=== PATIENT | male | born 1960 | race Caucasian/White ===

== ENCOUNTER 2016-10-01 00:57 | Emergency (ER) | payer OTHER ==
[~2016-10-01] VITALS: Ht 182.9 cm; Wt 106.0 kg
[2016-10-01 01:00] VITALS: BP 227/100; PULSE 93; RESP 18; TEMP 98.1; O2SAT 93
[2016-10-01] MEDS ORDERED: GLIP5TAB8 PO (01:35)
[2016-10-01] MEDS ORDERED: PRAV40TA2 PO (01:35)
[2016-10-01] MEDS ORDERED: AMLO2.5T PO (01:35)
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
[2016-10-01] MEDS ORDERED: amLODIPine BESYLATE 5 MG TAB PO ONE (01:45)
[2016-10-01] MEDS ORDERED: NAPROXEN 500 MG TAB PO ONE (01:45)
[2016-10-01] MEDS ORDERED: HYDROCHLOROTHIAZIDE 12.5 MG CAP PO ONE (01:45)
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
[2016-10-01] MEDS ORDERED: DICL75TA PO (01:57)
== END 2016-10-01 02:16 | disposition home or self-care (01) ==
LOC: NEPB 00:57
DX: M25.512 Pain in left shoulder (principal); I10 Essential (primary) hypertension; E11.9 Type 2 diabetes mellitus without complications; Z87.828 Personal history of other (healed) physical injury and trauma
CPT/HCPCS: 73030; 99283

== ENCOUNTER 2017-05-25 03:21 | Inpatient (IN) | payer OTHER ==
[~2017-05-25] VITALS: Ht 182.9 cm; Wt 92.0 kg
[2017-05-25] VITALS (14 sets, daily range): BP systolic 152–169; BP diastolic 58–85; PULSE 78–100; RESP 16–20; TEMP 96.7–98.7; O2SAT 92–96
[~2017-05-25 03:21] MED LIST: AMLO2.5T PO; DICL75TA PO; GLIP5TAB8 PO; PRAV40TA2 PO
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
[2017-05-25] MEDS ORDERED: SODIUM CHLORIDE 0.9% FLUSH 10 ML FLUSH IVF PRN ×2 (04:00→07:30)
[2017-05-25] MEDS ORDERED: MORPHINE SULFATE 4 MG/ML INJ IV ONE (04:00)
[2017-05-25] MEDS ORDERED: ONDANSETRON HCL 4 MG/2 ML VIAL IVP ONE (04:00)
[2017-05-25 04:38] LABS: AUTOMATED NEUTROPHIL # 4.6 TH/MM3 (1.8-7.7); BASOPHIL % 0.6 % (0.0-2.0); EOSINOPHIL # 0.3 TH/MM3 (0-0.4); EOSINOPHIL % 4.3 % (0.0-4.0); HEMATOCRIT 22.3 % (39.0-51.0); LYMPHOCYTE # 0.7 TH/MM3 (1.0-4.8); MEAN CELL VOLUME 77.3 FL (80.0-100.0); MEAN CORPUSCULAR HEMOGLOBIN 24.7 PG (27.0-34.0); MONO % 7.2 % (0.0-8.0); NEUT % 75.9 % (16.0-70.0); PLATELET COUNT 420 TH/MM3 (150-450); RED BLOOD COUNT 2.88 MIL/MM3 (4.50-5.90); RED CELL DISTRIBUTION WIDTH 15.7 % (11.6-17.2)
--- NOTE | 2017-05-25 04:44 | RADRPT ---
EXAM DATE/TIME: 05/25/2017 04:11 [facility] COMPARISON: No previous studies available for comparison. INDICATIONS : Trauma. Fall. Neck pain. RADIATION DOSE: 26.56 CTDIvol (mGy) ; Patient motion MEDICAL HISTORY : Chronic obstructive pulmonary disease. Diabetes mellitus type 2. Hypertension. SURGICAL HISTORY : None. ENCOUNTER: Initial ACUITY: 1 day PAIN SCALE: 10/10 LOCATION: neck TECHNIQUE: Volumetric scanning of the cervical spine was performed. Multiplanar reconstructions in the sagittal, coronal and oblique axial planes were performed. Using automated exposure control and adjustment o f the mA and/or kV according to patient size, radiation dose was kept as low as reasonably achievable to obtain optimal diagnostic quality images. DICOM format image data is available electronically f or review and comparison. FINDINGS: Mild compression fracture with a nondisplaced oblique transverse mid vertebral body cleft seen at T1, probably acute. No retropulsed fracture fragments or fracture-associated foraminal or spinal stenosi s demonstrated. There is loss of height of C7 with considerable irregularity of the superior endplate, all appears to be chronic. Severe narrowing seen at the C6/C7 disc. There is right greater than left facet osteoarthritis at C7/T1 and a couple millimeters of degenerati ve appearing anterolisthesis. Moderate to severe disc space narrowing and uncovertebral/facet osteoarthritis seen at C5/C6. CONCLUSION: 1. Nondisplaced fracture with mild compression deformity of T1 vertebral body, probably acute. No epi dural hematoma or retropulsed fracture fragments. 2. Other findings appear chronic and please see above. Mario Moreno MD on May 25, 2017 at 4:38 Board Certified Radiologist. This report was verified electronically.
--- NOTE | 2017-05-25 04:50 | RADRPT ---
EXAM DATE/TIME: 05/25/2017 04:22 [facility] COMPARISON: No previous studies available for comparison. INDICATIONS : Left hip pain post fall. MEDICAL HISTORY : None. SURGICAL HISTORY : None. ENCOUNTER: Initial ACUITY: 1 day PAIN SCORE: 7/10 LOCATION: Left pelvis FINDINGS: Examination of the left hip was performed with AP Pelvis. The primary and secondary trabecular patte rn of the femoral neck is intact. The hip joint is of normal width without significant sclerosis or bony hypertrophy. The acetabulum is grossly intact. CONCLUSION: Pelvis and left hip are intact. Mario Moreno MD on May 25, 2017 at 4:49 Board Certified Radiologist. This report was verified electronically.
[2017-05-25 04:52] LABS: CHLORIDE 98 MEQ/L (98-107); POTASSIUM 4.1 MEQ/L (3.5-5.1); SODIUM (NA) 135 MEQ/L (136-145)
--- NOTE | 2017-05-25 04:53 | RADRPT ---
EXAM DATE/TIME: 05/25/2017 04:33 [facility] COMPARISON: No previous studies available for comparison. INDICATIONS : Right wrist pain post fall. MEDICAL HISTORY : None. SURGICAL HISTORY : None. ENCOUNTER: Initial ACUITY: 1 day PAIN SCORE: 7/10 LOCATION: Right upper extremity FINDINGS: No acute fracture or subluxation seen of the right wrist. Chronic appearing destruction of the proximal carpal row noted, especially the lunate and scaphoid. T here is scapholunate interval widening. There is diffuse soft tissue swelling at the level of the carpus. CONCLUSION: 1. There is soft tissue swelling but I don't see an acute fracture or subluxation of the right wrist. 2. Chronic appearing destruction of the lunate and scaphoid, nonspecific but possibly related to old trauma or chronic arthropathy. Mario Moreno MD on May 25, 2017 at 4:49 Board Certified Radiologist. This report was verified electronically.
[2017-05-25 04:54] LABS: HEMO FLAGS AUTO DIFF
[2017-05-25 04:55] LABS: ANION GAP 7 MEQ/L (5-15); BICARBONATE 29.9 MEQ/L (21.0-32.0); BLOOD UREA NITROGEN 45 MG/DL (7-18); PROTHROMBIN TIME - PATIENT 11.2 SEC (9.8-11.6)
--- NOTE | 2017-05-25 04:56 | RADRPT ---
EXAM DATE/TIME: 05/25/2017 04:30 [facility] COMPARISON: No previous studies available for comparison. INDICATIONS : Lumbar spine pain post fall. MEDICAL HISTORY : None. SURGICAL HISTORY : None. ENCOUNTER: Initial ACUITY: 1 day PAIN SCORE: 7/10 LOCATION: Bilateral lumbar spine FINDINGS: No acute fracture or subluxation seen of the lumbar spine. Moderate disc space narrowing with chronic appearing endplate irregularity seen at L4/L5. Similar but milder findings are seen at L3/L4 and L5/S1. Each of these 3 levels have moderate to severe bilatera l facet osteoarthritis. There are a couple millimeters of degenerative appearing anterolisthesis of L 3/L4. Mild dextroconvex curvature noted. CONCLUSION: Chronic appearing findings as above. No fracture or acute-appearing malalignment demonstrated of the lumbar spine. Mario Moreno MD on May 25, 2017 at 4:54 Board Certified Radiologist. This report was verified electronically.
[2017-05-25 04:58] LABS: GLOMERULAR FILTRATION RATE 26 ML/MIN (>89)
--- NOTE | 2017-05-25 04:58 | RADRPT ---
EXAM DATE/TIME: 05/25/2017 04:31 [facility] COMPARISON: No previous studies available for comparison. INDICATIONS : Chest pain post fall. MEDICAL HISTORY : None. SURGICAL HISTORY : None. ENCOUNTER: Initial ACUITY: 1 day PAIN SCORE: 7/10 LOCATION: Bilateral chest FINDINGS: No infiltrate, effusion or pneumothorax. Heart size normal. No acute bony abnormality demonstrated. There are old fractures posteriorly of the left sixth and sev enth ribs, healed. CONCLUSION: No evidence of acute cardiopulmonary disease. Mario Moreno MD on May 25, 2017 at 4:55 Board Certified Radiologist. This report was verified electronically.
[2017-05-25] MEDS: SODIUM CHLOR 0.9% 1000 ML INJ 1,000 ML IV SCH ×6 (05:04→21:46)
[2017-05-25 05:32] LABS: ALCOHOL LESS THAN 3 MG/DL (0-5)
[2017-05-25 05:43] LABS: BLOOD, URINE LARGE (NEG); GLUCOSE,URINE NEG (NEG); KETONE, URINE NEG (NEG); NITRITE,URINE NEG (NEG)
[2017-05-25] MEDS ORDERED: SODIUM CHLOR 0.9% 1000 ML INJ 1,000 ML IV ONE (05:45)
[2017-05-25] MEDS ORDERED: MORPHINE SULFATE 4 MG/ML INJ IV PUSH ONE (05:45)
[2017-05-25] MEDS ORDERED: ONDANSETRON HCL 4 MG/2 ML VIAL IV PUSH ONE ×2 (05:45→08:00)
[2017-05-25 05:51] LABS: INDIRECT BILIRUBIN 0.1 MG/DL (0.0-0.8); TOTAL BILIRUBIN ADULT 0.2 MG/DL (0.2-1.0)
[2017-05-25 05:56] LABS: OVALOCYTES 1+ (NORMAL); SCAN/DIFF AUTO DIFF CONFIRMED
[2017-05-25 06:21] LABS: URINE COLOR YELLOW (YELLW/STRAW)
--- NOTE | 2017-05-25 06:21 | RADRPT ---
EXAM DATE/TIME: 05/25/2017 05:55 [facility] COMPARISON: No previous studies available for comparison. INDICATIONS : Trauma. Fall. Left pelvic pain. ORAL CONTRAST: No oral contrast ingested. RADIATION DOSE: 17.81 CTDIvol (mGy) MEDICAL HISTORY : Chronic obstructive pulmonary disease. Diabetes mellitus type 2. Hypertension. SURGICAL HISTORY : None. ENCOUNTER: Initial ACUITY: 1 day PAIN SCALE: 10/10 LOCATION: Left pelvis TECHNIQUE: Volumetric scanning of the abdomen and pelvis was performed. Using automated exposure control and ad justment of the mA and/or kV according to patient size, radiation dose was kept as low as reasonably achievable to obtain optimal diagnostic quality images. DICOM format image data is available electro nically for review and comparison. FINDINGS: No fracture seen of the visualized osseous structures. Mild bilateral hip osteoarthritis noted. There is disc space narrowing with chronic endplate irregularity at L4/L5. Also moderate osteoarthritis of the pubic symphysis. Innumerable cysts of the liver and both kidneys noted measuring up to 4 cm in size compatible with au tosomal dominant polycystic kidney disease. A few scattered nonobstructing stones of both kidneys are also noted, measuring up to 5 mm in size. No ureteral calculus or hydronephrosis/hydroureter seen. L iver is enlarged, 26 cm cranial caudal. There is also splenomegaly measuring 18.2 cm craniocaudal. No free fluid or blood seen in the abdominal or pelvic cavity. No obstruction or inflammatory changes are seen in the gastrointestinal tract. A fat containing umbilical hernia is noted. No infiltrate or effusion seen the visualized lung bases. CONCLUSION: 1. No visceral organ injury, fracture or other acute abnormality. 2. Degenerative changes of the lumbar spine, both hips and the pubic symphysis. There is considerable end plate irregularity at L4/L5, presumably reactive/degenerative but chronic discitis or the sequel a of previous discitis could have a similar appearance. 3. Findings related to polycystic kidney disease with innumerable variable sized cysts throughout the liver and both kidneys noted. 4. Scattered sub-5 mm nonobstructing stones in both kidneys. 5. Nonspecific hepatosplenomegaly. Mario Moreno MD on May 25, 2017 at 6:14 Board Certified Radiologist. This report was verified electronically.
[2017-05-25 06:24] LABS: SQUAMOUS EPITHELIAL CELL URINE 0-5 /hpf (0-5)
[2017-05-25 06:26] LABS: COMMENT (UR) CULTURE INDICATED; CULTURE IF INDICATED CULTURE INDICATED
[2017-05-25] MEDS ORDERED: HYDROmorphone HCL PF 1 MG/ML VIAL IV PUSH ONE ×2 (06:45→08:00)
[2017-05-25] MEDS ORDERED: cefTRIAXone INJ 1,000 MG in SODIUM CHLORIDE 0.9% INJ 100 ML IV ONE (07:45)
[2017-05-25] MEDS ORDERED: LACTULOSE SYRUP 20 GM/30 ML CUP PO PRN (08:45)
[2017-05-25] MEDS ORDERED: BISACODYL 10 MG SUPP RECTAL PRN (08:45)
[2017-05-25] MEDS ORDERED: DEXTROSE 50% IN WATER 50 ML VIAL(D50) IV PRN (08:45)
[2017-05-25] MEDS ORDERED: ONDANSETRON HCL 4 MG/2 ML VIAL IVP PRN (08:45)
[2017-05-25] MEDS ORDERED: NALOXONE HCL 0.4 MG/ML AMP IV PRN (08:45)
[2017-05-25] MEDS ORDERED: SENNOSIDES 8.6 MG TAB PO PRN (08:45)
[2017-05-25] MEDS ORDERED: SODIUM CHLOR 0.9% 250 ML INJ 250 ML IV ONE (08:45)
[2017-05-25] MEDS ORDERED: ACETAMINOPHEN/HYDROcodone 325 MG/5 MG TAB PO PRN (08:45)
[2017-05-25] MEDS ORDERED: RESP: ALBUTEROL 2.5 MG/IPRATROPIUM 0.5 MG NEB (PRN) NEB (08:45)
[2017-05-25] MEDS ORDERED: GLUCAGON 1 MG/ML VIAL OTHER PRN (08:45)
[2017-05-25] MEDS ORDERED: SODIUM CHLORIDE 0.9% FLUSH 10 ML FLUSH IV FLUSH PRN (08:45)
[2017-05-25] MEDS ORDERED: ACETAMINOPHEN/HYDROcodone 325 MG/10 MG TAB PO PRN (08:45)
[2017-05-25] MEDS ORDERED: ACETAMINOPHEN 325 MG TAB PO PRN (08:45)
[2017-05-25] MEDS: SODIUM CHLORIDE 0.9% FLUSH 10 ML FLUSH IV FLUSH SCH ×2 (09:00→21:44)
[2017-05-25] MEDS ORDERED: SODIUM CHLORIDE 0.9% FLUSH 10 ML FLUSH IV FLUSH SCH (09:00)
[2017-05-25] MEDS: DOCUSATE SODIUM 50 MG/SENNA 8.6 MG TAB PO SCH ×2 (09:41→21:40)
[2017-05-25] MEDS ORDERED: FURO20TA PO (09:48)
[2017-05-25] MEDS ORDERED: IPRAAER INH (09:48)
[2017-05-25] MEDS ORDERED: BUSP10TA PO (09:48)
[2017-05-25] MEDS ORDERED: GABA300C5 PO (09:48)
[2017-05-25] MEDS ORDERED: DOXA1TAB34 PO (09:48)
[2017-05-25] MEDS: INSULIN ASPART SUPPLEMENTAL SCALE SQ SCH ×3 (11:27→21:44)
[2017-05-25] MEDS: GABAPENTIN 300 MG CAP PO SCH ×2 (13:30→21:40)
--- NOTE | 2017-05-25 13:35 | HHI.HP ---
[facility] Service [facility] Primary Care Physician [facility] Admission Diagnosis intractable pain; T1 fracture; anemia; MARICARMEN Diagnoses: Chief Complaint: fall and left upper leg pain Travel History International Travel<30 Days: No Contact w/Intl Traveler <30 Da: No Traveled to Known Affected Are: No History of Present Illness This is a 57-year-old male past medical history of chronic kidney disease, polycystic kidney disease, polycystic liver disease, hypertension, COPD, and anxiety who presented with a fall. Patient stated that he try to prevent his mom from falling down the stairs and fell down with her. He stated that he was able to get up it was very painful and went to his bed. He stated that after he laid down he was not able to get up at all. Because of this he went to the emergency department. Patient was initially seen and [place] in which extensive workup was done. He was found to have nondisplaced fracture of T1 vertebrae with mild compression. Neurosurgeon Dr. Hill consulted and recommended transfer to the [facility]. Patient was seen by me he was complaining of severe left upper leg pain. He said that he feels like his hip might of fracture. Denied any changes in sensation. He denies any back pain. Patient was also found to be anemic. He stated that he has a history anemia and he was told to take ferrous sulfate but he did not take the medication. He stated that he was told that he had an anemia due to his polycystic kidney disease. Patient denies any GI bleed. He does admit feeling fatigue. Denies any chest pain, shortness of breathing, palpitation, lightheadedness or dizziness. All other review symptoms reviewed and negative. Past Family Social History Past Medical History Umbilical hernia Hypertension Chronic pain from L4/L5 COPD/asthma Anxiety disorder Iron deficiency anemia Polycystic kidney disease Polyp cystic liver disease Hyperlipidemia Type 2 diabetes Past Surgical History Right wrist surgery Bilateral knee arthroscopy Reported Medications Reported Meds & Active Scripts Active Diclofenac Sodium DR (Diclofenac Sodium) 75 Mg Tabdr 75 Mg PO BID Reported Gabapentin 300 Mg Cap 300 Mg PO BID Furosemide 20 Mg Tab 20 Mg PO DAILY Doxazosin (Doxazosin Mesylate) 4 Mg Tab 4 Mg PO HS Buspirone (Buspirone HCl) 10 Mg Tab 10 Mg PO TID Combivent Respimat Inh (Ipratropium-Albuterol Inh) 20-100 Usp/Act Aero 1 Puff INH QID Amlodipine (Amlodipine Besylate) 2.5 Mg Tab 2.5 Mg PO DAILY Pravastatin 40 Mg Tab 40 Mg PO DAILY Glipizide 5 Mg Tab 5 Mg PO BIDAC Take 30 minutes before a meal Allergies: Coded Allergies: No Known Allergies (Unverified , 10/01/16) Active Ordered Medications Current Medications Morphine Sulfate (Morphine Inj) 2 mg ONCE ONCE IV Last administered on 05:04; Start 05/25/17 at 04:00; Stop 05/25/17 at 04:01; Status DC Ondansetron HCl (Zofran Inj) 4 mg ONCE ONCE IVP Last administered on 05:04; Start 05/25/17 at 04:00; Stop 05/25/17 at 04:01; Status DC Sodium Chloride (NS Flush) 2 ml UNSCH PRN IVF FLUSH AFTER USING IV ACCESS; Start 05/25/17 at 04:00; Stop 05/25/17 at 09:34; Status DC Sodium Chloride 1,000 ml @ 100 mls/hr Q10H IV Last administered on 05/25/17 05:04; Start 05/25/17 at 04:00 Sodium Chloride 1,000 ml @ 999 mls/hr BOLUS ONCE IV Last administered on 05/25 05:52; Start 05/25/17 at 05:45; Stop 05/25/17 at 06:45; Status DC Ondansetron HCl (Zofran Inj) 4 mg ONCE ONCE IV PUSH Last administered on 05:52; Start 05/25/17 at 05:45; Stop 05/25/17 at 05:46; Status DC Morphine Sulfate (Morphine Inj) 4 mg ONCE ONCE IV PUSH Last administered on 05:52; Start 05/25/17 at 05:45; Stop 05/25/17 at 05:46; Status DC Hydromorphone HCl (Dilaudid Pf Inj) 0.5 mg ONCE ONCE IV PUSH Last administered on 05/25/17 06:42; Start 05/25/17 at 06:45; Stop 05/25/17 at 06:46 ; Status DC Sodium Chloride (NS Flush) 2 ml BID IV FLUSH ; Start 05/25/17 at 09:00 Sodium Chloride (NS Flush) 2 ml UNSCH PRN IVF FLUSH AFTER USING IV ACCESS; Start 05/25/17 at 07:30 Ceftriaxone Sodium 1000 mg/ Sodium Chloride 100 ml @ 200 mls/hr ONCE ONCE IV Last administered on 05/25/17 07:48; Start 05/25/17 at 07:45; Stop 05/25/17 at 08:14; Status DC Ondansetron HCl (Zofran Inj) 4 mg ONCE ONCE IV PUSH Last administered on 08:07; Start 05/25/17 at 08:00; Stop 05/25/17 at 08:01; Status DC Hydromorphone HCl (Dilaudid Pf Inj) 1 mg ONCE ONCE IV PUSH Last administered on 05/25/17 08:07; Start 05/25/17 at 08:00; Stop 05/25/17 at 08:01; Status DC Sodium Chloride 250 ml @ 15 mls/hr ONCE ONCE IV Last administered on 08:45; Start 05/25/17 at 08:45; Stop 05/26/17 at 01:24 Ceftriaxone Sodium 1000 mg/ Sodium Chloride 100 ml @ 200 mls/hr Q24H IV ; Start 05/26/17 at 08:00 Sodium Chloride 1,000 ml @ 100 mls/hr Q10H IV ; Start 05/25/17 at 08:38 Sodium Chloride (NS Flush) 2 ml UNSCH PRN IV FLUSH FLUSH AFTER USING IV ACCESS ; Start 05/25/17 at 08:45; Stop 05/25/17 at 09:33; Status DC Sodium Chloride (NS Flush) 2 ml BID IV FLUSH ; Start 05/25/17 at 09:00; Stop 07/01 at 09:33; Status DC Acetaminophen (Tylenol) 650 mg Q4H PRN PO TEMP > 100.4; Start 05/25/17 at 08:45 Ondansetron HCl (Zofran Inj) 4 mg Q6H PRN IVP NAUSEA OR VOMITING; Start at 08:45 Acetaminophen/ Hydrocodone Bitart ([place] 5-325 Mg) 1 tab Q4H PRN PO PAIN SCALE 3 TO 5; Start 05/25/17 at 08:45; Stop 05/25/17 at 13:15; Status DC Acetaminophen/ Hydrocodone Bitart ([place] 10-325 Mg) 1 tab Q4H PRN PO PAIN SCALE 6 TO 10 Last administered on 05/25/17 09:40; Start 05/25/17 at 08:45; Stop 05/25/17 at 13:15; Status DC Naloxone HCl (Narcan Inj) 0.4 mg UNSCH PRN IV SEE LABEL COMMENTS; Start at 08:45 Senna/Docusate Sodium ([place]-Colace) 1 tab BID PO ; Start 05/25/17 at 10:00 Magnesium Hydroxide (Milk Of Magnesia Liq) 30 ml Q12H PRN PO MILD - MODERATE CONSTIPATION; Start 05/25/17 at 08:45 Sennosides (Senokot) 17.2 mg Q12H PRN PO MODERATE - SEVERE CONSTIPATION; Start 05/25/17 at 08:45 Bisacodyl (Dulcolax Supp) 10 mg DAILY PRN RECTAL SEVERE CONSITIPATION; Start at 08:45 Lactulose (Lactulose Liq) 30 ml DAILY PRN PO SEVERE CONSITIPATION; Start at 08:45 Albuterol/ Ipratropium (Duoneb Neb) 1 ampule Q2HR NEB PRN NEB dyspnea; Start at 08:45 Dextrose (D50w (Vial) Inj) 50 ml UNSCH PRN IV HYPOGLYCEMIA-SEE COMMENTS; Start 05/25/17 at 08:45 Glucagon (Glucagon Inj) 1 mg UNSCH PRN OTHER HYPOGLYCEMIA-SEE COMMENTS; Start 05/25/17 at 08:45 Insulin Aspart (NovoLOG SUPPLEMENTAL SCALE) 1 ACHS SLIDING SCALE SQ Last administered on 05/25/17 11:27; Start 05/25/17 at 11:00 Hydromorphone HCl (Dilaudid Pf Inj) 1 mg Q4H PRN IV PUSH pain 4-10; Start 05/25 at 13:15; Status UNV Oxycodone/ Acetaminophen (Percocet 10-325 Mg) 1 tab Q4H PRN PO pain 1-3; Start 05/25/17 at 13:15; Status UNV Family History Family history is reviewed per patient negative. Social History Patient stated that he is trying to quit tobacco use and he smokes about half a pack per day. Denies any alcohol illicit drug use. 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 Physical Exam Vital Signs Vital Signs Date Time Temp Pulse Resp B/P (MAP) Pulse Ox O2 Delivery O2 Flow Rate FiO2 05/25/17 09:45 97.8 89 20 152/85 (107) 92 05/25/17 07:49 90 16 169/85 (113) 94 Room Air 05/25/17 06:29 88 18 167/84 (111) 95 Room Air 05/25/17 06:16 98 18 162/71 (101) 96 Room Air 05/25/17 06:16 18 05/25/17 05:53 Room Air 05/25/17 05:29 20 05/25/17 04:08 20 96 Room Air 05/25/17 04:08 96 Room Air 05/25/17 03:47 98.7 100 20 154/58 (90) 96 Physical Exam GENERAL: This is a well-nourished, well-developed patient, in a c-collar in pain. SKIN: No rashes, ecchymoses or lesions. Cool and dry. HEAD: Atraumatic. Normocephalic. No temporal or scalp tenderness. EYES: Pupils equal round and reactive. Extraocular motions intact. No scleral icterus. No injection or drainage. ENT: Nose without bleeding, purulent drainage or septal hematoma. Throat without erythema, tonsillar hypertrophy or exudate. Uvula midline. Airway patent. NECK: Trachea midline. No JVD or lymphadenopathy. Supple, nontender, no meningeal signs. CARDIOVASCULAR: Regular rate and rhythm without murmurs, gallops, or rubs. RESPIRATORY: Bilateral wheezing GASTROINTESTINAL: Abdomen soft, non-tender, nondistended. No hepato-splenomegaly , or palpable masses. No guarding. Reducible umbilical hernia noted. MUSCULOSKELETAL: Extremities without clubbing, cyanosis, or edema. Left leg decreased range of motion at the hip due to pain. Tenderness to palpation of the left femur. No calf tenderness. Negative Homans sign bilaterally. NEUROLOGICAL: Awake and alert. Cranial nerves II through XII intact. Motor and sensory grossly within normal limits. Five out of 5 muscle strength in all muscle groups. Normal speech. Laboratory Laboratory Tests Test 05/25/17 04:29 05/25/17 05:16 05/25/17 05:36 White Blood Count 6.0 Red Blood Count 2.88 Hemoglobin 7.1 Hematocrit 22.3 Mean Corpuscular Volume 77.3 Mean Corpuscular Hemoglobin 24.7 Mean Corpuscular Hemoglobin Concent 32.0 Red Cell Distribution Width 15.7 Platelet Count 420 Mean Platelet Volume 6.3 Neutrophils (%) (Auto) 75.9 Lymphocytes (%) (Auto) 12.0 Monocytes (%) (Auto) 7.2 Eosinophils (%) (Auto) 4.3 Basophils (%) (Auto) 0.6 Neutrophils # (Auto) 4.6 Lymphocytes # (Auto) 0.7 Monocytes # (Auto) 0.4 Eosinophils # (Auto) 0.3 Basophils # (Auto) 0.0 CBC Comment AUTO DIFF Differential Comment AUTO DIFF CONFIRMED Ovalocytes 1+ Prothrombin Time 11.2 Prothromb Time International Ratio 1.0 Activated Partial Thromboplast Time 29.0 Blood Urea Nitrogen 45 Creatinine 2.60 Random Glucose 147 Calcium Level 7.8 Sodium Level 135 Potassium Level 4.1 Chloride Level 98 Carbon Dioxide Level 29.9 Anion Gap 7 Estimat Glomerular Filtration Rate 26 Magnesium Level 1.8 Ethyl Alcohol Level LESS THAN 3 Urine Color YELLOW Urine Turbidity HAZY Urine pH 7.0 Urine Specific Edwards 1.011 Urine Protein 30 Urine Glucose (UA) NEG Urine Ketones NEG Urine Occult Blood LARGE Urine Nitrite NEG Urine Bilirubin NEG Urine Leukocyte Esterase SMALL Urine RBC 4-9 Urine WBC 50-99 Urine WBC Clumps FEW Urine Squamous Epithelial Cells 0-5 Microscopic Urinalysis Comment CULTURE INDICATED Total Bilirubin 0.2 Direct Bilirubin 0.1 Indirect Bilirubin 0.1 Aspartate Amino Transf (AST/SGOT) 32 Alanine Aminotransferase (ALT/SGPT) 19 Alkaline Phosphatase 117 Total Protein 7.4 Albumin 2.2 Date/Time Source Procedure Growth Status 05/25/17 08:00 Blood Peripheral Aerobic Blood Culture Pending Received 05/25/17 08:00 Blood Peripheral Anaerobic Blood Culture Pending Received 05/25/17 05:16 Urine Clean Catch Urine Culture Pending Received Result Diagram: 05/25/17 0429 05/25/17 0429 Imaging Last Impressions Lumbar Spine X-Ray 05/25/17 035 Signed Impressions: Service Date/Time: Thursday, May 25, 2017 04:30 - CONCLUSION: Chronic appearing findings as above. No fracture or acute-appearing malalignment demonstrated of the lumbar spine. Mario Moreno MD Chest X-Ray 05/25/17350 Signed Impressions: Service Date/Time: Thursday, May 25, 2017 04:31 - CONCLUSION: No evidence of acute cardiopulmonary disease. Mario Moreno MD Cervical Spine CT 05/25/17350 Signed Impressions: Service Date/Time: Thursday, May 25, 2017 04:11 - CONCLUSION: 1. Nondisplaced fracture with mild compression deformity of T1 vertebral body, probably acute. No epidural hematoma or retropulsed fracture fragments. 2. Other findings appear chronic and please see above. Mario Moreno MD Wrist X-Ray 05/25/17 0000 Signed Impressions: Service Date/Time: Thursday, May 25, 2017 04:33 - CONCLUSION: 1. There is soft tissue swelling but I don't see an acute fracture or subluxation of the right wrist. 2. Chronic appearing destruction of the lunate and scaphoid, nonspecific but possibly related to old trauma or chronic arthropathy. Mario Moreno MD Hip and Pelvis X-Ray 05/25/17 0000 Signed Impressions: Service Date/Time: Thursday, May 25, 2017 04:22 - CONCLUSION: Pelvis and left hip are intact. Mario Moreno MD Abdomen/Pelvis CT 05/25/17 0000 Signed Impressions: Service Date/Time: Thursday, May 25, 2017 05:55 - CONCLUSION: 1. No visceral organ injury, fracture or other acute abnormality. 2. Degenerative changes of the lumbar spine, both hips and the pubic symphysis. There is considerable end plate irregularity at L4/L5, presumably reactive/degenerative but chronic discitis or the sequela of previous discitis could have a similar appearance. 3. Findings related to polycystic kidney disease with innumerable variable sized cysts throughout the liver and both kidneys noted. 4. Scattered sub-5 mm nonobstructing stones in both kidneys. 5. Nonspecific hepatosplenomegaly. MD Arben Bonilla VTE Risk Assessment Caprini VTE Risk Assessment: Mod/High Risk (score >= 2) Caprini Risk Assessment Model Point Value = 1 Point Value = 2 Point Value = 3 Point Value = 5 Age 41-60 Minor surgery BMI > 25 kg/m2 Swollen legs Varicose veins or History of unexplained or recurrent spontaneous Oral contraceptives or hormone replacement Sepsis (< 1 month) Serious lung disease, including pneumonia (< 1 month) Abnormal pulmonary function Acute myocardial infarction Congestive heart failure (< 1 month) History of inflammatory bowel disease Medical patient at bed rest Age 61-74 Arthroscopic surgery Major open surgery (> 45 min) Laparoscopic surgery (> 45 min) Malignancy Confined to bed (> 72 hours) Immobilizing plaster cast Central venous access Age >= 75 History of VTE Family history of VTE Factor V Leiden Prothrombin [id number] Lupus anticoagulant Anticardiolipin antibodies Elevated serum homocysteine Heparin-induced thrombocytopenia Other congenital or acquired thrombophilia Stroke (< 1 month) Elective arthroplasty Hip, pelvis, or leg fracture Acute spinal cord injury (< 1 month) Prophylaxis Regimen Total Risk Factor Score Risk Level Prophylaxis Regimen 0-1 Low Early ambulation 2 Moderate Order ONE of the following: *Sequential Compression Device (SCD) *Heparin 5000 units SQ BID 3-4 Higher Order ONE of the following medications: *Heparin 5000 units SQ TID *Enoxaparin/Lovenox 40 mg SQ daily (WT < 150 kg, CrCl > 30 mL/min) *Enoxaparin/Lovenox 30 mg SQ daily (WT < 150 kg, CrCl > 10-29 mL/min) *Enoxaparin/Lovenox 30 mg SQ BID (WT < 150 kg, CrCl > 30 mL/min) AND/OR *Sequential Compression Device (SCD) 5 or more Highest Order ONE of the following medications: *Heparin 5000 units SQ TID (Preferred with Epidurals) *Enoxaparin/Lovenox 40 mg SQ daily (WT < 150 kg, CrCl > 30 mL/min) *Enoxaparin/Lovenox 30 mg SQ daily (WT < 150 kg, CrCl > 10-29 mL/min) *Enoxaparin/Lovenox 30 mg SQ BID (WT < 150 kg, CrCl > 30 mL/min) AND *Sequential Compression Device (SCD) Assessment and Plan Assessment and Plan 57-year-old male presented with mechanical fall with presented with Nondisplaced with mild compression of T1 vertebrae -Patient in c-collar. To be managed by neurosurgery. Neurosurgery consulted. Left upper leg pain -Hip x-ray was negative. Will get a femur x-ray. -Uncontrolled. Patient received morphine, Dilaudid, Narco which has not improved pain. Patient stated that a lot of works the best. -We will give oxycodone versus Dilaudid when necessary for pain. We'll also start him on Flexeril. COPD/asthma -Patient is asymptomatic but does have wheezing on exam. We'll schedule DuoNeb' s. -He is only on albuterol for this. -Smoking cessation. Chronic kidney disease -We do not have a baseline. Most likely due to polycystic kidney disease this is his baseline. -We'll continue to monitor. Avoid nephrotoxins. Strict ins and outs. Anemia, symptomatic -Patient has a history of iron deficiency anemia secondary to polycystic kidney disease. No signs of active bleeding. -He noted he has been structurally fatigue. Hemoglobin here 7.1. He initially refused transfusion. Patient does agree if repeat hemoglobin is still low he will get transfusion with packed red blood cells. -We'll start patient on ferrous sulfate. -Education given on compliance. Tobacco dependence -Encourage smoking cessation. Patient is already trying to quit. He declined any nicotine patch. Type 2 diabetes -Will hold glipizide. Start him on a insulin sliding scale. Hypoglycemic. Education given. Polycystic kidney disease/polycystic liver disease/hyperlipidemia/hypertension/ anxiety -Resume home medication. DVT prophylaxis -Will hold off on any chemoprophylaxis secondary to possible procedure. Code Status Full code Discussed Condition With Patient and his nurse Physician Certification 2 Midnight Certification Type: Admission for Inpatient Services Order for Inpatient Services The services are ordered in accordance with Medicare regulations or non- Medicare payer requirements, as applicable. In the case of services not specified as inpatient-only, they are appropriately provided as inpatient services in accordance with the 2-midnight benchmark. Estimated LOS (days): 3 3 days is the estimated time the patient will need to remain in the hospital, assuming treatment plan goals are met and no additional complications. Post-Hospital Plan: Mary Ellen Dean MD May 25, 2017 13:35
[2017-05-25] MEDS ORDERED: PILL SPLITTER OTHER PRN (13:45)
[2017-05-25] MEDS: HYDROmorphone HCL PF 1 MG/ML VIAL IV PUSH PRN ×3 (13:47→21:41)
[2017-05-25] MEDS: oxyCODONE/ACETAMINOPHEN 10 MG/325 MG TAB PO PRN ×3 (13:48→23:45)
[2017-05-25] MEDS: amLODIPine BESYLATE 5 MG TAB PO SCH (13:49)
[2017-05-25] MEDS: CYCLOBENZAPRINE HCL 10 MG TAB PO SCH ×2 (13:49→21:41)
--- NOTE | 2017-05-25 15:08 | RADRPT ---
EXAM DATE/TIME: 05/25/2017 14:32 [facility] COMPARISON: No previous studies available for comparison. INDICATIONS : Fall, left hip pain. MEDICAL HISTORY : None. SURGICAL HISTORY : None. ENCOUNTER: Subsequent ACUITY: 2 days PAIN SCORE: 8/10 LOCATION: Left hip FINDINGS: Two view examination of the left femur demonstrates no evidence of fracture or dislocation. Bony min eralization is normal. The soft tissue structures are intact. CONCLUSION: No acute disease. Charanjit Orr MD on May 25, 2017 at 15:06 Board Certified Radiologist. This report was verified electronically.
[2017-05-25] MEDS: RESP: ALBUTEROL 2.5 MG/IPRATROPIUM 0.5 MG NEB (SCH) NEB ×2 (15:46→20:53)
[2017-05-25 16:35] LABS: RETIC % 1.6 % (0.4-3.0)
[2017-05-25 16:36] LABS: REVIEW FLAG FINAL
--- NOTE | 2017-05-25 17:14 | PD.CONS ---
History of Present Illness Service Neurosurgery Consult Requested By Emergency room-Dr. Singh Reason for Consult T1 fracture Primary Care Physician [facility] Diagnoses: History of Present Illness 57-year-old male was helping his mother down some stairs on Friday morning when they both fell. He had immediate onset of back and left hip and groin pain. He went to bed last evening and the pain continued to increase. He was brought to the emergency room per EMS today. His initial x-rays revealed a T1 nondisplaced fracture. He complains of neck pain as well as rather severe left lateral hip pain with radiation to the left lateral hip and thigh. He complains of mild numbness in the left anterior thigh. No bowel or bladder dysfunction. He does have a history of chronic back pain. States he has had abnormalities at the L4-5 level. Has had previous episodes of sciatica. Review of Systems Constitutional: DENIES: Fever Eyes: DENIES: Blurred vision, Diplopia Ears, nose, mouth, throat: DENIES: Vertigo Respiratory: DENIES: Shortness of breath Cardiovascular: DENIES: Chest pain, Palpitations Gastrointestinal: DENIES: Abdominal pain, Nausea Genitourinary: COMPLAINS OF: Urgency, Dysuria Musculoskeletal: COMPLAINS OF: Joint pain, Muscle aches Hematologic/lymphatic: DENIES: Bruising Neurologic: COMPLAINS OF: Abnormal gait, DENIES: Headache Psychiatric: DENIES: Anxiety Past Family Social History Allergies: Coded Allergies: No Known Allergies (Unverified , 10/01/16) Past Medical History Polycystic kidney disease Asthma COPD Umbilical hernia Hypertension High cholesterol 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 Past Surgical History Distal right forearm/hand graft Bilateral arthroscopic knee surgery Reported Medications Reported Meds & Active Scripts Active Diclofenac Sodium DR (Diclofenac Sodium) 75 Mg Tabdr 75 Mg PO BID Reported Gabapentin 300 Mg Cap 300 Mg PO BID Furosemide 20 Mg Tab 20 Mg PO DAILY Doxazosin (Doxazosin Mesylate) 4 Mg Tab 4 Mg PO HS Buspirone (Buspirone HCl) 10 Mg Tab 10 Mg PO TID Combivent Respimat Inh (Ipratropium-Albuterol Inh) 20-100 Nursing Home/Act Aero 1 Puff INH QID Amlodipine (Amlodipine Besylate) 2.5 Mg Tab 2.5 Mg PO DAILY Pravastatin 40 Mg Tab 40 Mg PO DAILY Glipizide 5 Mg Tab 5 Mg PO BIDAC Take 30 minutes before a meal Family History Mother with cancer Follow with heart disease Social History Tobacco use Denies alcohol use Physical Exam Vital Signs Vital Signs Date Time Temp Pulse Resp B/P (MAP) Pulse Ox O2 Delivery O2 Flow Rate FiO2 05/25/17 16:07 97.1 86 18 160/71 92 05/25/17 15:47 97.2 82 20 161/77 93 05/25/17 15:47 97.2 82 20 161/72 93 05/25/17 12:00 96.8 85 19 159/76 (103) 93 05/25/17 09:45 97.8 89 20 152/85 (107) 92 05/25/17 07:49 90 16 169/85 (113) 94 Room Air 05/25/17 06:29 88 18 167/84 (111) 95 Room Air 05/25/17 06:16 98 18 162/71 (101) 96 Room Air 05/25/17 06:16 18 05/25/17 05:53 Room Air 05/25/17 05:29 20 05/25/17 04:08 20 96 Room Air 05/25/17 04:08 96 Room Air 05/25/17 03:47 98.7 100 20 154/58 (90) 96 Physical Exam GENERAL: This is a well-nourished, well-developed patient, in no apparent distress. SKIN: No rashes, ecchymoses or lesions. Cool and dry. HEAD: Atraumatic. Normocephalic. No temporal or scalp tenderness. EYES: Pupils equal round and reactive. Extraocular motions intact. No scleral icterus. No injection or drainage. ENT: Nose without bleeding, purulent drainage or septal hematoma. Throat without erythema, tonsillar hypertrophy or exudate. Uvula midline. Airway patent. NECK: Trachea midline. No JVD or lymphadenopathy. Supple, nontender, no meningeal signs. CARDIOVASCULAR: Regular rate and rhythm without murmurs, gallops, or rubs. RESPIRATORY: Clear to auscultation. Breath sounds equal bilaterally. No wheezes , rales, or rhonchi. GASTROINTESTINAL: Abdomen soft, non-tender, nondistended. No hepato-splenomegaly , or palpable masses. No guarding. MUSCULOSKELETAL: Significant tenderness over the left sciatic notch greater than left mid gluteal musculature. Mild to moderate left lateral hip- trochanteric bursa tenderness. Moderate discomfort in the left hip with right lower extremity motor testing. Positive edema and tenderness with some chronic deformity in the right wrist and thumb. NEUROLOGICAL: Awake and alert Oriented X3 Speech is clear Conversant and appropriate Follow simple commands well Answers questions appropriately Reasonable judgment and insight Recent and remote memory are intact No evidence of anxiety or depression Pupils are 3 mm mildly reactive to light Extraocular movements, visual lr to confrontation, facial sensory and motor , tongue, palate, and sternocleidomastoid testing are intact. Normal bilateral shoulder shrug. Sensation intact to light touch upper extremities with mild diffuse decrease light touch distal lower extremities Right hand intrinsics 3/5 Tibialis anterior 3+/5 right and 4/5 left Cinthya's response absent bilateral No ankle clonus Plantar response is neutral Otherwise normal strength in major flexion and extension groups throughout the upper and lower extremities Left mild gluteal tenderness and severe sciatic notch tenderness Laboratory Laboratory Tests Test 05/25/17 04:29 05/25/17 05:16 05/25/17 05:36 05/25/17 14:24 White Blood Count 6.0 Red Blood Count 2.88 Hemoglobin 7.1 Hematocrit 22.3 Mean Corpuscular Volume 77.3 Mean Corpuscular Hemoglobin 24.7 Mean Corpuscular Hemoglobin Concent 32.0 Red Cell Distribution Width 15.7 Platelet Count 420 Mean Platelet Volume 6.3 Neutrophils (%) (Auto) 75.9 Lymphocytes (%) (Auto) 12.0 Monocytes (%) (Auto) 7.2 Eosinophils (%) (Auto) 4.3 Basophils (%) (Auto) 0.6 Neutrophils # (Auto) 4.6 Lymphocytes # (Auto) 0.7 Monocytes # (Auto) 0.4 Eosinophils # (Auto) 0.3 Basophils # (Auto) 0.0 CBC Comment AUTO DIFF Differential Comment AUTO DIFF CONFIRMED Ovalocytes 1+ Prothrombin Time 11.2 Prothromb Time International Ratio 1.0 Activated Partial Thromboplast Time 29.0 Blood Urea Nitrogen 45 Creatinine 2.60 Random Glucose 147 Calcium Level 7.8 Sodium Level 135 Potassium Level 4.1 Chloride Level 98 Carbon Dioxide Level 29.9 Anion Gap 7 Estimat Glomerular Filtration Rate 26 Magnesium Level 1.8 Ethyl Alcohol Level LESS THAN 3 Urine Color YELLOW Urine Turbidity HAZY Urine pH 7.0 Urine Specific [place] 1.011 Urine Protein 30 Urine Glucose (UA) NEG Urine Ketones NEG Urine Occult Blood LARGE Urine Nitrite NEG Urine Bilirubin NEG Urine Leukocyte Esterase SMALL Urine RBC 4-9 Urine WBC 50-99 Urine WBC Clumps FEW Urine Squamous Epithelial Cells 0-5 Microscopic Urinalysis Comment CULTURE INDICATED Total Bilirubin 0.2 Direct Bilirubin 0.1 Indirect Bilirubin 0.1 Aspartate Amino Transf (AST/SGOT) 32 Alanine Aminotransferase (ALT/SGPT) 19 Alkaline Phosphatase 117 Total Protein 7.4 Albumin 2.2 Reticulocyte Count 1.6 Absolute Reticulocyte Count 38.3 Test 05/25/17 14:35 Hemoglobin 6.2 Date/Time Source Procedure Growth Status 05/25/17 08:00 Blood Peripheral Aerobic Blood Culture Pending Received 05/25/17 08:00 Blood Peripheral Anaerobic Blood Culture Pending Received 05/25/17 05:16 Urine Clean Catch Urine Culture Pending Received Result Diagram: 05/25/17 1435 05/25/17 0429 Imaging Last Impressions Femur X-Ray 05/25/17 1359 Signed Impressions: Service Date/Time: Thursday, May 25, 2017 14:32 - CONCLUSION: No acute disease. Charanjit Orr MD Lumbar Spine X-Ray 05/25/17 0351 Signed Impressions: Service Date/Time: Thursday, May 25, 2017 04:30 - CONCLUSION: Chronic appearing findings as above. No fracture or acute-appearing malalignment demonstrated of the lumbar spine. Mario Moreno MD Chest X-Ray 05/25/17 0351 Signed Impressions: Service Date/Time: Thursday, May 25, 2017 04:31 - CONCLUSION: No evidence of acute cardiopulmonary disease. Mario Moreno MD Cervical Spine CT 05/25/17 0351 Signed Impressions: Service Date/Time: Thursday, May 25, 2017 04:11 - CONCLUSION: 1. Nondisplaced fracture with mild compression deformity of T1 vertebral body, probably acute. No epidural hematoma or retropulsed fracture fragments. 2. Other findings appear chronic and please see above. Mario Moreno MD Wrist X-Ray 05/25/17 0000 Signed Impressions: Service Date/Time: Thursday, May 25, 2017 04:33 - CONCLUSION: 1. There is soft tissue swelling but I don't see an acute fracture or subluxation of the right wrist. 2. Chronic appearing destruction of the lunate and scaphoid, nonspecific but possibly related to old trauma or chronic arthropathy. Mario Moreno MD Hip and Pelvis X-Ray 05/25/17 0000 Signed Impressions: Service Date/Time: Thursday, May 25, 2017 04:22 - CONCLUSION: Pelvis and left hip are intact. Mario Moreno MD Abdomen/Pelvis CT 05/25/17 0000 Signed Impressions: Service Date/Time: Thursday, May 25, 2017 05:55 - CONCLUSION: 1. No visceral organ injury, fracture or other acute abnormality. 2. Degenerative changes of the lumbar spine, both hips and the pubic symphysis. There is considerable end plate irregularity at L4/L5, presumably reactive/degenerative but chronic discitis or the sequela of previous discitis could have a similar appearance. 3. Findings related to polycystic kidney disease with innumerable variable sized cysts throughout the liver and both kidneys noted. 4. Scattered sub-5 mm nonobstructing stones in both kidneys. 5. Nonspecific hepatosplenomegaly. Mario Moreno MD Assessment and Plan Assessment and Plan Impression: 1. Mild T1 compression fracture without significant retropulsion. 2. Significant cervical spondylosis and degenerative disc disease with question of previous discitis 3. L4 5 severe degenerative changes with question of previous discitis. 4. Probable chronic left L5 radiculopathy with motor deficit 5. Left gluteal myofascial injury. Probable mild left sciatic nerve contusion. Plan: Short course of Toradol [place] J cervical collar Out of bed with assistance PT eval and treat Marko Hill MD May 25, 2017 17:14
[2017-05-25] MEDS: busPIRone HCL 10 MG TAB PO SCH (17:46)
[2017-05-25] MEDS: DOXAZOSIN MESYLATE 4 MG TAB PO SCH (21:39)
[2017-05-25] MEDS: FERROUS SULFATE 325 MG (65 MG ELEMENTAL IRON) TAB PO SCH (21:40)
[2017-05-25] MEDS: KETOROLAC TROMETHAMINE 30 MG/ML (IVP) VIAL IV PUSH SCH (23:45)
[2017-05-26] VITALS (7 sets, daily range): BP systolic 128–165; BP diastolic 73–100; PULSE 73–88; RESP 17–21; TEMP 96.7–96.9; O2SAT 92–94
[2017-05-26] MEDS: HYDROmorphone HCL PF 1 MG/ML VIAL IV PUSH PRN ×2 (01:58→06:15)
[2017-05-26] MEDS: oxyCODONE/ACETAMINOPHEN 10 MG/325 MG TAB PO PRN ×5 (04:59→21:51)
[2017-05-26] MEDS: KETOROLAC TROMETHAMINE 30 MG/ML (IVP) VIAL IV PUSH SCH ×3 (05:00→17:39)
[2017-05-26] MEDS: CYCLOBENZAPRINE HCL 10 MG TAB PO SCH ×3 (05:00→20:52)
[2017-05-26 05:37] LABS: AUTOMATED NEUTROPHIL # 3.9 TH/MM3 (1.8-7.7); BASOPHIL % 0.6 % (0.0-2.0); EOSINOPHIL # 0.4 TH/MM3 (0-0.4); EOSINOPHIL % 6.8 % (0.0-4.0); HEMATOCRIT 26.4 % (39.0-51.0); HEMO FLAGS DIFF FINAL; LYMPH % 21.1 % (9.0-44.0); LYMPHOCYTE # 1.3 TH/MM3 (1.0-4.8); MEAN CELL VOLUME 80.6 FL (80.0-100.0); MEAN CORPUSCULAR HEMOGLOBIN 26.1 PG (27.0-34.0); MEAN CORPUSCULAR HGB CONC 32.4 % (32.0-36.0); MONO % 8.8 % (0.0-8.0); NEUT % 62.7 % (16.0-70.0); PLATELET COUNT 308 TH/MM3 (150-450); RED BLOOD COUNT 3.27 MIL/MM3 (4.50-5.90); RED CELL DISTRIBUTION WIDTH 16.5 % (11.6-17.2); WHITE BLOOD COUNT 6.2 TH/MM3 (4.0-11.0)
[2017-05-26 05:57] LABS: BICARBONATE 27.3 MEQ/L (21.0-32.0)
[2017-05-26 06:04] LABS: FERRITIN 154 NG/ML (26-388); LDH SERUM 196 U/L (87-241); TRANSFERRIN IRON PROFILE 191 MG/DL (200-360)
[2017-05-26] MEDS: INSULIN ASPART SUPPLEMENTAL SCALE SQ SCH ×4 (06:15→20:52)
[2017-05-26] MEDS: RESP: ALBUTEROL 2.5 MG/IPRATROPIUM 0.5 MG NEB (SCH) NEB ×4 (07:58→19:00)
[2017-05-26] MEDS: cefTRIAXone INJ 1,000 MG in SODIUM CHLORIDE 0.9% INJ 100 ML IV SCH (08:36)
[2017-05-26] MEDS: GABAPENTIN 300 MG CAP PO SCH ×2 (08:37→20:52)
[2017-05-26] MEDS: PRAVASTATIN SOD 40 MG TAB PO SCH (08:37)
[2017-05-26] MEDS: SODIUM CHLORIDE 0.9% FLUSH 10 ML FLUSH IV FLUSH SCH ×2 (08:37→20:51)
[2017-05-26] MEDS: FERROUS SULFATE 325 MG (65 MG ELEMENTAL IRON) TAB PO SCH ×2 (08:37→20:52)
[2017-05-26] MEDS: busPIRone HCL 10 MG TAB PO SCH ×3 (08:38→17:39)
[2017-05-26] MEDS: DOCUSATE SODIUM 50 MG/SENNA 8.6 MG TAB PO SCH ×2 (08:38→20:51)
[2017-05-26] MEDS: MAGNESIUM HYDROXIDE SUSP 30 ML CUP PO PRN ×2 (08:40→20:51)
[2017-05-26] MEDS: amLODIPine BESYLATE 5 MG TAB PO SCH (08:53)
--- NOTE | 2017-05-26 10:31 | HHI.NSPN ---
(Vamsi Pino) History Chief Complaint: Left hip & thigh pain. (Vamsi Pino) Interval History 05/25: 57-year-old male was helping his mother down some stairs on Friday morning 06/03/17 when they both fell. He had immediate onset of back and left hip and groin pain. He went to bed last evening and the pain continued to increase. He was brought to the emergency room per EMS today. His initial x- rays revealed a T1 nondisplaced fracture. He complains of neck pain as well as rather severe left lateral hip pain with radiation to the left lateral hip and thigh. He complains of mild numbness in the left anterior thigh. No bowel or bladder dysfunction. He does have a history of chronic back pain. States he has had abnormalities at the L4-5 level. Has had previous episodes of sciatica. 05/26: Patient is asleep but awakens to verbal stimulation. He is alert and interactive after that. His major complaint is pain to the left hip and thigh which causes him not to be able to get up. He does state he has some pain to the upper back/lower neck. He has the [place] cervical collar in place but the front half is off. (Vamsi Pino) System Review Comments Constitutional: Patient denies any fever or chills. HEENT: Patient denies any visual or hearing difficulty. Respiratory: Patient denies any shortness of breath or productive cough. Cardiovascular: Patient denies any chest pain, palpitations or irregular heartbeat. Gastrointestinal: Patient denies any abdominal pain, nausea, vomiting or incontinence of stool. Genitourinary: Patient denies any incontinence of urine. Musculoskeletal: Patient complains of left hip and thigh pain and upper back/ lower neck pain. Neurologic: Patient denies any headache, dizziness, numbness or tingling. (Vamsi Pino) Exam Results 05/24/17 05/24/17 05/25/17 05/25/17 05/26/17 05/26/17 06:00 18:00 06:00 18:00 06:00 18:00 Intake Total 1000 ml 980 ml Output Total 600 ml 700 ml Balance 400 ml 280 ml Intake Oral 480 ml IV Total 1000 ml Packed Cells 500 ml Output Urine Total 600 ml 700 ml # Voids 2 1 # Bowel Movements 0 Vital Signs Date Time Temp Pulse Resp B/P (MAP) Pulse Ox O2 Delivery O2 Flow Rate FiO2 05/26/17 07:59 Nasal Cannula 2.00 05/26/17 06:02 92 Nasal Cannula 2.00 05/26/17 04:15 96.9 73 21 128/73 (91) 92 05/26/17 00:30 96.7 76 19 138/75 (96) 94 05/25/17 21:14 96.7 78 19 161/77 92 05/25/17 20:57 93 Nasal Cannula 2.00 05/25/17 18:46 97.5 80 19 161/80 93 05/25/17 18:29 97.7 82 20 161/77 93 05/25/17 16:07 97.1 86 18 160/71 92 05/25/17 16:00 97.2 82 20 161/77 (105) 93 05/25/17 15:47 97.2 82 20 161/77 93 05/25/17 15:47 97.2 82 20 161/72 93 05/25/17 12:00 96.8 85 19 159/76 (103) 93 05/25/17 09:45 97.8 89 20 152/85 (107) 92 05/25/17 07:49 90 16 169/85 (113) 94 Room Air 05/25/17 06:29 88 18 167/84 (111) 95 Room Air 05/25/17 06:16 98 18 162/71 (101) 96 Room Air 05/25/17 06:16 18 05/25/17 05:53 Room Air 05/25/17 05:29 20 05/25/17 04:08 20 96 Room Air 05/25/17 04:08 96 Room Air 05/25/17 03:47 98.7 100 20 154/58 (90) 96 (Vamsi iPno) Physical Examination GENERAL: Patient asleep but awakens to verbal stimulation. After that awake & alert and readily interacts. Affect essentially normal. No distress but moderate to severe discomfort with movement of LLE. SKIN: No rashes, ecchymoses or lesions. Cool and dry. HEENT: Normocephalic, atraumatic. NECK: [place] cervical collar on posteriorly but front is off, TTP at the cervicothoracic junction, no JVD, trachea midline. MUSCULOSKELETAL: Significant tenderness over the left sciatic notch greater than left mid gluteal musculature. Mild to moderate left lateral hip- trochanteric bursa tenderness. Moderate discomfort in the left hip with right lower extremity motor testing. Positive edema and tenderness with some chronic deformity in the right wrist and thumb. NEUROLOGICAL: AAOx3. Speech clear & appropriate. Follow simple commands well. Sensation intact to light touch upper extremities with mild diffuse decrease light touch distal lower extremities Tibialis anterior 3+/5 right and 4/5 left otherwise normal to bilateral lower extremities & upper extremities. (Vamsi Pino) Lab, Micro, Other Results Recent Impressions Femur X-Ray 05/25/17 1359 Signed Impressions: Service Date/Time: Thursday, May 25, 2017 14:32 - CONCLUSION: No acute disease. Charanjit Orr MD Lumbar Spine X-Ray 05/25/17 035 Signed Impressions: Service Date/Time: Thursday, May 25, 2017 04:30 - CONCLUSION: Chronic appearing findings as above. No fracture or acute-appearing malalignment demonstrated of the lumbar spine. Mario Moreno MD Chest X-Ray 05/25/17 035 Signed Impressions: Service Date/Time: Thursday, May 25, 2017 04:31 - CONCLUSION: No evidence of acute cardiopulmonary disease. Mario Moreno MD Cervical Spine CT 05/25/17 035 Signed Impressions: Service Date/Time: Thursday, May 25, 2017 04:11 - CONCLUSION: 1. Nondisplaced fracture with mild compression deformity of T1 vertebral body, probably acute. No epidural hematoma or retropulsed fracture fragments. 2. Other findings appear chronic and please see above. Mario Moreno MD Wrist X-Ray 05/25/17 0000 Signed Impressions: Service Date/Time: Thursday, May 25, 2017 04:33 - CONCLUSION: 1. There is soft tissue swelling but I don't see an acute fracture or subluxation of the right wrist. 2. Chronic appearing destruction of the lunate and scaphoid, nonspecific but possibly related to old trauma or chronic arthropathy. Mario Moreno MD Hip and Pelvis X-Ray 05/25/17 0000 Signed Impressions: Service Date/Time: Thursday, May 25, 2017 04:22 - CONCLUSION: Pelvis and left hip are intact. Mario Moreno MD Abdomen/Pelvis CT 05/25/17 0000 Signed Impressions: Service Date/Time: Thursday, May 25, 2017 05:55 - CONCLUSION: 1. No visceral organ injury, fracture or other acute abnormality. 2. Degenerative changes of the lumbar spine, both hips and the pubic symphysis. There is considerable end plate irregularity at L4/L5, presumably reactive/degenerative but chronic discitis or the sequela of previous discitis could have a similar appearance. 3. Findings related to polycystic kidney disease with innumerable variable sized cysts throughout the liver and both kidneys noted. 4. Scattered sub-5 mm nonobstructing stones in both kidneys. 5. Nonspecific hepatosplenomegaly. Mario Moreno MD Laboratory Tests Test 05/25/17 04:29 05/25/17 05:16 05/25/17 05:36 05/25/17 14:24 White Blood Count 6.0 TH/MM3 Red Blood Count 2.88 MIL/MM3 Hemoglobin 7.1 GM/DL Hematocrit 22.3 % Mean Corpuscular Volume 77.3 FL Mean Corpuscular Hemoglobin 24.7 PG Mean Corpuscular Hemoglobin Concent 32.0 % Red Cell Distribution Width 15.7 % Platelet Count 420 TH/MM3 Mean Platelet Volume 6.3 FL Neutrophils (%) (Auto) 75.9 % Lymphocytes (%) (Auto) 12.0 % Monocytes (%) (Auto) 7.2 % Eosinophils (%) (Auto) 4.3 % Basophils (%) (Auto) 0.6 % Neutrophils # (Auto) 4.6 TH/MM3 Lymphocytes # (Auto) 0.7 TH/MM3 Monocytes # (Auto) 0.4 TH/MM3 Eosinophils # (Auto) 0.3 TH/MM3 Basophils # (Auto) 0.0 TH/MM3 CBC Comment AUTO DIFF Differential Comment AUTO DIFF CONFIRMED Ovalocytes 1+ Prothrombin Time 11.2 SEC Prothromb Time International Ratio 1.0 RATIO Activated Partial Thromboplast Time 29.0 SEC Blood Urea Nitrogen 45 MG/DL Creatinine 2.60 MG/DL Random Glucose 147 MG/DL Calcium Level 7.8 MG/DL Sodium Level 135 MEQ/L Potassium Level 4.1 MEQ/L Chloride Level 98 MEQ/L Carbon Dioxide Level 29.9 MEQ/L Anion Gap 7 MEQ/L Estimat Glomerular Filtration Rate 26 ML/MIN Magnesium Level 1.8 MG/DL Ethyl Alcohol Level LESS THAN 3 MG/DL Urine Color YELLOW Urine Turbidity HAZY Urine pH 7.0 Urine Specific [place] 1.011 Urine Protein 30 mg/dL Urine Glucose (UA) NEG mg/dL Urine Ketones NEG mg/dL Urine Occult Blood LARGE Urine Nitrite NEG Urine Bilirubin NEG Urine Leukocyte Esterase SMALL Urine RBC 4-9 /hpf Urine WBC 50-99 /hpf Urine WBC Clumps FEW Urine Squamous Epithelial Cells 0-5 /hpf Microscopic Urinalysis Comment CULTURE INDICATED Total Bilirubin 0.2 MG/DL Direct Bilirubin 0.1 MG/DL Indirect Bilirubin 0.1 MG/DL Aspartate Amino Transf (AST/SGOT) 32 U/L Alanine Aminotransferase (ALT/SGPT) 19 U/L Alkaline Phosphatase 117 U/L Total Protein 7.4 GM/DL Albumin 2.2 GM/DL Reticulocyte Count 1.6 % Absolute Reticulocyte Count 38.3 MIL/L Test 05/25/17 14:35 05/26/17 04:57 Hemoglobin 6.2 GM/DL 8.6 GM/DL White Blood Count 6.2 TH/MM3 Red Blood Count 3.27 MIL/MM3 Hematocrit 26.4 % Mean Corpuscular Volume 80.6 FL Mean Corpuscular Hemoglobin 26.1 PG Mean Corpuscular Hemoglobin Concent 32.4 % Red Cell Distribution Width 16.5 % Platelet Count 308 TH/MM3 Mean Platelet Volume 6.1 FL Neutrophils (%) (Auto) 62.7 % Lymphocytes (%) (Auto) 21.1 % Monocytes (%) (Auto) 8.8 % Eosinophils (%) (Auto) 6.8 % Basophils (%) (Auto) 0.6 % Neutrophils # (Auto) 3.9 TH/MM3 Lymphocytes # (Auto) 1.3 TH/MM3 Monocytes # (Auto) 0.5 TH/MM3 Eosinophils # (Auto) 0.4 TH/MM3 Basophils # (Auto) 0.0 TH/MM3 CBC Comment DIFF FINAL Differential Comment Haptoglobin 341 MG/DL Blood Urea Nitrogen 50 MG/DL Creatinine 2.73 MG/DL Random Glucose 76 MG/DL Calcium Level 8.2 MG/DL Sodium Level 137 MEQ/L Potassium Level 5.0 MEQ/L Chloride Level 104 MEQ/L Carbon Dioxide Level 27.3 MEQ/L Anion Gap 6 MEQ/L Estimat Glomerular Filtration Rate 24 ML/MIN Iron Level 27 MCG/DL Total Iron Binding Capacity 267 MCG/DL Percent Iron Saturation 10.1 % Ferritin 154 NG/ML Lactate Dehydrogenase 196 U/L Vitamin B12 Level 511 PG/ML Folate 11.1 NG/ML (Vamsi Pino) Medical Decision Making Impression and Plan Impression: 1. Mild T1 compression fracture without significant retropulsion. 2. Significant cervical spondylosis and degenerative disc disease with question of previous discitis 3. L4 5 severe degenerative changes with question of previous discitis. 4. Probable chronic left L5 radiculopathy with motor deficit 5. Left gluteal myofascial injury. Probable mild left sciatic nerve contusion. Patient still with significant left hip/thigh pain that isn't controlled. The pain to his T1 fracture seems to be controlled. Neurological exam stable. Plan: Short course of Toradol [place] cervical collar Out of bed with assistance PT eval and treat (Vamsi Pino) Attending Statement The exam, history, and the medical decision-making described in the above note were completed with the assistance of the mid-level provider. I reviewed and agree with the findings presented. I attest that I had a [id number] encounter with the patient on the same day, and personally performed and documented my assessment and findings in the medical record. On my examination today, the patient remains with significant left hip and gluteal myofascial pain and tenderness, increased with range of motion. Possible mild sciatic nerve contusion. Continue conservative treatment with medications, therapy. Continue cervical brace for T1 fracture Mobilized out of bed with brace Plans discussed with patient. (Marko Hill MD) Vamsi Pino May 26, 2017 10:31 Marko Hill MD May 26, 2017 10:41
--- NOTE | 2017-05-26 10:44 | HHI.PR ---
Subjective Remarks Follow-up for left upper leg pain T1 nondisplaced fracture Patient now complaining of left gluteal pain. Otherwise he has no other complaints. She stated that IV Dilaudid is on medication that works for him. Dealt with patient's nurse. Objective Vitals Vital Signs Date Time Temp Pulse Resp B/P (MAP) Pulse Ox O2 Delivery O2 Flow Rate FiO2 05/26/17 08:00 96.8 85 18 156/100 (118) 92 05/26/17 07:59 Nasal Cannula 2.00 05/26/17 06:02 92 Nasal Cannula 2.00 05/26/17 04:15 96.9 73 21 128/73 (91) 92 05/26/17 00:30 96.7 76 19 138/75 (96) 94 05/25/17 21:14 96.7 78 19 161/77 92 05/25/17 20:57 93 Nasal Cannula 2.00 05/25/17 18:46 97.5 80 19 161/80 93 05/25/17 18:29 97.7 82 20 161/77 93 05/25/17 16:07 97.1 86 18 160/71 92 05/25/17 16:00 97.2 82 20 161/77 (105) 93 05/25/17 15:47 97.2 82 20 161/77 93 05/25/17 15:47 97.2 82 20 161/72 93 05/25/17 12:00 96.8 85 19 159/76 (103) 93 I/O 05/25/17 05/25/17 05/25/17 05/26/17 05/26/17 05/26/17 07:00 15:00 23:00 07:00 15:00 23:00 Intake Total 1000 ml 740 ml 240 ml Output Total 600 ml 700 ml Balance 1000 ml -600 ml 740 ml -460 ml Intake Oral 240 ml 240 ml IV Total 1000 ml Packed Cells 500 ml Output Urine Total 600 ml 700 ml # Voids 2 1 # Bowel Movements 0 0 Result Diagram: 05/26/1745605/26/17456 Objective Remarks GENERAL: This is a well-nourished, well-developed patient, in a c-collar in place NECK: Trachea midline. No JVD or lymphadenopathy. Supple, nontender, no meningeal signs. CARDIOVASCULAR: Regular rate and rhythm without murmurs, gallops, or rubs. RESPIRATORY: CTA B/L GASTROINTESTINAL: Abdomen soft, non-tender, nondistended. No hepato-splenomegaly , or palpable masses. No guarding. Reducible umbilical hernia noted. MUSCULOSKELETAL:B/L lower extremity full range of motion. Tenderness palpation in the left gluteal area. NEUROLOGICAL: Awake and alert. Cranial nerves II through XII intact. Motor and sensory grossly within normal limits. Five out of 5 muscle strength in all muscle groups. Normal speech. Medications and IVs Current Medications Morphine Sulfate (Morphine Inj) 2 mg ONCE ONCE IV Last administered on 05:04; Start 05/25/17 at 04:00; Stop 05/25/17 at 04:01; Status DC Ondansetron HCl (Zofran Inj) 4 mg ONCE ONCE IVP Last administered on 05:04; Start 05/25/17 at 04:00; Stop 05/25/17 at 04:01; Status DC Sodium Chloride (NS Flush) 2 ml UNSCH PRN IVF FLUSH AFTER USING IV ACCESS; Start 05/25/17 at 04:00; Stop 05/25/17 at 09:34; Status DC Sodium Chloride 1,000 ml @ 100 mls/hr Q10H IV Last administered on 05/25/17 21:45; Start 05/25/17 at 04:00 Sodium Chloride 1,000 ml @ 999 mls/hr BOLUS ONCE IV Last administered on 05/25 05:52; Start 05/25/17 at 05:45; Stop 05/25/17 at 06:45; Status DC Ondansetron HCl (Zofran Inj) 4 mg ONCE ONCE IV PUSH Last administered on 05:52; Start 05/25/17 at 05:45; Stop 05/25/17 at 05:46; Status DC Morphine Sulfate (Morphine Inj) 4 mg ONCE ONCE IV PUSH Last administered on 05:52; Start 05/25/17 at 05:45; Stop 05/25/17 at 05:46; Status DC Hydromorphone HCl (Dilaudid Pf Inj) 0.5 mg ONCE ONCE IV PUSH Last administered on 05/25/17 06:42; Start 05/25/17 at 06:45; Stop 05/25/17 at 06:46 ; Status DC Sodium Chloride (NS Flush) 2 ml BID IV FLUSH ; Start 05/25/17 at 09:00 Sodium Chloride (NS Flush) 2 ml UNSCH PRN IVF FLUSH AFTER USING IV ACCESS; Start 05/25/17 at 07:30 Ceftriaxone Sodium 1000 mg/ Sodium Chloride 100 ml @ 200 mls/hr ONCE ONCE IV Last administered on 05/25/17 07:48; Start 05/25/17 at 07:45; Stop 05/25/17 at 08:14; Status DC Ondansetron HCl (Zofran Inj) 4 mg ONCE ONCE IV PUSH Last administered on 08:07; Start 05/25/17 at 08:00; Stop 05/25/17 at 08:01; Status DC Hydromorphone HCl (Dilaudid Pf Inj) 1 mg ONCE ONCE IV PUSH Last administered on 05/25/17 08:07; Start 05/25/17 at 08:00; Stop 05/25/17 at 08:01; Status DC Sodium Chloride 250 ml @ 15 mls/hr ONCE ONCE IV Last administered on 08:45; Start 05/25/17 at 08:45; Stop 05/26/17 at 01:24; Status DC Ceftriaxone Sodium 1000 mg/ Sodium Chloride 100 ml @ 200 mls/hr Q24H IV Last administered on 05/26/17 08:36; Start 05/26/17 at 08:00 Sodium Chloride 1,000 ml @ 100 mls/hr Q10H IV ; Start 05/25/17 at 08:38 Sodium Chloride (NS Flush) 2 ml UNSCH PRN IV FLUSH FLUSH AFTER USING IV ACCESS ; Start 05/25/17 at 08:45; Stop 05/25/17 at 09:33; Status DC Sodium Chloride (NS Flush) 2 ml BID IV FLUSH ; Start 05/25/17 at 09:00; Stop 07/01 at 09:33; Status DC Acetaminophen (Tylenol) 650 mg Q4H PRN PO TEMP > 100.4; Start 05/25/17 at 08:45 Ondansetron HCl (Zofran Inj) 4 mg Q6H PRN IVP NAUSEA OR VOMITING; Start at 08:45 Acetaminophen/ Hydrocodone Bitart ([place] 5-325 Mg) 1 tab Q4H PRN PO PAIN SCALE 3 TO 5; Start 05/25/17 at 08:45; Stop 05/25/17 at 13:15; Status DC Acetaminophen/ Hydrocodone Bitart ([place] 10-325 Mg) 1 tab Q4H PRN PO PAIN SCALE 6 TO 10 Last administered on 05/25/17 09:40; Start 05/25/17 at 08:45; Stop 05/25/17 at 13:15; Status DC Naloxone HCl (Narcan Inj) 0.4 mg UNSCH PRN IV SEE LABEL COMMENTS; Start at 08:45 Senna/Docusate Sodium ([place]-Colace) 1 tab BID PO Last administered on 08:38; Start 05/25/17 at 10:00 Magnesium Hydroxide (Milk Of Magnesia Liq) 30 ml Q12H PRN PO MILD - MODERATE CONSTIPATION Last administered on 05/26/17 08:40; Start 05/25/17 at 08:45 Sennosides (Senokot) 17.2 mg Q12H PRN PO MODERATE - SEVERE CONSTIPATION; Start 05/25/17 at 08:45 Bisacodyl (Dulcolax Supp) 10 mg DAILY PRN RECTAL SEVERE CONSITIPATION; Start at 08:45 Lactulose (Lactulose Liq) 30 ml DAILY PRN PO SEVERE CONSITIPATION; Start at 08:45 Albuterol/ Ipratropium (Duoneb Neb) 1 ampule Q2HR NEB PRN NEB dyspnea; Start at 08:45 Dextrose (D50w (Vial) Inj) 50 ml UNSCH PRN IV HYPOGLYCEMIA-SEE COMMENTS; Start 05/25/17 at 08:45 Glucagon (Glucagon Inj) 1 mg UNSCH PRN OTHER HYPOGLYCEMIA-SEE COMMENTS; Start 05/25/17 at 08:45 Insulin Aspart (NovoLOG SUPPLEMENTAL SCALE) 1 ACHS SLIDING SCALE SQ Last administered on 05/25/17 11:27; Start 05/25/17 at 11:00 Hydromorphone HCl (Dilaudid Pf Inj) 1 mg Q4H PRN IV PUSH pain 4-10 Last administered on 05/26/17 06:15; Start 05/25/17 at 13:15 Oxycodone/ Acetaminophen (Percocet 10-325 Mg) 1 tab Q4H PRN PO pain 1-3 Last administered on 05/26/17 08:39; Start 05/25/17 at 13:15 Cyclobenzaprine HCl (Flexeril) 5 mg Q8HR PO Last administered on 05/26/17 05: 00; Start 05/25/17 at 14:00 Albuterol/ Ipratropium (Duoneb Neb) 1 ampule Q4HR WHILE AWAKE NEB NEB Last administered on 05/25/17 20:53; Start 05/25/17 at 16:00 Amlodipine Besylate (Norvasc) 2.5 mg DAILY PO Last administered on 05/26/17 08 :53; Start 05/25/17 at 13:30 Buspirone HCl (Buspar) 10 mg TID PO Last administered on 05/26/17 08:38; Start 05/25/17 at 18:00 Doxazosin Mesylate (Cardura) 4 mg HS PO Last administered on 05/25/17 21:39; Start 05/25/17 at 21:00 Gabapentin (Neurontin) 300 mg BID PO Last administered on 05/26/17 08:37; Start 05/25/17 at 13:30 Pravastatin Sodium (Pravachol) 40 mg DAILY PO Last administered on 05/26/17 08 :37; Start 05/26/17 at 09:00 Ferrous Sulfate (Ferrous Sulfate) 325 mg BID PO Last administered on 05/26/17 08:37; Start 05/25/17 at 21:00 Miscellaneous (Pill Splitter) 1 ea UNSCH PRN OTHER SEE LABEL COMMENTS; Start at 13:45 Ketorolac Tromethamine (Toradol Inj) 15 mg Q6HR IV PUSH Last administered on 05:00; Start 05/26/17 at 00:00; Stop 05/27/17 at 18:01 A/P Assessment and Plan 57-year-old male presented with mechanical fall with presented with Nondisplaced with mild compression of T1 vertebrae -Neurosurgeon following. -Per neurosurgeon continue conservative treatment with medications, therapy. -Continue cervical brace for T1 fracture -Mobilized out of bed with brace Gluteal myofascia pain secondary to trauma -Hip and femur x-ray was negative -Improved. At the moment no indication for IV pain medication. DC IV Dilaudid. Start Oramorph 15 mg by mouth twice a day will need to taper this off quickly. Continue Percocet when necessary for breakthrough pain. Continue with short course of Toradol. Continue Flexeril. -Patient really needs physical therapy but refused it today. Dealt with patient 's nurse and patient himself and stated that he cannot refuse physical therapy since this is part of his management. COPD/asthma -Patient is asymptomatic but does have wheezing on exam that improved with DuoNeb's. Continue with DuoNeb's. -At home he is on albuterol for this. -Smoking cessation. Chronic kidney disease -We do not have a baseline. Most likely due to polycystic kidney disease this is his baseline. -Cr mildly elevated today. Continue to monitor creatinine. Avoid nephrotoxins. Strict ins and outs. Anemia, symptomatic -Patient has a history of iron deficiency anemia secondary to polycystic kidney disease. No signs of active bleeding. -Initial Hemoglobin here 7.1 and repeat was 6.2 status post transfusion of 2 units of packed red blood cells with posttransfusion hemoglobin 8.6. Responded appropriately. Continue to trend hemoglobin. -Continue with ferrous sulfate. -Education given on compliance. Tobacco dependence -Encourage smoking cessation. Patient is already trying to quit. He declined any nicotine patch. Type 2 diabetes - glipizide held. -Continue with insulin sliding scale. Will adjust insulin based on Accu-Cheks. Polycystic kidney disease/polycystic liver disease/hyperlipidemia/hypertension/ anxiety -Continue home medication. DVT prophylaxis -Due to anemia will hold off on chemoprophylaxis. If hemoglobin is stable can start chemoprophylaxis. Encourage ambulation. SCDs/ALIRIO. Mary Ellen Benites MD May 26, 2017 10:44
[2017-05-26] MEDS ORDERED: oxyCODONE/ACETAMINOPHEN 5 MG/325 MG TAB PO PRN (10:45)
[2017-05-26] MEDS: DOXAZOSIN MESYLATE 4 MG TAB PO SCH (20:51)
[2017-05-26] MEDS: MORPHINE SULFATE 15 MG CONTROLLED RELEASE TAB PO SCH (20:52)
[2017-05-27] VITALS (12 sets, daily range): BP systolic 144–175; BP diastolic 72–89; PULSE 77–91; RESP 16–20; TEMP 96.4–97.8; O2SAT 92–96
[2017-05-27] MEDS: KETOROLAC TROMETHAMINE 30 MG/ML (IVP) VIAL IV PUSH SCH ×4 (01:02→18:19)
[2017-05-27] MEDS: oxyCODONE/ACETAMINOPHEN 10 MG/325 MG TAB PO PRN ×5 (05:21→22:57)
[2017-05-27] MEDS: CYCLOBENZAPRINE HCL 10 MG TAB PO SCH ×3 (05:22→22:53)
[2017-05-27] MEDS: INSULIN ASPART SUPPLEMENTAL SCALE SQ SCH ×4 (06:21→22:54)
[2017-05-27] MEDS: RESP: ALBUTEROL 2.5 MG/IPRATROPIUM 0.5 MG NEB (SCH) NEB ×4 (08:11→19:14)
[2017-05-27 08:57] LABS: MEAN CELL VOLUME 80.7 FL (80.0-100.0); MEAN CORPUSCULAR HEMOGLOBIN 26.2 PG (27.0-34.0); MEAN CORPUSCULAR HGB CONC 32.4 % (32.0-36.0); PLATELET COUNT 300 TH/MM3 (150-450); RED BLOOD COUNT 3.34 MIL/MM3 (4.50-5.90); RED CELL DISTRIBUTION WIDTH 16.8 % (11.6-17.2); REVIEW FLAG FINAL; WHITE BLOOD COUNT 5.6 TH/MM3 (4.0-11.0)
[2017-05-27] MEDS: DOCUSATE SODIUM 50 MG/SENNA 8.6 MG TAB PO SCH ×2 (09:11→22:54)
[2017-05-27] MEDS: SODIUM CHLORIDE 0.9% FLUSH 10 ML FLUSH IV FLUSH SCH ×2 (09:11→22:54)
[2017-05-27] MEDS: GABAPENTIN 300 MG CAP PO SCH ×2 (09:11→22:53)
[2017-05-27] MEDS: cefTRIAXone INJ 1,000 MG in SODIUM CHLORIDE 0.9% INJ 100 ML IV SCH (09:11)
[2017-05-27] MEDS: amLODIPine BESYLATE 5 MG TAB PO SCH (09:12)
[2017-05-27] MEDS: FERROUS SULFATE 325 MG (65 MG ELEMENTAL IRON) TAB PO SCH ×2 (09:12→22:54)
[2017-05-27] MEDS: busPIRone HCL 10 MG TAB PO SCH ×3 (09:12→18:19)
[2017-05-27] MEDS: PRAVASTATIN SOD 40 MG TAB PO SCH (09:12)
[2017-05-27] MEDS: MORPHINE SULFATE 15 MG CONTROLLED RELEASE TAB PO SCH ×2 (09:13→22:54)
[2017-05-27 09:20] LABS: BICARBONATE 28.6 MEQ/L (21.0-32.0)
--- NOTE | 2017-05-27 14:49 | HHI.PR ---
Subjective Remarks f/u for T1 nondisplaced fracture and gluteal pain patient seen sitting in chair talking to someone on his cell phone. He was very comfortable and showed no signs of pain. When he hung up he started to moan and stated he was in pain on his left side of his leg. Denied any LE weakness. Denied any fecal or urinary incontinence. I told patient that based on what I saw from PT he will need to go to rehab. Patient stated he will not go and that he can walk with a walker. He stated last night he was walking back and front to the bathroom by himself. he felt like he might of over did it. Patient stated that he will no go home and that his mom can take care of him. Patient then jump out of his chair in front of his walker very stable. When I told patient that he cannot walk/stand alone without any assistance and that he needs to sit down. Patient refused tried to move forward but I stopped him again because he had IV and oxygen on. Then he looked to his left and slowly fell on his left side on his hand. I witnessed this and he did not hit his head. The motions were very slow and looked intentional. I told nurse and multiple personal were present including PT. patient then stated that his leg no longer hurt and that he felt better after that fall. Patient denied any weakness. Denied any VALENCIA, visual changes, N/V, or any changes or worsening of symptoms. Objective Vitals Vital Signs Date Time Temp Pulse Resp B/P (MAP) Pulse Ox O2 Delivery O2 Flow Rate FiO2 05/27/17 10:50 97.3 81 16 158/72 (100) 94 05/27/17 08:13 93 Nasal Cannula 2.00 05/27/17 08:00 96.4 80 20 175/89 (117) 94 05/27/17 00:40 96.9 77 18 144/72 (96) 94 05/26/17 20:00 96.8 88 21 165/90 (115) 94 05/26/17 16:00 96.8 85 17 158/76 (103) 94 05/26/17 15:17 92 Nasal Cannula 2.00 I/O 05/26/17 05/26/17 05/26/17 05/27/17 05/27/17 05/27/17 07:00 15:00 23:00 07:00 15:00 23:00 Intake Total 240 ml 1931 ml 360 ml 240 ml Output Total 700 ml 1200 ml 450 ml Balance -460 ml 731 ml -90 ml 240 ml Intake Oral 240 ml 700 ml 360 ml 240 ml IV Total 1231 ml Output Urine Total 700 ml 1200 ml 450 ml # Voids 2 # Bowel Movements 0 0 0 0 Result Diagram: 05/27/1771905/27/17719 Objective Remarks GENERAL: This is a well-nourished, well-developed patient, in a c-collar in place NECK: Trachea midline. No JVD or lymphadenopathy. Supple, nontender, no meningeal signs. CARDIOVASCULAR: Regular rate and rhythm without murmurs, gallops, or rubs. RESPIRATORY: CTA B/L GASTROINTESTINAL: Abdomen soft, non-tender, nondistended. No hepato-splenomegaly , or palpable masses. No guarding. Reducible umbilical hernia noted. MUSCULOSKELETAL:B/L lower extremity full range of motion. Tenderness palpation in the left gluteal area. NEUROLOGICAL: Awake and alert. Cranial nerves II through XII intact. Motor and sensory grossly within normal limits. Five out of 5 muscle strength in all muscle groups. Normal speech. Medications and IVs Current Medications Morphine Sulfate (Morphine Inj) 2 mg ONCE ONCE IV Last administered on 05:04; Start 05/25/17 at 04:00; Stop 05/25/17 at 04:01; Status DC Ondansetron HCl (Zofran Inj) 4 mg ONCE ONCE IVP Last administered on 05:04; Start 05/25/17 at 04:00; Stop 05/25/17 at 04:01; Status DC Sodium Chloride (NS Flush) 2 ml UNSCH PRN IVF FLUSH AFTER USING IV ACCESS; Start 05/25/17 at 04:00; Stop 05/25/17 at 09:34; Status DC Sodium Chloride 1,000 ml @ 100 mls/hr Q10H IV Last administered on 05/25/17 21:45; Start 05/25/17 at 04:00; Stop 05/26/17 at 10:43; Status DC Sodium Chloride 1,000 ml @ 999 mls/hr BOLUS ONCE IV Last administered on 05/25 05:52; Start 05/25/17 at 05:45; Stop 05/25/17 at 06:45; Status DC Ondansetron HCl (Zofran Inj) 4 mg ONCE ONCE IV PUSH Last administered on 05:52; Start 05/25/17 at 05:45; Stop 05/25/17 at 05:46; Status DC Morphine Sulfate (Morphine Inj) 4 mg ONCE ONCE IV PUSH Last administered on 05:52; Start 05/25/17 at 05:45; Stop 05/25/17 at 05:46; Status DC Hydromorphone HCl (Dilaudid Pf Inj) 0.5 mg ONCE ONCE IV PUSH Last administered on 05/25/17 06:42; Start 05/25/17 at 06:45; Stop 05/25/17 at 06:46 ; Status DC Sodium Chloride (NS Flush) 2 ml BID IV FLUSH Last administered on 05/27/17 09: 11; Start 05/25/17 at 09:00 Sodium Chloride (NS Flush) 2 ml UNSCH PRN IVF FLUSH AFTER USING IV ACCESS; Start 05/25/17 at 07:30 Ceftriaxone Sodium 1000 mg/ Sodium Chloride 100 ml @ 200 mls/hr ONCE ONCE IV Last administered on 05/25/17 07:48; Start 05/25/17 at 07:45; Stop 05/25/17 at 08:14; Status DC Ondansetron HCl (Zofran Inj) 4 mg ONCE ONCE IV PUSH Last administered on 08:07; Start 05/25/17 at 08:00; Stop 05/25/17 at 08:01; Status DC Hydromorphone HCl (Dilaudid Pf Inj) 1 mg ONCE ONCE IV PUSH Last administered on 05/25/17 08:07; Start 05/25/17 at 08:00; Stop 05/25/17 at 08:01; Status DC Sodium Chloride 250 ml @ 15 mls/hr ONCE ONCE IV Last administered on 08:45; Start 05/25/17 at 08:45; Stop 05/26/17 at 01:24; Status DC Ceftriaxone Sodium 1000 mg/ Sodium Chloride 100 ml @ 200 mls/hr Q24H IV Last administered on 05/27/17 09:11; Start 05/26/17 at 08:00 Sodium Chloride 1,000 ml @ 100 mls/hr Q10H IV ; Start 05/25/17 at 08:38; Stop 05/26/17 at 10:43; Status DC Sodium Chloride (NS Flush) 2 ml UNSCH PRN IV FLUSH FLUSH AFTER USING IV ACCESS ; Start 05/25/17 at 08:45; Stop 05/25/17 at 09:33; Status DC Sodium Chloride (NS Flush) 2 ml BID IV FLUSH ; Start 05/25/17 at 09:00; Stop 07/01 at 09:33; Status DC Acetaminophen (Tylenol) 650 mg Q4H PRN PO TEMP > 100.4; Start 05/25/17 at 08:45 Ondansetron HCl (Zofran Inj) 4 mg Q6H PRN IVP NAUSEA OR VOMITING; Start at 08:45 Acetaminophen/ Hydrocodone Bitart ([place] 5-325 Mg) 1 tab Q4H PRN PO PAIN SCALE 3 TO 5; Start 05/25/17 at 08:45; Stop 05/25/17 at 13:15; Status DC Acetaminophen/ Hydrocodone Bitart ([place] 10-325 Mg) 1 tab Q4H PRN PO PAIN SCALE 6 TO 10 Last administered on 05/25/17 09:40; Start 05/25/17 at 08:45; Stop 05/25/17 at 13:15; Status DC Naloxone HCl (Narcan Inj) 0.4 mg UNSCH PRN IV SEE LABEL COMMENTS; Start at 08:45 Senna/Docusate Sodium ([place]-Colace) 1 tab BID PO Last administered on 09:11; Start 05/25/17 at 10:00 Magnesium Hydroxide (Milk Of Magnesia Liq) 30 ml Q12H PRN PO MILD - MODERATE CONSTIPATION Last administered on 05/26/17 20:51; Start 05/25/17 at 08:45 Sennosides (Senokot) 17.2 mg Q12H PRN PO MODERATE - SEVERE CONSTIPATION; Start 05/25/17 at 08:45 Bisacodyl (Dulcolax Supp) 10 mg DAILY PRN RECTAL SEVERE CONSITIPATION; Start at 08:45 Lactulose (Lactulose Liq) 30 ml DAILY PRN PO SEVERE CONSITIPATION; Start at 08:45 Albuterol/ Ipratropium (Duoneb Neb) 1 ampule Q2HR NEB PRN NEB dyspnea; Start at 08:45 Dextrose (D50w (Vial) Inj) 50 ml UNSCH PRN IV HYPOGLYCEMIA-SEE COMMENTS; Start 05/25/17 at 08:45 Glucagon (Glucagon Inj) 1 mg UNSCH PRN OTHER HYPOGLYCEMIA-SEE COMMENTS; Start 05/25/17 at 08:45 Insulin Aspart (NovoLOG SUPPLEMENTAL SCALE) 1 ACHS SLIDING SCALE SQ Last administered on 05/27/17 11:36; Start 05/25/17 at 11:00 Hydromorphone HCl (Dilaudid Pf Inj) 1 mg Q4H PRN IV PUSH pain 4-10 Last administered on 05/26/17 06:15; Start 05/25/17 at 13:15; Stop 05/26/17 at 10:43 ; Status DC Oxycodone/ Acetaminophen (Percocet 10-325 Mg) 1 tab Q4H PRN PO pain 8-10 Last administered on 05/27/17 14:03; Start 05/25/17 at 13:15 Cyclobenzaprine HCl (Flexeril) 5 mg Q8HR PO Last administered on 05/27/17 14: 03; Start 05/25/17 at 14:00 Albuterol/ Ipratropium (Duoneb Neb) 1 ampule Q4HR WHILE AWAKE NEB NEB Last administered on 05/27/17 11:53; Start 05/25/17 at 16:00 Amlodipine Besylate (Norvasc) 2.5 mg DAILY PO Last administered on 05/27/17 09 :12; Start 05/25/17 at 13:30 Buspirone HCl (Buspar) 10 mg TID PO Last administered on 05/27/17 11:38; Start 05/25/17 at 18:00 Doxazosin Mesylate (Cardura) 4 mg HS PO Last administered on 05/26/17 20:51; Start 05/25/17 at 21:00 Gabapentin (Neurontin) 300 mg BID PO Last administered on 05/27/17 09:11; Start 05/25/17 at 13:30 Pravastatin Sodium (Pravachol) 40 mg DAILY PO Last administered on 05/27/17 09 :12; Start 05/26/17 at 09:00 Ferrous Sulfate (Ferrous Sulfate) 325 mg BID PO Last administered on 05/27/17 09:12; Start 05/25/17 at 21:00 Miscellaneous (Pill Splitter) 1 ea UNSCH PRN OTHER SEE LABEL COMMENTS; Start at 13:45 Ketorolac Tromethamine (Toradol Inj) 15 mg Q6HR IV PUSH Last administered on 11:37; Start 05/26/17 at 00:00; Stop 05/27/17 at 18:01 Oxycodone/ Acetaminophen (Percocet 5-325 Mg) 1 tab Q4H PRN PO pain 1-7; Start 05/26/17 at 10:45 Morphine Sulfate (Oramorph Sr) 15 mg Q12HR PO Last administered on 05/27/17 09 :13; Start 05/26/17 at 21:00 A/P Assessment and Plan 57-year-old male presented with mechanical fall with presented with Nondisplaced with mild compression of T1 vertebrae -Neurosurgeon following. -Per neurosurgeon continue conservative treatment with medications, therapy. -Continue cervical brace for T1 fracture -Mobilized out of bed with brace Gluteal myofascia pain secondary to trauma -Hip and femur x-ray was negative -Improved. DC IV Dilaudid no indication. on Oramorph 15 mg by mouth twice a day will need to taper this off quickly. Continue Percocet when necessary for breakthrough pain. Continue with short course of Toradol. Continue Flexeril. This regimen is working so I would not escalate pain medication. Pain will improve with therapy. -per PT patient needs to be placed in SNF. Fall on 05/27 while hospitalized -patient was told not to get up without any assistance, but refused to listen and got up on his own which resulted in a fall. Due to noncompliance Fall witness by me and looked intentional. nurse aware and protocol is being followed. COPD/asthma -on duonebs. -At home he is on albuterol for this. -Smoking cessation. Chronic kidney disease -We do not have a baseline, but this is most likely his baseline. Most likely due to polycystic kidney disease. -Continue to monitor creatinine. Avoid nephrotoxins. Strict ins and outs. Anemia, symptomatic -Patient has a history of iron deficiency anemia secondary to polycystic kidney disease and is noncompliant with treatment.. No signs of active bleeding. -Initial Hemoglobin here 7.1 and repeat was 6.2 status post transfusion of 2 units of packed red blood cells with posttransfusion hemoglobin 8.6. Responded appropriately. H/H remains stable. -Continue with ferrous sulfate. -Education given on compliance. Tobacco dependence -Encourage smoking cessation. Patient is already trying to quit. He declined any nicotine patch. Type 2 diabetes - glipizide held. -Continue with insulin sliding scale. Will adjust insulin based on Accu-Cheks. Polycystic kidney disease/polycystic liver disease/hyperlipidemia/hypertension/ anxiety -Continue home medication. DVT prophylaxis - SCDs/ALIRIO. Discharge Planning patient medically stable for discharge to SNF. d/w case management, his nurse and charge nurse. Mary Ellen Benites MD May 27, 2017 14:49
--- NOTE | 2017-05-27 15:32 | HHI.NSPN ---
(Vamsi Pino) History Chief Complaint: Numbness to the leftcalf. (Vamsi Pino) Interval History 05/25: 57-year-old male was helping his mother down some stairs on Friday morning 06/03/17 when they both fell. He had immediate onset of back and left hip and groin pain. He went to bed last evening and the pain continued to increase. He was brought to the emergency room per EMS today. His initial x- rays revealed a T1 nondisplaced fracture. He complains of neck pain as well as rather severe left lateral hip pain with radiation to the left lateral hip and thigh. He complains of mild numbness in the left anterior thigh. No bowel or bladder dysfunction. He does have a history of chronic back pain. States he has had abnormalities at the L4-5 level. Has had previous episodes of sciatica. 05/26: Patient is asleep but awakens to verbal stimulation. He is alert and interactive after that. His major complaint is pain to the left hip and thigh which causes him not to be able to get up. He does state he has some pain to the upper back/lower neck. He has the [place] cervical collar in place but the front half is off. 05/27: The patient is doing well this afternoon. He is sitting up in a chair with a lumbar support in place. He complains of numbness to the left calf and weakness to the left foot. (Vamsi Pino) System Review Comments Constitutional: Patient denies any fever or chills. HEENT: Patient denies any visual or hearing difficulty. Respiratory: Patient denies any shortness of breath or productive cough. Cardiovascular: Patient denies any chest pain, palpitations or irregular heartbeat. Gastrointestinal: Patient denies any abdominal pain, nausea, vomiting or incontinence of stool. Genitourinary: Patient denies any incontinence of urine. Musculoskeletal: Patient endorses some low back pain. He denies any pain to the neck or extremities. Neurologic: Patient complains of numbness to the left calf and weakness to the left foot. He denies any headache, dizziness or tingling. (Vamsi Pino) Exam Results 05/25/17 05/25/17 05/26/17 05/26/17 05/27/17 05/27/17 05:59 17:59 05:59 17:59 05:59 17:59 Intake Total 1000 ml 980 ml 1931 ml 360 ml 240 ml Output Total 600 ml 700 ml 1200 ml 450 ml Balance 400 ml 280 ml 731 ml -90 ml 240 ml Intake Oral 480 ml 700 ml 360 ml 240 ml IV Total 1000 ml 1231 ml Packed Cells 500 ml Output Urine Total 600 ml 700 ml 1200 ml 450 ml # Voids 2 1 2 # Bowel Movements 0 0 0 0 Vital Signs Date Time Temp Pulse Resp B/P (MAP) Pulse Ox O2 Delivery O2 Flow Rate FiO2 05/27/17 12:00 97.2 80 18 160/75 (103) 95 05/27/17 10:50 97.3 81 16 158/72 (100) 94 05/27/17 08:13 93 Nasal Cannula 2.00 05/27/17 08:00 96.4 80 20 175/89 (117) 94 05/27/17 00:40 96.9 77 18 144/72 (96) 94 05/26/17 20:00 96.8 88 21 165/90 (115) 94 05/26/17 16:00 96.8 85 17 158/76 (103) 94 05/26/17 15:17 92 Nasal Cannula 2.00 05/26/17 08:00 96.8 85 18 156/100 (118) 92 05/26/17 07:59 Nasal Cannula 2.00 05/26/17 06:02 92 Nasal Cannula 2.00 05/26/17 04:15 96.9 73 21 128/73 (91) 92 05/26/17 00:30 96.7 76 19 138/75 (96) 94 05/25/17 21:14 96.7 78 19 161/77 92 05/25/17 20:57 93 Nasal Cannula 2.00 05/25/17 18:46 97.5 80 19 161/80 93 05/25/17 18:29 97.7 82 20 161/77 93 05/25/17 16:07 97.1 86 18 160/71 92 05/25/17 16:00 97.2 82 20 161/77 (105) 93 05/25/17 15:47 97.2 82 20 161/77 93 05/25/17 15:47 97.2 82 20 161/72 93 05/25/17 12:00 96.8 85 19 159/76 (103) 93 05/25/17 09:45 97.8 89 20 152/85 (107) 92 05/25/17 07:49 90 16 169/85 (113) 94 Room Air 05/25/17 06:29 88 18 167/84 (111) 95 Room Air 05/25/17 06:16 98 18 162/71 (101) 96 Room Air 05/25/17 06:16 18 05/25/17 05:53 Room Air 05/25/17 05:29 20 05/25/17 04:08 20 96 Room Air 05/25/17 04:08 96 Room Air 05/25/17 03:47 98.7 100 20 154/58 (90) 96 (Vamsi Pino) Physical Examination GENERAL: Patient awake & alert and readily interacts. Affect essentially normal. No distress apparent. SKIN: Warm, dry & intact w/o any rashes, ulceration or other lesions noted. HEENT: Normocephalic, atraumatic. NECK: [place] J cervical collar in place, NTTP at the cervicothoracic junction and midline cervical spine, no JVD, trachea midline. MUSCULOSKELETAL: TTP over the left sciatic notch greater than left mid gluteal musculature. Mild to moderate left lateral hip-trochanteric bursa tenderness. Positive edema and tenderness with some chronic deformity in the right wrist and thumb. NEUROLOGICAL: AAOx3. Speech clear & appropriate. Follow simple commands well. Sensation intact to light touch BUE & RLE, decreased sensation to left calf otherwise LLE normal. Tibialis anterior 3+/5 right and 4/5 left otherwise normal to bilateral lower extremities & upper extremities. (Vamsi Pino) Lab, Micro, Other Results Recent Impressions Femur X-Ray 05/25/17 9215 Signed Impressions: Service Date/Time: Thursday, May 25, 2017 14:32 - CONCLUSION: No acute disease. Charanjit Orr MD Lumbar Spine X-Ray 05/25/17 8691 Signed Impressions: Service Date/Time: Thursday, May 25, 2017 04:30 - CONCLUSION: Chronic appearing findings as above. No fracture or acute-appearing malalignment demonstrated of the lumbar spine. Mario Moreno MD Chest X-Ray 05/25/17 0351 Signed Impressions: Service Date/Time: Thursday, May 25, 2017 04:31 - CONCLUSION: No evidence of acute cardiopulmonary disease. Mario Moreno MD Cervical Spine CT 05/25/17 0351 Signed Impressions: Service Date/Time: Thursday, May 25, 2017 04:11 - CONCLUSION: 1. Nondisplaced fracture with mild compression deformity of T1 vertebral body, probably acute. No epidural hematoma or retropulsed fracture fragments. 2. Other findings appear chronic and please see above. Mario Moreno MD Wrist X-Ray 05/25/17 0000 Signed Impressions: Service Date/Time: Thursday, May 25, 2017 04:33 - CONCLUSION: 1. There is soft tissue swelling but I don't see an acute fracture or subluxation of the right wrist. 2. Chronic appearing destruction of the lunate and scaphoid, nonspecific but possibly related to old trauma or chronic arthropathy. Mario Moreno MD Hip and Pelvis X-Ray 05/25/17 0000 Signed Impressions: Service Date/Time: Thursday, May 25, 2017 04:22 - CONCLUSION: Pelvis and left hip are intact. Mario Moreno MD Abdomen/Pelvis CT 05/25/17 0000 Signed Impressions: Service Date/Time: Thursday, May 25, 2017 05:55 - CONCLUSION: 1. No visceral organ injury, fracture or other acute abnormality. 2. Degenerative changes of the lumbar spine, both hips and the pubic symphysis. There is considerable end plate irregularity at L4/L5, presumably reactive/degenerative but chronic discitis or the sequela of previous discitis could have a similar appearance. 3. Findings related to polycystic kidney disease with innumerable variable sized cysts throughout the liver and both kidneys noted. 4. Scattered sub-5 mm nonobstructing stones in both kidneys. 5. Nonspecific hepatosplenomegaly. Mario Moreno MD Laboratory Tests Test 05/25/17 04:29 05/25/17 05:16 05/25/17 05:36 05/25/17 14:24 White Blood Count 6.0 TH/MM3 Red Blood Count 2.88 MIL/MM3 Hemoglobin 7.1 GM/DL Hematocrit 22.3 % Mean Corpuscular Volume 77.3 FL Mean Corpuscular Hemoglobin 24.7 PG Mean Corpuscular Hemoglobin Concent 32.0 % Red Cell Distribution Width 15.7 % Platelet Count 420 TH/MM3 Mean Platelet Volume 6.3 FL Neutrophils (%) (Auto) 75.9 % Lymphocytes (%) (Auto) 12.0 % Monocytes (%) (Auto) 7.2 % Eosinophils (%) (Auto) 4.3 % Basophils (%) (Auto) 0.6 % Neutrophils # (Auto) 4.6 TH/MM3 Lymphocytes # (Auto) 0.7 TH/MM3 Monocytes # (Auto) 0.4 TH/MM3 Eosinophils # (Auto) 0.3 TH/MM3 Basophils # (Auto) 0.0 TH/MM3 CBC Comment AUTO DIFF Differential Comment AUTO DIFF CONFIRMED Ovalocytes 1+ Prothrombin Time 11.2 SEC Prothromb Time International Ratio 1.0 RATIO Activated Partial Thromboplast Time 29.0 SEC Blood Urea Nitrogen 45 MG/DL Creatinine 2.60 MG/DL Random Glucose 147 MG/DL Calcium Level 7.8 MG/DL Sodium Level 135 MEQ/L Potassium Level 4.1 MEQ/L Chloride Level 98 MEQ/L Carbon Dioxide Level 29.9 MEQ/L Anion Gap 7 MEQ/L Estimat Glomerular Filtration Rate 26 ML/MIN Magnesium Level 1.8 MG/DL Ethyl Alcohol Level LESS THAN 3 MG/DL Urine Color YELLOW Urine Turbidity HAZY Urine pH 7.0 Urine Specific [place] 1.011 Urine Protein 30 mg/dL Urine Glucose (UA) NEG mg/dL Urine Ketones NEG mg/dL Urine Occult Blood LARGE Urine Nitrite NEG Urine Bilirubin NEG Urine Leukocyte Esterase SMALL Urine RBC 4-9 /hpf Urine WBC 50-99 /hpf Urine WBC Clumps FEW Urine Squamous Epithelial Cells 0-5 /hpf Microscopic Urinalysis Comment CULTURE INDICATED Total Bilirubin 0.2 MG/DL Direct Bilirubin 0.1 MG/DL Indirect Bilirubin 0.1 MG/DL Aspartate Amino Transf (AST/SGOT) 32 U/L Alanine Aminotransferase (ALT/SGPT) 19 U/L Alkaline Phosphatase 117 U/L Total Protein 7.4 GM/DL Albumin 2.2 GM/DL Reticulocyte Count 1.6 % Absolute Reticulocyte Count 38.3 MIL/L Test 05/25/17 14:35 05/26/17 04:57 05/27/17 07:20 Hemoglobin 6.2 GM/DL 8.6 GM/DL 8.7 GM/DL White Blood Count 6.2 TH/MM3 5.6 TH/MM3 Red Blood Count 3.27 MIL/MM3 3.34 MIL/MM3 Hematocrit 26.4 % 27.0 % Mean Corpuscular Volume 80.6 FL 80.7 FL Mean Corpuscular Hemoglobin 26.1 PG 26.2 PG Mean Corpuscular Hemoglobin Concent 32.4 % 32.4 % Red Cell Distribution Width 16.5 % 16.8 % Platelet Count 308 TH/MM3 300 TH/MM3 Mean Platelet Volume 6.1 FL 6.2 FL Neutrophils (%) (Auto) 62.7 % Lymphocytes (%) (Auto) 21.1 % Monocytes (%) (Auto) 8.8 % Eosinophils (%) (Auto) 6.8 % Basophils (%) (Auto) 0.6 % Neutrophils # (Auto) 3.9 TH/MM3 Lymphocytes # (Auto) 1.3 TH/MM3 Monocytes # (Auto) 0.5 TH/MM3 Eosinophils # (Auto) 0.4 TH/MM3 Basophils # (Auto) 0.0 TH/MM3 CBC Comment DIFF FINAL Differential Comment Haptoglobin 341 MG/DL Blood Urea Nitrogen 50 MG/DL 58 MG/DL Creatinine 2.73 MG/DL 2.96 MG/DL Random Glucose 76 MG/DL 79 MG/DL Calcium Level 8.2 MG/DL 7.5 MG/DL Sodium Level 137 MEQ/L 138 MEQ/L Potassium Level 5.0 MEQ/L 5.0 MEQ/L Chloride Level 104 MEQ/L 103 MEQ/L Carbon Dioxide Level 27.3 MEQ/L 28.6 MEQ/L Anion Gap 6 MEQ/L 6 MEQ/L Estimat Glomerular Filtration Rate 24 ML/MIN 22 ML/MIN Iron Level 27 MCG/DL Total Iron Binding Capacity 267 MCG/DL Percent Iron Saturation 10.1 % Ferritin 154 NG/ML Lactate Dehydrogenase 196 U/L Vitamin B12 Level 511 PG/ML Folate 11.1 NG/ML (Vamsi Pino) Medical Decision Making Impression and Plan Impression: 1. Mild T1 compression fracture without significant retropulsion. 2. Significant cervical spondylosis and degenerative disc disease with question of previous discitis 3. L4 5 severe degenerative changes with question of previous discitis. 4. Probable chronic left L5 radiculopathy with motor deficit 5. Left gluteal myofascial injury. Probable mild left sciatic nerve contusion. Patient with improved LLE pain, increased numbness left calf, otherwise neurological exam stable. Plan: Short course of Toradol [place] cervical collar Out of bed with assistance PT eval and treat (Vamsi Pino) Attending Statement I have personally seen and examined the patient on 05/27/17. Pertinent documentation and study results have been reviewed by the undersigned. I have personally developed the treatment plan and performed medical decision making. Agree with findings, exam, and treatment plan as noted above. Patient remains with significant left gluteal pain. Probable chronic left L5 motor deficit with tibialis anterior weakness. No significant cervical thoracic pain. Continue cervical collar Continue physical therapy for gluteal pain. (Marko Hill MD) Vamsi Pino May 27, 2017 15:32 Marko Hill MD May 28, 2017 20:47
[2017-05-27] MEDS: DOXAZOSIN MESYLATE 4 MG TAB PO SCH (22:54)
[2017-05-28] VITALS (7 sets, daily range): BP systolic 131–173; BP diastolic 64–96; PULSE 79–110; RESP 19–21; TEMP 97.1–98.5; O2SAT 90–95
[2017-05-28] MEDS: oxyCODONE/ACETAMINOPHEN 10 MG/325 MG TAB PO PRN ×4 (03:40→22:57)
[2017-05-28] MEDS: CYCLOBENZAPRINE HCL 10 MG TAB PO SCH ×3 (05:45→22:56)
[2017-05-28] MEDS: INSULIN ASPART SUPPLEMENTAL SCALE SQ SCH ×4 (08:00→22:57)
[2017-05-28] MEDS: RESP: ALBUTEROL 2.5 MG/IPRATROPIUM 0.5 MG NEB (SCH) NEB ×4 (08:02→20:17)
[2017-05-28] MEDS: PRAVASTATIN SOD 40 MG TAB PO SCH (09:33)
[2017-05-28] MEDS: cefTRIAXone INJ 1,000 MG in SODIUM CHLORIDE 0.9% INJ 100 ML IV SCH (09:33)
[2017-05-28] MEDS: SODIUM CHLORIDE 0.9% FLUSH 10 ML FLUSH IV FLUSH SCH ×2 (09:33→22:56)
[2017-05-28] MEDS: MORPHINE SULFATE 15 MG CONTROLLED RELEASE TAB PO SCH ×2 (09:33→22:56)
[2017-05-28] MEDS: GABAPENTIN 300 MG CAP PO SCH ×2 (09:34→22:56)
[2017-05-28] MEDS: DOCUSATE SODIUM 50 MG/SENNA 8.6 MG TAB PO SCH ×2 (09:34→22:55)
[2017-05-28] MEDS: amLODIPine BESYLATE 5 MG TAB PO SCH (09:34)
[2017-05-28] MEDS: busPIRone HCL 10 MG TAB PO SCH ×3 (09:34→18:53)
[2017-05-28] MEDS: FERROUS SULFATE 325 MG (65 MG ELEMENTAL IRON) TAB PO SCH ×2 (09:34→22:56)
[2017-05-28 09:51] LABS: HEMATOCRIT 23.6 % (39.0-51.0); MEAN CELL VOLUME 81.3 FL (80.0-100.0); MEAN CORPUSCULAR HEMOGLOBIN 26.6 PG (27.0-34.0); MEAN CORPUSCULAR HGB CONC 32.8 % (32.0-36.0); PLATELET COUNT 272 TH/MM3 (150-450); RED CELL DISTRIBUTION WIDTH 17.5 % (11.6-17.2); REVIEW FLAG FINAL; WHITE BLOOD COUNT 8.8 TH/MM3 (4.0-11.0)
[2017-05-28 10:14] LABS: BICARBONATE 28.2 MEQ/L (21.0-32.0); POTASSIUM 5.2 MEQ/L (3.5-5.1)
--- NOTE | 2017-05-28 15:29 | HHI.PR ---
Subjective Remarks Better pain control. Patient reports today that he is preferring to discharge to home rather than a group home facility. He is still not stable on his feet. Objective Vital Signs Date Time Temp Pulse Resp B/P (MAP) Pulse Ox O2 Delivery O2 Flow Rate FiO2 05/28/17 11:24 90 Nasal Cannula 2.00 05/28/17 10:50 97.4 79 19 131/67 (88) 92 05/28/17 06:50 97.8 110 21 154/95 (114) 93 05/28/17 02:50 98.5 92 20 173/96 (121) 93 05/27/17 22:50 97.6 88 19 163/78 (106) 95 05/27/17 18:50 97.4 84 18 158/80 (106) 95 05/27/17 16:00 97.0 91 18 159/84 (109) 96 05/27/17 15:45 95 Nasal Cannula 2.00 I/O 05/27/17 05/27/17 05/27/17 05/28/17 05/28/17 05/28/17 07:00 15:00 23:00 07:00 15:00 23:00 Intake Total 240 ml 240 ml 240 ml Output Total 300 ml 650 ml 350 ml Balance 240 ml -60 ml -410 ml -350 ml Intake Oral 240 ml 240 ml 240 ml Output Urine Total 300 ml 650 ml 350 ml # Voids 2 # Bowel Movements 0 0 0 Result Diagram: 05/28/1790805/28/17 0909 Objective Remarks GENERAL: NAD, A&Ox3 HEAD: Normocephalic. NECK: Supple, trachea midline. No lymphadenopathy. EYES: No scleral icterus. No injection or drainage. CARDIOVASCULAR: Regular rate and rhythm without murmurs, gallops, or rubs. RESPIRATORY: Breath sounds equal bilaterally. No accessory muscle use. GASTROINTESTINAL: Abdomen soft, non-tender, nondistended. MUSCULOSKELETAL: No cyanosis, or edema. Patient is wearing an orthopedic collar SKIN: Warm and dry. NEURO: No focal neurological deficitis. A/P Problem List: (1) T1 vertebral fracture ICD Code: S22.019A - Unspecified fracture of first thoracic vertebra, initial encounter for closed fracture Status: Acute (2) Intractable pain ICD Code: R52 - Pain, unspecified Status: Acute (3) Acute kidney injury ICD Code: N17.9 - Acute kidney failure, unspecified Status: Acute Assessment and Plan Assessment and Plan 57-year-old male admitted after having mechanical fall with a T1 fracture Nondisplaced with mild compression of T1 vertebrae Conservative therapy Neurosurgery following Continue cervical brace PT Gluteal myofascia pain secondary to trauma Improving Continue as needed pain treatments Continue muscle relaxers Physical therapy Patient's preferences discharge to home Will need improved ambulation prior to home discharge COPD Asthma Continue duo nebs Continue albuterol as needed Recommended smoking cessation Chronic kidney disease Polycystic kidney disease Avoid nephrotoxins Follow renal function Anemia History of iron deficiency anemia Follow H&H Continue ferrous sulfate Tobacco dependence Smoking cessation recommended Diabetes mellitus type 2 Follow blood sugars Insulin sliding scale Diabetic diet polycystic liver disease hyperlipidemia hypertension anxiety Continue baseline treatments Follows in outpatient DVT prophylaxis SCDs Discharge Planning Plan for discharge to home once patient is stable William Walsh MD May 28, 2017 15:29
--- NOTE | 2017-05-28 16:49 | HHI.NSPN ---
(Vamsi Pino) History Chief Complaint: Weakness to the knees and right wrist, chronic since surgery. (Vamsi Pino) Interval History 05/25: 57-year-old male was helping his mother down some stairs on Friday morning 06/03/17 when they both fell. He had immediate onset of back and left hip and groin pain. He went to bed last evening and the pain continued to increase. He was brought to the emergency room per EMS today. His initial x- rays revealed a T1 nondisplaced fracture. He complains of neck pain as well as rather severe left lateral hip pain with radiation to the left lateral hip and thigh. He complains of mild numbness in the left anterior thigh. No bowel or bladder dysfunction. He does have a history of chronic back pain. States he has had abnormalities at the L4-5 level. Has had previous episodes of sciatica. 05/26: Patient is asleep but awakens to verbal stimulation. He is alert and interactive after that. His major complaint is pain to the left hip and thigh which causes him not to be able to get up. He does state he has some pain to the upper back/lower neck. He has the [place] J cervical collar in place but the front half is off. 05/27: The patient is doing well this afternoon. He is sitting up in a chair with a lumbar support in place. He complains of numbness to the left calf and weakness to the left foot. 05/28: This afternoon the patient is sitting in the chair doing a breathing treatment when seen. He does have the [employer] J cervical collar and a lumbar brace in place. He states that he has weakness to both knees and the right wrist after surgery which is chronic. (Vamsi Pino) System Review Comments Constitutional: Patient denies any fever or chills. HEENT: Patient denies any visual or hearing difficulty. Respiratory: Patient denies any shortness of breath or productive cough. Cardiovascular: Patient denies any chest pain, palpitations or irregular heartbeat. Gastrointestinal: Patient denies any abdominal pain, nausea, vomiting or incontinence of stool. Genitourinary: Patient denies any incontinence of urine. Musculoskeletal: Patient endorses some aching to the upper back/lower neck but states it is better. He denies any pain to the neck or extremities. Neurologic: Patient complains of chronic localised weakness to the right wrist and both knees after surgery. He denies any headache, dizziness, numbness or tingling. (Vamsi Pino) Exam Results 05/26/17 05/26/17 05/27/17 05/27/17 05/28/17 05/28/17 06:00 18:00 06:00 18:00 06:00 18:00 Intake Total 980 ml 1931 ml 360 ml 240 ml 240 ml 240 ml Output Total 700 ml 1200 ml 450 ml 300 ml 1000 ml Balance 280 ml 731 ml -90 ml 240 ml -60 ml -760 ml Intake Oral 480 ml 700 ml 360 ml 240 ml 240 ml 240 ml IV Total 1231 ml Packed Cells 500 ml Output Urine Total 700 ml 1200 ml 450 ml 300 ml 1000 ml # Voids 1 2 # Bowel Movements 0 0 0 0 0 0 Vital Signs Date Time Temp Pulse Resp B/P (MAP) Pulse Ox O2 Delivery O2 Flow Rate FiO2 05/28/17 15:33 97.8 90 19 154/64 (94) 95 05/28/17 11:24 90 Nasal Cannula 2.00 05/28/17 10:50 97.4 79 19 131/67 (88) 92 05/28/17 06:50 97.8 110 21 154/95 (114) 93 05/28/17 02:50 98.5 92 20 173/96 (121) 93 05/27/17 22:50 97.6 88 19 163/78 (106) 95 05/27/17 18:50 97.4 84 18 158/80 (106) 95 05/27/17 16:00 97.0 91 18 159/84 (109) 96 05/27/17 15:45 95 Nasal Cannula 2.00 05/27/17 14:50 97.6 82 18 156/80 (105) 95 05/27/17 12:50 97.8 81 18 160/76 (104) 92 05/27/17 12:00 97.2 80 18 160/75 (103) 95 05/27/17 11:50 97.7 80 18 159/74 (102) 96 05/27/17 10:50 97.3 81 16 158/72 (100) 94 05/27/17 08:13 93 Nasal Cannula 2.00 05/27/17 08:00 96.4 80 20 175/89 (117) 94 05/27/17 00:40 96.9 77 18 144/72 (96) 94 05/26/17 20:00 96.8 88 21 165/90 (115) 94 05/26/17 16:00 96.8 85 17 158/76 (103) 94 05/26/17 15:17 92 Nasal Cannula 2.00 05/26/17 08:00 96.8 85 18 156/100 (118) 92 05/26/17 07:59 Nasal Cannula 2.00 05/26/17 06:02 92 Nasal Cannula 2.00 05/26/17 04:15 96.9 73 21 128/73 (91) 92 05/26/17 00:30 96.7 76 19 138/75 (96) 94 05/25/17 21:14 96.7 78 19 161/77 92 05/25/17 20:57 93 Nasal Cannula 2.00 05/25/17 18:46 97.5 80 19 161/80 93 05/25/17 18:29 97.7 82 20 161/77 93 (Vamsi Pino) Physical Examination GENERAL: Patient awake & alert and readily interacts. Affect essentially normal. No distress apparent. SKIN: Warm, dry & intact w/o any rashes, ulceration or other lesions noted. HEENT: Normocephalic, atraumatic. NECK: [place] J cervical collar in place, NTTP at the cervicothoracic junction and midline cervical spine, no JVD, trachea midline. MUSCULOSKELETAL: Mildly TTP over the left sciatic notch & left lateral hip- trochanteric bursa tenderness. Chronic deformity in the right wrist and thumb. NEUROLOGICAL: AAOx3. Speech clear & appropriate. Follow simple commands well. Sensation intact to light touch BUE & RLE, decreased sensation to left calf otherwise LLE normal. 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 (Vamsi Pino) Lab, Micro, Other Results Laboratory Tests Test 05/26/17 04:57 05/27/17 07:20 05/28/17 09:09 White Blood Count 6.2 TH/MM3 5.6 TH/MM3 8.8 TH/MM3 Red Blood Count 3.27 MIL/MM3 3.34 MIL/MM3 2.90 MIL/MM3 Hemoglobin 8.6 GM/DL 8.7 GM/DL 7.7 GM/DL Hematocrit 26.4 % 27.0 % 23.6 % Mean Corpuscular Volume 80.6 FL 80.7 FL 81.3 FL Mean Corpuscular Hemoglobin 26.1 PG 26.2 PG 26.6 PG Mean Corpuscular Hemoglobin Concent 32.4 % 32.4 % 32.8 % Red Cell Distribution Width 16.5 % 16.8 % 17.5 % Platelet Count 308 TH/MM3 300 TH/MM3 272 TH/MM3 Mean Platelet Volume 6.1 FL 6.2 FL 6.0 FL Neutrophils (%) (Auto) 62.7 % Lymphocytes (%) (Auto) 21.1 % Monocytes (%) (Auto) 8.8 % Eosinophils (%) (Auto) 6.8 % Basophils (%) (Auto) 0.6 % Neutrophils # (Auto) 3.9 TH/MM3 Lymphocytes # (Auto) 1.3 TH/MM3 Monocytes # (Auto) 0.5 TH/MM3 Eosinophils # (Auto) 0.4 TH/MM3 Basophils # (Auto) 0.0 TH/MM3 CBC Comment DIFF FINAL Differential Comment Haptoglobin 341 MG/DL Blood Urea Nitrogen 50 MG/DL 58 MG/DL 58 MG/DL Creatinine 2.73 MG/DL 2.96 MG/DL 3.30 MG/DL Random Glucose 76 MG/DL 79 MG/DL 80 MG/DL Calcium Level 8.2 MG/DL 7.5 MG/DL 7.9 MG/DL Sodium Level 137 MEQ/L 138 MEQ/L 137 MEQ/L Potassium Level 5.0 MEQ/L 5.0 MEQ/L 5.2 MEQ/L Chloride Level 104 MEQ/L 103 MEQ/L 103 MEQ/L Carbon Dioxide Level 27.3 MEQ/L 28.6 MEQ/L 28.2 MEQ/L Anion Gap 6 MEQ/L 6 MEQ/L 6 MEQ/L Estimat Glomerular Filtration Rate 24 ML/MIN 22 ML/MIN 20 ML/MIN Iron Level 27 MCG/DL Total Iron Binding Capacity 267 MCG/DL Percent Iron Saturation 10.1 % Ferritin 154 NG/ML Lactate Dehydrogenase 196 U/L Vitamin B12 Level 511 PG/ML Folate 11.1 NG/ML (Vamsi Pino) Medical Decision Making Impression and Plan Impression: 1. Mild T1 compression fracture without significant retropulsion. 2. Significant cervical spondylosis and degenerative disc disease with question of previous discitis 3. L4 5 severe degenerative changes with question of previous discitis. 4. Probable chronic left L5 radiculopathy with motor deficit 5. Left gluteal myofascial injury. Probable mild left sciatic nerve contusion. Patient with with stable neurological exam except for slight decrease in motor strength to the right deltoid. Plan: Short course of Toradol [place] J cervical collar Out of bed with assistance PT eval and treat (Vamsi Pino) Attending Statement The exam, history, and the medical decision-making described in the above note were completed with the assistance of the mid-level provider. I reviewed and agree with the findings presented. I attest that I had a [id number] encounter with the patient on the same day, and personally performed and documented my assessment and findings in the medical record. On examination today patient with persistent significant left gluteal and hip pain with some radiation to the proximal left lower extremity. Probable chronic left tibialis anterior weakness. Continuing cervical collar for T1 fracture Consider MRI lumbar spine and left hip if left hip and lower extremity pain symptoms persist. (Marko Hill MD) Vamsi Pino May 28, 2017 16:49 Marko Hill MD May 28, 2017 20:49
[2017-05-28] MEDS: DOXAZOSIN MESYLATE 4 MG TAB PO SCH (22:56)
[2017-05-29] VITALS (10 sets, daily range): BP systolic 107–188; BP diastolic 56–82; PULSE 70–108; RESP 17–19; TEMP 96.4–100.5; O2SAT 92–99
[2017-05-29] MEDS: CYCLOBENZAPRINE HCL 10 MG TAB PO SCH ×2 (06:00→06:11)
[2017-05-29 07:12] LABS: AUTOMATED NEUTROPHIL # 8.6 TH/MM3 (1.8-7.7); BASOPHIL # 0.1 TH/MM3 (0-0.2); BASOPHIL % 0.6 % (0.0-2.0); EOSINOPHIL # 0.4 TH/MM3 (0-0.4); EOSINOPHIL % 3.8 % (0.0-4.0); HEMATOCRIT 25.9 % (39.0-51.0); HEMO FLAGS DIFF FINAL; LYMPH % 8.4 % (9.0-44.0); LYMPHOCYTE # 0.9 TH/MM3 (1.0-4.8); MEAN CELL VOLUME 81.8 FL (80.0-100.0); MEAN CORPUSCULAR HEMOGLOBIN 25.9 PG (27.0-34.0); MEAN CORPUSCULAR HGB CONC 31.6 % (32.0-36.0); NEUT % 81.2 % (16.0-70.0); PLATELET COUNT 336 TH/MM3 (150-450); RED BLOOD COUNT 3.17 MIL/MM3 (4.50-5.90); RED CELL DISTRIBUTION WIDTH 17.2 % (11.6-17.2); WHITE BLOOD COUNT 10.5 TH/MM3 (4.0-11.0)
[2017-05-29] MEDS: RESP: ALBUTEROL 2.5 MG/IPRATROPIUM 0.5 MG NEB (SCH) NEB ×3 (07:31→20:49)
[2017-05-29 07:40] LABS: ANION GAP 6 MEQ/L (5-15); AST (GOT) 33 U/L (15-37); BICARBONATE 26.7 MEQ/L (21.0-32.0); BLOOD UREA NITROGEN 57 MG/DL (7-18); CHLORIDE 103 MEQ/L (98-107); GLOMERULAR FILTRATION RATE 18 ML/MIN (>89); POTASSIUM 5.1 MEQ/L (3.5-5.1); SODIUM (NA) 136 MEQ/L (136-145)
[2017-05-29 07:49] LABS: ALKALINE PHOSPHATASE 163 U/L (45-117); ALT (GPT) 22 U/L (12-78); TOTAL BILIRUBIN ADULT 0.4 MG/DL (0.2-1.0)
[2017-05-29 07:50] LABS: CREATINE KINASE 72 U/L (39-308)
[2017-05-29] MEDS: DOCUSATE SODIUM 50 MG/SENNA 8.6 MG TAB PO SCH ×2 (09:00→21:00)
[2017-05-29] MEDS: busPIRone HCL 10 MG TAB PO SCH ×3 (09:00→17:25)
[2017-05-29] MEDS: SODIUM CHLORIDE 0.9% FLUSH 10 ML FLUSH IV FLUSH SCH ×2 (09:00→20:29)
[2017-05-29] MEDS: FERROUS SULFATE 325 MG (65 MG ELEMENTAL IRON) TAB PO SCH ×2 (09:00→20:28)
[2017-05-29] MEDS: amLODIPine BESYLATE 5 MG TAB PO SCH (09:00)
[2017-05-29] MEDS: PRAVASTATIN SOD 40 MG TAB PO SCH (09:00)
[2017-05-29] MEDS ORDERED: LORazepam 2 MG/ML VIAL ONE (09:07)
--- NOTE | 2017-05-29 09:14 | RADRPT ---
EXAM DATE/TIME: 05/29/2017 08:42 [facility] COMPARISON: No previous studies available for comparison. INDICATIONS : Stroke alert, left sided weakness, unable to talk RADIATION DOSE: 56.35 CTDIvol (mGy) This report was called by Dr. Strickland to Dr. Hill at 9: 09 AM on 05/29/17. MEDICAL HISTORY : Chronic obstructive pulmonary disease. Renal insufficiency. SURGICAL HISTORY : None. ENCOUNTER: Initial ACUITY: 1 day PAIN SCALE: Non-responsive LOCATION: cranial TECHNIQUE: Multiple contiguous axial images were obtained of the head. Using automated exposure control and adj ustment of the mA and/or kV according to patient size, radiation dose was kept as low as reasonably a chievable to obtain optimal diagnostic quality images. DICOM format image data is available electro nically for review and comparison. FINDINGS: CEREBRUM: The ventricles are normal for age. No evidence of midline shift, mass lesion, hemorrhage or acute in farction. No extra-axial fluid collections are seen. POSTERIOR FOSSA: The cerebellum and brainstem are intact. The 4th ventricle is midline. The cerebellopontine angle i s unremarkable. EXTRACRANIAL: The visualized portion of the orbits is intact. Nasal septal deviation to the right is noted. Mucous retention cyst is noted within right maxillary sinus. SKULL: The calvaria is intact. No evidence of skull fracture. CONCLUSION: 1. No acute infarct, acute hemorrhage, midline shift or extra-axial fluid collections. 2. Mucous retention cyst within the right maxillary sinus. 3. Nasal septal deviation to the right. Denilson Strickland MD on May 29, 2017 at 9:06 Board Certified Radiologist. This report was verified electronically.
[2017-05-29] MEDS ORDERED: PHENYTOIN INJ 1,000 MG in SODIUM CHLORIDE 0.9% INJ 100 ML IV ONE (09:30)
[2017-05-29 10:22] LABS: BLOOD GAS BASE EXCESS -1.8 mmol/L (-2-2); BLOOD GAS CARBOXYHEMOGLOBIN 2.1 % (0-4); BLOOD GAS HCO3 25 mmol/L (22-26); BLOOD GAS METHEMOGLOBIN 0.6 % (0-2); BLOOD GAS O2 HGB SATURATION 88 % (90-100); BLOOD GAS OXYGEN CONTENT 9.6 Vol % (12.0-20.0); BLOOD GAS PCO2 67 mmHg (38-42); BLOOD GAS PO2 67 mmHg (61-120); BLOOD GAS TOTAL HGB 7.7 G/DL (12.0-16.0); TEMP CORR TO 98.6
[2017-05-29 10:25] LABS: CRITICAL VALUE YES
[2017-05-29 10:26] LABS: DRAW SITE RT RADIAL; LITER FLOW 6 L/M; NUMBER OF ARTERIAL PUNCTURES 1; OXYGEN DEVICE NASAL CANNULA; STAT NO; ULNAR PULSE PRESENT
--- NOTE | 2017-05-29 10:27 | MB ---
cc: YUVAL GARCÍA M.D. DATE OF CONSULTATION: 05/29/2017 HISTORY OF PRESENT ILLNESS This is a 57-year-old seen for stat consult. Actually I was on the elevator when he was being transported back from the CT scan and subsequently spoke to Dr. Walsh. The patient was found unresponsive this morning and the duration of this neurologic change is uncertain but last evening he was conversant and appeared to be doing reasonably well. He has been in the hospital for a few days for a fall with subsequent T1 fracture treated conservatively. He has a brace and he has been followed by neurosurgery. I saw the patient promptly and discussed with the nursing staff. He at times responds verbally to some simple questions and even followed simple commands. He is having twitching, some mild jerking involving different areas of the body including his jaw, facial muscles, leg and this appears to be affecting bilateral areas of the body intermittently. He did move all four extremities but obviously has difficulty holding arms elevated and performing more than some mild motor tasks. His reflexes were present at the knees and elbows, absent at the ankles and plantar responses probably flexor bilaterally. There is some edema of the distal lower extremities. Pupils were about same size, reactive. He has received Percocet here and apparently took Percocet at home for chronic pain. He received a dose of morphine but that was on 05/26 in the evening. He is otherwise on pravastatin, ceftriaxone, Cardura, ferrous sulfate, BuSpar, albuterol, Flexeril, which is 5 mg every 8 hours and did not receive it this morning. He is on Gabapentin, amlodipine. The CT brain was called to me as negative for any acute process. ASSESSMENT Acute neurologic change this morning, duration is not quite certain. The Halicat response was carried out by the staff and a CT brain is negative. I am finding on exam that he is probably having seizures. It is not suggestive of acute cerebrovascular event, though this is not ruled out. I am going to treat him for seizures with Dilantin, Ativan and obtain an EEG a.s.a.p. and see how he responds to these. Hold off all central nervous system medications including the Flexeril and pain killers. I will follow the neurological course. The case also discussed with the cardiac rehabilitation specialist, Dr. Walsh. Thank you for asking us to assist in his care. MD DANNY Hurtado/TLWilder /9:28 AM /10:01 AM
[2017-05-29] MEDS ORDERED: ETOMIDATE 20 MG/10 ML VIAL ONE (10:37)
[2017-05-29] MEDS ORDERED: ROCURONIUM INJ 50 MG/5 ML VIAL ONE (10:40)
[2017-05-29] MEDS ORDERED: PROPOFOL 1000 MG/100 ML INJ 100 ML ONE (10:43)
[2017-05-29] MEDS ORDERED: LORazepam 2 MG/ML VIAL IV ONE (11:00)
--- NOTE | 2017-05-29 11:24 | HHI.PR ---
Subjective Remarks Patient incoherent and unable to communicate this morning. Repetitive twitching present. Stroke versus seizure. Objective Vital Signs Date Time Temp Pulse Resp B/P (MAP) Pulse Ox O2 Delivery O2 Flow Rate FiO2 05/29/17 11:10 96 50 05/29/17 11:01 92 5.00 05/29/17 08:00 100.5 108 18 155/78 (103) 92 05/29/17 07:32 Nasal Cannula 4.00 05/29/17 04:00 96.4 92 19 188/82 (117) 94 05/29/17 02:00 Nasal Cannula 2.00 Humidified 05/29/17 00:00 99.0 92 17 166/78 (107) 94 05/28/17 23:57 18 05/28/17 23:57 18 05/28/17 20:19 92 Nasal Cannula 3.00 05/28/17 19:39 97.1 90 19 155/74 (101) 94 05/28/17 15:33 97.8 90 19 154/64 (94) 95 05/28/17 11:24 90 Nasal Cannula 2.00 I/O 05/28/17 05/28/17 05/28/17 05/29/17 05/29/17 05/29/17 07:00 15:00 23:00 07:00 15:00 23:00 Intake Total 240 ml 100 ml 450 ml 240 ml Output Total 650 ml 350 ml 450 ml Balance -410 ml -250 ml 0 ml 240 ml Intake Oral 240 ml 450 ml 240 ml IV Total 100 ml Output Urine Total 650 ml 350 ml 450 ml # Voids 3 # Bowel Movements 0 0 0 Result Diagram: 05/29/1748 05/29/17 0648 Objective Remarks GENERAL: NAD, A&Ox3 HEAD: Normocephalic. NECK: Supple, trachea midline. No lymphadenopathy. EYES: No scleral icterus. No injection or drainage. CARDIOVASCULAR: Regular rate and rhythm without murmurs, gallops, or rubs. RESPIRATORY: Breath sounds equal bilaterally. No accessory muscle use. GASTROINTESTINAL: Abdomen soft, non-tender, nondistended. MUSCULOSKELETAL: No cyanosis, or edema. Patient is wearing an orthopedic collar SKIN: Warm and dry. NEURO: No focal neurological deficitis. A/P Problem List: (1) T1 vertebral fracture ICD Code: S22.019A - Unspecified fracture of first thoracic vertebra, initial encounter for closed fracture Status: Acute (2) Intractable pain ICD Code: R52 - Pain, unspecified Status: Acute (3) Acute kidney injury ICD Code: N17.9 - Acute kidney failure, unspecified Status: Acute Assessment and Plan Assessment and Plan 57-year-old male admitted after having mechanical fall with a T1 fracture. STAT CT of brain demonstrates no evidence of bleeding or CVA, increasing suspicion of seizure. Seizure suspected. Neurology consulted. Patient transferred to ICU. Tank St[employer] As[employer]er consulted. Patient has previously denied alcohol abuse and his mother also stated that she does not drink alcohol. Status epilepticus Etiology not yet certain Transfer to ICU Seizure precautions Benzodiazepine started as a treatment Neurology consulted Tank Stave As[employer]er consulted CT of head shows no intracranial hemorrhage Nondisplaced with mild compression of T1 vertebrae Conservative therapy Neurosurgery following Continue cervical brace PT Gluteal myofascia pain secondary to trauma Improving Continue as needed pain treatments Continue muscle relaxers Physical therapy Patient's preferences discharge to home Will need improved ambulation prior to home discharge COPD Asthma Continue duo nebs Continue albuterol as needed Recommended smoking cessation Chronic kidney disease Polycystic kidney disease Avoid nephrotoxins Follow renal function Anemia History of iron deficiency anemia Follow H&H Continue ferrous sulfate Tobacco dependence Smoking cessation recommended Diabetes mellitus type 2 Follow blood sugars Insulin sliding scale Diabetic diet polycystic liver disease hyperlipidemia hypertension anxiety Continue baseline treatments Follows in outpatient DVT prophylaxis SCDs Discharge Planning Plan for discharge to home once patient is stable William Walsh MD May 29, 2017 11:23
[2017-05-29 11:58] LABS: BACTERIA, URINE MOD /hpf; BLOOD, URINE MOD (NEG); GLUCOSE,URINE NEG (NEG); KETONE, URINE NEG (NEG); NITRITE,URINE NEG (NEG); PH, URINE 5.5 (5.0-8.5); SQUAMOUS EPITHELIAL CELL URINE 6 /hpf (0-5); URINE COLOR YELLOW (YELLW/STRAW)
--- NOTE | 2017-05-29 11:58 | RADRPT ---
EXAM DATE/TIME: 05/29/2017 11:15 [facility] COMPARISON: No previous studies available for comparison. INDICATIONS : Post intubation. MEDICAL HISTORY : Chronic obstructive pulmonary disease. Renal insufficiency. SURGICAL HISTORY : None. ENCOUNTER: Initial ACUITY: 4 - 6 days PAIN SCORE: Non-responsive. LOCATION: Chest FINDINGS: A single view of the chest demonstrates the patients had an endotracheal tube placed in good position . NG tube is in good position. There is some atelectasis right lower lobe. There is no visible pne umothorax. Mild atelectasis left lung base retrocardiac region. Two healed left-sided rib fractures are stable. CONCLUSION: 1. ET tube in good position. 2. Bibasilar atelectasis. 3. No pneumothorax. Leonardo Avendano MD on May 29, 2017 at 11:46 Board Certified Radiologist. This report was verified electronically.
[2017-05-29 11:59] LABS: COMMENT (UR) CATH-CULTURE IND; CULTURE IF INDICATED CATH CULTURE IND
[2017-05-29] MEDS: INSULIN ASPART SUPPLEMENTAL SCALE SQ SCH ×2 (12:00→17:25)
[2017-05-29 12:48] LABS: BLOOD GAS BASE EXCESS -0.5 mmol/L (-2-2); BLOOD GAS CARBOXYHEMOGLOBIN 2.1 % (0-4); BLOOD GAS HCO3 25 mmol/L (22-26); BLOOD GAS METHEMOGLOBIN 0.8 % (0-2); BLOOD GAS O2 HGB SATURATION 94 % (90-100); BLOOD GAS OXYGEN CONTENT 9.4 Vol % (12.0-20.0); BLOOD GAS PCO2 50 mmHg (38-42); BLOOD GAS PO2 85 mmHg (61-120); CRITICAL VALUE NO; OXYGEN DEVICE VENTILATOR; TEMP CORR TO 98.6
[2017-05-29 12:49] LABS: DRAW SITE RT RADIAL; FIO2 50 %; VENT SETTINGS AC/RR16/VT550/PEEP5
[2017-05-29 12:50] LABS: NUMBER OF ARTERIAL PUNCTURES 1; STAT NO; ULNAR PULSE PRESENT
--- NOTE | 2017-05-29 15:59 | MG ---
cc: LINDA RAZO Lab No: [id number] Date: 05/29/2017 Age: Sex: M Race: TECHNIQUE 17-channel EEG. DESCRIPTION: The background rhythm is generally slow and the theta and delta frequency ranging from 3-4 Hz. There is some eye movement artifact and muscle artifact present. No lateralizing features identified. There are no epileptiform features seen. Photic results in a poor driving response. INTERPRETATION Abnormal study consistent with a moderate to severe encephalopathy. MD LAUREN Glynn/ERNA /3:32 PM /3:51 PM
[2017-05-29 16:35] LABS: AUTOMATED NEUTROPHIL # 5.6 TH/MM3 (1.8-7.7); BASOPHIL % 0.6 % (0.0-2.0); EOSINOPHIL # 0.3 TH/MM3 (0-0.4); EOSINOPHIL % 4.1 % (0.0-4.0); HEMATOCRIT 21.9 % (39.0-51.0); HEMO FLAGS DIFF FINAL; LYMPH % 11.7 % (9.0-44.0); LYMPHOCYTE # 0.9 TH/MM3 (1.0-4.8); MEAN CELL VOLUME 81.3 FL (80.0-100.0); MEAN CORPUSCULAR HEMOGLOBIN 26.6 PG (27.0-34.0); MEAN CORPUSCULAR HGB CONC 32.7 % (32.0-36.0); MONO % 6.8 % (0.0-8.0); NEUT % 76.8 % (16.0-70.0); PLATELET COUNT 283 TH/MM3 (150-450); RED BLOOD COUNT 2.69 MIL/MM3 (4.50-5.90); RED CELL DISTRIBUTION WIDTH 17.6 % (11.6-17.2); WHITE BLOOD COUNT 7.4 TH/MM3 (4.0-11.0)
[2017-05-29 16:41] LABS: PROTHROMBIN TIME - PATIENT 11.3 SEC (9.8-11.6)
--- NOTE | 2017-05-29 17:33 | HHI.NSPN ---
(Vamsi Pnio) History Chief Complaint: Unable to obtain due to patient's clinical condition. (Vamsi Pino) Interval History 05/25: 57-year-old male was helping his mother down some stairs on Friday morning 06/03/17 when they both fell. He had immediate onset of back and left hip and groin pain. He went to bed last evening and the pain continued to increase. He was brought to the emergency room per EMS today. His initial x- rays revealed a T1 nondisplaced fracture. He complains of neck pain as well as rather severe left lateral hip pain with radiation to the left lateral hip and thigh. He complains of mild numbness in the left anterior thigh. No bowel or bladder dysfunction. He does have a history of chronic back pain. States he has had abnormalities at the L4-5 level. Has had previous episodes of sciatica. 05/26: Patient is asleep but awakens to verbal stimulation. He is alert and interactive after that. His major complaint is pain to the left hip and thigh which causes him not to be able to get up. He does state he has some pain to the upper back/lower neck. He has the Cahto J cervical collar in place but the front half is off. 05/27: The patient is doing well this afternoon. He is sitting up in a chair with a lumbar support in place. He complains of numbness to the left calf and weakness to the left foot. 05/28: This afternoon the patient is sitting in the chair doing a breathing treatment when seen. He does have the Myxerai J cervical collar and a lumbar brace in place. He states that he has weakness to both knees and the right wrist after surgery which is chronic. 05/29: Per Nursing the patient became nonresponsive and had a seizure this morning and was started on phenytoin. He was subsequently transferred to [facility] where he had hypoxic respiratory failure and was intubated. He is sedated on propofol. (Vamsi Pino) System Review Comments Unable to obtain due to patient's clinical condition. (Vamsi Pino) Exam Results 05/27/17 05/27/17 05/28/17 05/28/17 05/29/17 05/29/17 06:00 18:00 06:00 18:00 06:00 18:00 Intake Total 360 ml 240 ml 240 ml 340 ml 690 ml Output Total 450 ml 300 ml 1000 ml 450 ml Balance -90 ml 240 ml -60 ml -660 ml 240 ml Intake Oral 360 ml 240 ml 240 ml 240 ml 690 ml IV Total 100 ml Output Urine Total 450 ml 300 ml 1000 ml 450 ml # Voids 2 3 # Bowel Movements 0 0 0 0 0 Vital Signs Date Time Temp Pulse Resp B/P (MAP) Pulse Ox O2 Delivery O2 Flow Rate FiO2 05/29/17 17:08 98 50 05/29/17 11:10 96 50 05/29/17 11:01 92 5.00 05/29/17 08:00 100.5 108 18 155/78 (103) 92 05/29/17 07:32 Nasal Cannula 4.00 05/29/17 04:00 96.4 92 19 188/82 (117) 94 05/29/17 02:00 Nasal Cannula 2.00 Humidified 05/29/17 00:00 99.0 92 17 166/78 (107) 94 05/28/17 23:57 18 05/28/17 23:57 18 05/28/17 20:19 92 Nasal Cannula 3.00 05/28/17 19:39 97.1 90 19 155/74 (101) 94 05/28/17 15:33 97.8 90 19 154/64 (94) 95 05/28/17 11:24 90 Nasal Cannula 2.00 05/28/17 10:50 97.4 79 19 131/67 (88) 92 05/28/17 06:50 97.8 110 21 154/95 (114) 93 05/28/17 02:50 98.5 92 20 173/96 (121) 93 05/27/17 22:50 97.6 88 19 163/78 (106) 95 05/27/17 18:50 97.4 84 18 158/80 (106) 95 05/27/17 16:00 97.0 91 18 159/84 (109) 96 05/27/17 15:45 95 Nasal Cannula 2.00 05/27/17 14:50 97.6 82 18 156/80 (105) 95 05/27/17 12:50 97.8 81 18 160/76 (104) 92 05/27/17 12:00 97.2 80 18 160/75 (103) 95 05/27/17 11:50 97.7 80 18 159/74 (102) 96 05/27/17 10:50 97.3 81 16 158/72 (100) 94 05/27/17 08:13 93 Nasal Cannula 2.00 05/27/17 08:00 96.4 80 20 175/89 (117) 94 05/27/17 00:40 96.9 77 18 144/72 (96) 94 05/26/17 20:00 96.8 88 21 165/90 (115) 94 (Vamsi Pino) Physical Examination GENERAL: Patient intubated and sedated with propofol 15 mcg/kg/min. SKIN: Warm, dry & intact w/o any rashes, ulceration or other lesions noted. HEENT: Normocephalic, atraumatic. PERRLA. Intubated. OGT. NECK: Cahto J cervical collar in place, no JVD, trachea midline. MUSCULOSKELETAL: Chronic deformity in the right wrist and thumb. NEUROLOGICAL: Intubated & sedated. No eye opening to verbal or localised or noxious stimulation. Unable to assess sensation due to clinical condition. Briskly withdrew LLE & slight flexion RUE to noxious stimulation, slight withdrawal LLE & slight flexion BUE to central noxious stimulation. (Vamsi Pino) Lab, Micro, Other Results Recent Impressions Head CT 05/29/17 0000 Signed Impressions: Service Date/Time: May 08:42 - CONCLUSION: 1. No acute infarct, acute hemorrhage, midline shift or extra-axial fluid collections. 2. Mucous retention cyst within the right maxillary sinus. 3. Nasal septal deviation to the right. Denilson Strickland MD Chest X-Ray 05/29/17 0000 Signed Impressions: Service Date/Time: May 11:15 - CONCLUSION: 1. ET tube in good position. 2. Bibasilar atelectasis. 3. No pneumothorax. Leonardo Avendano MD Laboratory Tests Test 05/27/17 07:20 05/28/17 09:09 05/29/17 06:48 05/29/17 10:05 White Blood Count 5.6 TH/MM3 8.8 TH/MM3 10.5 TH/MM3 Red Blood Count 3.34 MIL/MM3 2.90 MIL/MM3 3.17 MIL/MM3 Hemoglobin 8.7 GM/DL 7.7 GM/DL 8.2 GM/DL Hematocrit 27.0 % 23.6 % 25.9 % Mean Corpuscular Volume 80.7 FL 81.3 FL 81.8 FL Mean Corpuscular Hemoglobin 26.2 PG 26.6 PG 25.9 PG Mean Corpuscular Hemoglobin Concent 32.4 % 32.8 % 31.6 % Red Cell Distribution Width 16.8 % 17.5 % 17.2 % Platelet Count 300 TH/MM3 272 TH/MM3 336 TH/MM3 Mean Platelet Volume 6.2 FL 6.0 FL 6.2 FL Blood Urea Nitrogen 58 MG/DL 58 MG/DL 57 MG/DL Creatinine 2.96 MG/DL 3.30 MG/DL 3.57 MG/DL Random Glucose 79 MG/DL 80 MG/DL 79 MG/DL Calcium Level 7.5 MG/DL 7.9 MG/DL 9.0 MG/DL Sodium Level 138 MEQ/L 137 MEQ/L 136 MEQ/L Potassium Level 5.0 MEQ/L 5.2 MEQ/L 5.1 MEQ/L Chloride Level 103 MEQ/L 103 MEQ/L 103 MEQ/L Carbon Dioxide Level 28.6 MEQ/L 28.2 MEQ/L 26.7 MEQ/L Anion Gap 6 MEQ/L 6 MEQ/L 6 MEQ/L Estimat Glomerular Filtration Rate 22 ML/MIN 20 ML/MIN 18 ML/MIN Neutrophils (%) (Auto) 81.2 % Lymphocytes (%) (Auto) 8.4 % Monocytes (%) (Auto) 6.0 % Eosinophils (%) (Auto) 3.8 % Basophils (%) (Auto) 0.6 % Neutrophils # (Auto) 8.6 TH/MM3 Lymphocytes # (Auto) 0.9 TH/MM3 Monocytes # (Auto) 0.6 TH/MM3 Eosinophils # (Auto) 0.4 TH/MM3 Basophils # (Auto) 0.1 TH/MM3 CBC Comment DIFF FINAL Differential Comment Total Protein 7.7 GM/DL Albumin 2.5 GM/DL Alkaline Phosphatase 163 U/L Aspartate Amino Transf (AST/SGOT) 33 U/L Alanine Aminotransferase (ALT/SGPT) 22 U/L Total Bilirubin 0.4 MG/DL Total Creatine Kinase 72 U/L Blood Gas Puncture Site RT RADIAL Blood Gas Patient Temperature 98.6 Blood Gas HCO3 25 mmol/L Blood Gas Base Excess -1.8 mmol/L Blood Gas Oxygen Saturation 88 % Arterial Blood pH 7.20 Arterial Blood Partial Pressure CO2 67 mmHg Arterial Blood Partial Pressure O2 67 mmHg Arterial Blood Oxygen Content 9.6 Vol % Arterial Blood Carboxyhemoglobin 2.1 % Arterial Blood Methemoglobin 0.6 % Blood Gas Hemoglobin 7.7 G/DL Oxygen Delivery Device NASAL CANNULA Blood Gas Liter Flow 6 L/M Test 05/29/17 11:15 05/29/17 12:33 05/29/17 16:00 Urine Color YELLOW Urine Turbidity CLOUDY Urine pH 5.5 Urine Specific [place] 1.011 Urine Protein 100 mg/dL Urine Glucose (UA) NEG mg/dL Urine Ketones NEG mg/dL Urine Occult Blood MOD Urine Nitrite NEG Urine Bilirubin NEG Urine Urobilinogen LESS THAN 2.0 MG/DL Urine Leukocyte Esterase LARGE Urine RBC /hpf Urine WBC /hpf Urine WBC Clumps MANY Urine Squamous Epithelial Cells 6 /hpf Urine Bacteria MOD /hpf Urine Yeast with Hyphae MOD Urine Yeast (Budding) FEW Microscopic Urinalysis Comment CATH-CULTURE IND Blood Gas Puncture Site RT RADIAL Blood Gas Patient Temperature 98.6 Blood Gas HCO3 25 mmol/L Blood Gas Base Excess -0.5 mmol/L Blood Gas Oxygen Saturation 94 % Arterial Blood pH 7.31 Arterial Blood Partial Pressure CO2 50 mmHg Arterial Blood Partial Pressure O2 85 mmHg Arterial Blood Oxygen Content 9.4 Vol % Arterial Blood Carboxyhemoglobin 2.1 % Arterial Blood Methemoglobin 0.8 % Blood Gas Hemoglobin 7.0 G/DL Oxygen Delivery Device VENTILATOR Blood Gas Ventilator Setting AC/RR16/VT550/PEEP5 Blood Gas Inspired Oxygen 50 % White Blood Count 7.4 TH/MM3 Red Blood Count 2.69 MIL/MM3 Hemoglobin 7.2 GM/DL Hematocrit 21.9 % Mean Corpuscular Volume 81.3 FL Mean Corpuscular Hemoglobin 26.6 PG Mean Corpuscular Hemoglobin Concent 32.7 % Red Cell Distribution Width 17.6 % Platelet Count 283 TH/MM3 Mean Platelet Volume 6.2 FL Neutrophils (%) (Auto) 76.8 % Lymphocytes (%) (Auto) 11.7 % Monocytes (%) (Auto) 6.8 % Eosinophils (%) (Auto) 4.1 % Basophils (%) (Auto) 0.6 % Neutrophils # (Auto) 5.6 TH/MM3 Lymphocytes # (Auto) 0.9 TH/MM3 Monocytes # (Auto) 0.5 TH/MM3 Eosinophils # (Auto) 0.3 TH/MM3 Basophils # (Auto) 0.0 TH/MM3 CBC Comment DIFF FINAL Differential Comment Prothrombin Time 11.3 SEC Prothromb Time International Ratio 1.0 RATIO Activated Partial Thromboplast Time 31.0 SEC Fibrinogen 436 mg/dL Total Creatine Kinase 49 U/L Troponin I 0.04 NG/ML (Vamsi Pino) Medical Decision Making Impression and Plan Impression: 1. Mild T1 compression fracture without significant retropulsion. 2. Significant cervical spondylosis and degenerative disc disease with question of previous discitis 3. L4 5 severe degenerative changes with question of previous discitis. 4. Probable chronic left L5 radiculopathy with motor deficit 5. Left gluteal myofascial injury. Probable mild left sciatic nerve contusion. Patient with worsening neurological examination after reported seizure. Hypoxic respiratory failure. Plan: Critical care management per [employer]. Short course of Toradol. Cahto J cervical collar. (Vamsi Pino) Attending Statement The exam, history, and the medical decision-making described in the above note were completed with the assistance of the mid-level provider. I reviewed and agree with the findings presented. I attest that I had a [id number] encounter with the patient on the same day, and personally performed and documented my assessment and findings in the medical record. Patient's neurologic exam remained stable. Continue to mobilize out of bed with TLSO brace. Symptomatic treatment for probable lumbar radiculopathy (Marko Hill MD) Vamsi Pino May 29, 2017 17:33 Marko Hill MD Jun 23, 2017 06:57
[2017-05-29] MEDS ORDERED: RESP: ALBUTEROL 2.5 MG/IPRATROPIUM 0.5 MG NEB (PRN) NEB (17:45)
--- NOTE | 2017-05-29 17:54 | PD.CONS ---
[facility] Service Critical Care Medicine Consult Requested By Dr. Walsh Reason for Consult seizure, altered mental status Primary Care Physician [facility] History of Present Illness History of Present Illness This is a 57-year-old male past medical history of chronic kidney disease, polycystic kidney disease, polycystic liver disease, hypertension, COPD, and anxiety who presented with a fall. Patient stated that he try to prevent his mom from falling down the stairs and fell down with her. He stated that he was able to get up it was very painful and went to his bed. He stated that after he laid down he was not able to get up at all. Because of this he went to the emergency department. Patient was initially seen and port [place] in which extensive workup was done. He was found to have nondisplaced fracture of T1 vertebrae with mild compression. Neurosurgeon Dr. Hill consulted and recommended transfer to the [facility]. Patient was also found to be anemic. He stated that he has a history anemia and he was told to take ferrous sulfate but he did not take the medication. He stated that he was told that he had an anemia due to his polycystic kidney disease. Patient was evaluated by neurosurgery and was recommended conservative management for his T1 fracture and had a [place] J collar placed. On the morning of 05/29 patient was noted to be minimally responsive with altered mental status. A rapid response team was activated and Stat head CT was ordered and neurology Dr. Hill was consulted by Dr. Walsh from the hospitalist service. Patient was noted to have twitching involving his extremities bilaterally as well as his face and jaw per documentation by Dr. Hill who felt that the patient was having seizures. Patient was given Ativan 1 mg IV as well as loaded with Dilantin 1 g IV stat, and patient was transferred to the ICU. Critical care was consulted by Dr. Walsh and I evaluated the patient immediately on his arrival to the ICU. At that time he was essentially unresponsive with sonorous respirations and O2 sats in the 70s. ABG done earlier revealed PCO2 in the 60s. Patient was not protecting his airway hence decision was made to see with emergent endotracheal intubation and patient was placed on mechanical ventilation. History was obtained by reviewing records and discussion with nursing staff and rapid response team. Off note patient did have a UA done a few days ago and was being treated for UTI with IV Rocephin. Past Family Social History Past Medical History Umbilical hernia Hypertension Chronic pain from L4/L5 COPD/asthma Anxiety disorder Iron deficiency anemia Polycystic kidney disease Polyp cystic liver disease Hyperlipidemia Type 2 diabetes Past Surgical History Right wrist surgery Bilateral knee arthroscopy Reported Medications Reported Meds & Active Scripts Active Diclofenac Sodium DR (Diclofenac Sodium) 75 Mg Tabdr 75 Mg PO BID Reported Gabapentin 300 Mg Cap 300 Mg PO BID Furosemide 20 Mg Tab 20 Mg PO DAILY Doxazosin (Doxazosin Mesylate) 4 Mg Tab 4 Mg PO HS Buspirone (Buspirone HCl) 10 Mg Tab 10 Mg PO TID Combivent Respimat Inh (Ipratropium-Albuterol Inh) 20-100 Retirement/Act Aero 1 Puff INH QID Amlodipine (Amlodipine Besylate) 2.5 Mg Tab 2.5 Mg PO DAILY Pravastatin 40 Mg Tab 40 Mg PO DAILY Glipizide 5 Mg Tab 5 Mg PO BIDAC Take 30 minutes before a meal Allergies: Coded Allergies: No Known Allergies (Unverified , 10/01/16) Administered Medications Medications (Trade) Dose Ordered Sig/Mian Route PRN Reason Start Time Stop Time Status Last Admin Dose Admin Sodium Chloride (NS Flush) 2 ml BID IV FLUSH 05/25/17 09:00 05/28/17 22:56 Ceftriaxone Sodium 1000 mg/ Sodium Chloride 100 ml @ 200 mls/hr Q24H IV 05/26/17 08:00 05/28/17 09:33 Senna/Docusate Sodium ([place]-Colace) 1 tab BID PO 05/25/17 10:00 05/28/17 22:55 Magnesium Hydroxide (Milk Of Magnesia Liq) 30 ml Q12H PRN PO MILD - MODERATE CONSTIPATION 05/25/17 08:45 05/26/17 20:51 Amlodipine Besylate (Norvasc) 2.5 mg DAILY PO 05/25/17 13:30 05/28/17 09:34 Buspirone HCl (Buspar) 10 mg TID PO 05/25/17 18:00 05/28/17 18:53 Doxazosin Mesylate (Cardura) 4 mg HS PO 05/25/17 21:00 05/28/17 22:56 Pravastatin Sodium (Pravachol) 40 mg DAILY PO 05/26/17 09:00 05/28/17 09:33 Ferrous Sulfate (Ferrous Sulfate) 325 mg BID PO 05/25/17 21:00 05/28/17 22:56 Review of Systems ROS Limitations: Clinical Condition, Intubated Physical Exam Vital Signs Vital Signs Date Time Temp Pulse Resp B/P (MAP) Pulse Ox O2 Delivery O2 Flow Rate FiO2 05/29/17 17:08 98 50 05/29/17 11:10 96 50 05/29/17 11:01 92 5.00 05/29/17 08:00 100.5 108 18 155/78 (103) 92 05/29/17 07:32 Nasal Cannula 4.00 05/29/17 04:00 96.4 92 19 188/82 (117) 94 05/29/17 02:00 Nasal Cannula 2.00 Humidified 05/29/17 00:00 99.0 92 17 166/78 (107) 94 05/28/17 23:57 18 05/28/17 23:57 18 05/28/17 20:19 92 Nasal Cannula 3.00 05/28/17 19:39 97.1 90 19 155/74 (101) 94 Physical Exam HEENT/ Neuro: Sedated, orally intubated, pupils bilaterally constricted 2 mm reactive to light Pallor present, no icterus, tongue/ mucosa moist Neck: [place] J collar in place Chest/Pulm: on mech vent, good air entry bilaterally, scattered rhonchi, no wheezing or crackles CVS: S1-S2 regular, no murmur GI/abdomen: soft, nontender, bowel sounds sluggish Extremities: warm bilaterally, no edema Laboratory Laboratory Tests Test 05/29/17 06:48 05/29/17 10:05 05/29/17 11:15 05/29/17 12:33 White Blood Count 10.5 Red Blood Count 3.17 Hemoglobin 8.2 Hematocrit 25.9 Mean Corpuscular Volume 81.8 Mean Corpuscular Hemoglobin 25.9 Mean Corpuscular Hemoglobin Concent 31.6 Red Cell Distribution Width 17.2 Platelet Count 336 Mean Platelet Volume 6.2 Neutrophils (%) (Auto) 81.2 Lymphocytes (%) (Auto) 8.4 Monocytes (%) (Auto) 6.0 Eosinophils (%) (Auto) 3.8 Basophils (%) (Auto) 0.6 Neutrophils # (Auto) 8.6 Lymphocytes # (Auto) 0.9 Monocytes # (Auto) 0.6 Eosinophils # (Auto) 0.4 Basophils # (Auto) 0.1 CBC Comment DIFF FINAL Differential Comment Blood Urea Nitrogen 57 Creatinine 3.57 Random Glucose 79 Total Protein 7.7 Albumin 2.5 Calcium Level 9.0 Alkaline Phosphatase 163 Aspartate Amino Transf (AST/SGOT) 33 Alanine Aminotransferase (ALT/SGPT) 22 Total Bilirubin 0.4 Sodium Level 136 Potassium Level 5.1 Chloride Level 103 Carbon Dioxide Level 26.7 Anion Gap 6 Estimat Glomerular Filtration Rate 18 Total Creatine Kinase 72 Blood Gas Puncture Site RT RADIAL RT RADIAL Blood Gas Patient Temperature 98.6 98.6 Blood Gas HCO3 25 25 Blood Gas Base Excess -1.8 -0.5 Blood Gas Oxygen Saturation 88 94 Arterial Blood pH 7.20 7.31 Arterial Blood Partial Pressure CO2 67 50 Arterial Blood Partial Pressure O2 67 85 Arterial Blood Oxygen Content 9.6 9.4 Arterial Blood Carboxyhemoglobin 2.1 2.1 Arterial Blood Methemoglobin 0.6 0.8 Blood Gas Hemoglobin 7.7 7.0 Oxygen Delivery Device NASAL CANNULA VENTILATOR Blood Gas Liter Flow 6 Urine Color YELLOW Urine Turbidity CLOUDY Urine pH 5.5 Urine Specific [place] 1.011 Urine Protein 100 Urine Glucose (UA) NEG Urine Ketones NEG Urine Occult Blood MOD Urine Nitrite NEG Urine Bilirubin NEG Urine Urobilinogen LESS THAN 2.0 Urine Leukocyte Esterase LARGE Urine RBC Urine WBC Urine WBC Clumps MANY Urine Squamous Epithelial Cells 6 Urine Bacteria MOD Urine Yeast with Hyphae MOD Urine Yeast (Budding) FEW Microscopic Urinalysis Comment CATH-CULTURE IND Blood Gas Ventilator Setting AC/RR16/VT550/PEEP5 Blood Gas Inspired Oxygen 50 Test 05/29/17 16:00 White Blood Count 7.4 Red Blood Count 2.69 Hemoglobin 7.2 Hematocrit 21.9 Mean Corpuscular Volume 81.3 Mean Corpuscular Hemoglobin 26.6 Mean Corpuscular Hemoglobin Concent 32.7 Red Cell Distribution Width 17.6 Platelet Count 283 Mean Platelet Volume 6.2 Neutrophils (%) (Auto) 76.8 Lymphocytes (%) (Auto) 11.7 Monocytes (%) (Auto) 6.8 Eosinophils (%) (Auto) 4.1 Basophils (%) (Auto) 0.6 Neutrophils # (Auto) 5.6 Lymphocytes # (Auto) 0.9 Monocytes # (Auto) 0.5 Eosinophils # (Auto) 0.3 Basophils # (Auto) 0.0 CBC Comment DIFF FINAL Differential Comment Prothrombin Time 11.3 Prothromb Time International Ratio 1.0 Activated Partial Thromboplast Time 31.0 Fibrinogen 436 Total Creatine Kinase 49 Troponin I 0.04 Date/Time Source Procedure Growth Status 05/25/17 08:00 Blood Peripheral Aerobic Blood Culture - Preliminary NO GROWTH IN 4 DAYS Resulted 05/25/17 08:00 Blood Peripheral Anaerobic Blood Culture - Preliminary NO GROWTH IN 4 DAYS Resulted 05/29/17 11:00 Sputum Endotracheal Gram Stain Pending Received 05/29/17 11:00 Sputum Endotracheal Sputum Culture Pending Received 05/29/17 11:15 Urine Catheterized Urine Urine Culture Pending Received Result Diagram: 05/29/17 1600 05/29/17 0648 Imaging Last Impressions Head CT 05/29/17 0000 Signed Impressions: Service Date/Time: May 08:42 - CONCLUSION: 1. No acute infarct, acute hemorrhage, midline shift or extra-axial fluid collections. 2. Mucous retention cyst within the right maxillary sinus. 3. Nasal septal deviation to the right. Denilson Strickland MD Chest X-Ray 05/29/17 0000 Signed Impressions: Service Date/Time: May 11:15 - CONCLUSION: 1. ET tube in good position. 2. Bibasilar atelectasis. 3. No pneumothorax. Leonardo Avendano MD Femur X-Ray 05/25/17 1359 Signed Impressions: Service Date/Time: Thursday, May 25, 2017 14:32 - CONCLUSION: No acute disease. Charanjit Orr MD Lumbar Spine X-Ray 05/25/17 0351 Signed Impressions: Service Date/Time: Thursday, May 25, 2017 04:30 - CONCLUSION: Chronic appearing findings as above. No fracture or acute-appearing malalignment demonstrated of the lumbar spine. Mario Moreno MD Cervical Spine CT 05/25/17 0351 Signed Impressions: Service Date/Time: Thursday, May 25, 2017 04:11 - CONCLUSION: 1. Nondisplaced fracture with mild compression deformity of T1 vertebral body, probably acute. No epidural hematoma or retropulsed fracture fragments. 2. Other findings appear chronic and please see above. Mario Moreno MD Wrist X-Ray 05/25/17 0000 Signed Impressions: Service Date/Time: Thursday, May 25, 2017 04:33 - CONCLUSION: 1. There is soft tissue swelling but I don't see an acute fracture or subluxation of the right wrist. 2. Chronic appearing destruction of the lunate and scaphoid, nonspecific but possibly related to old trauma or chronic arthropathy. Mario Moreno MD Hip and Pelvis X-Ray 05/25/17 0000 Signed Impressions: Service Date/Time: Thursday, May 25, 2017 04:22 - CONCLUSION: Pelvis and left hip are intact. Mario Moreno MD Abdomen/Pelvis CT 05/25/17 0000 Signed Impressions: Service Date/Time: Thursday, May 25, 2017 05:55 - CONCLUSION: 1. No visceral organ injury, fracture or other acute abnormality. 2. Degenerative changes of the lumbar spine, both hips and the pubic symphysis. There is considerable end plate irregularity at L4/L5, presumably reactive/degenerative but chronic discitis or the sequela of previous discitis could have a similar appearance. 3. Findings related to polycystic kidney disease with innumerable variable sized cysts throughout the liver and both kidneys noted. 4. Scattered sub-5 mm nonobstructing stones in both kidneys. 5. Nonspecific hepatosplenomegaly. Mario Moreon MD Septic Shock Reassessment Heart: Regular rate and rhythm Lungs: Course Skin: Warm Peripheral Pulses: Bounding Right Radial Capillary Refill: Brisk Assessment and Plan Assessment and Plan 57-year-old male with: Encephalopathy Suspected seizure Aspiration pneumonia Acute respiratory failure requiring mechanical ventilation UTI T1 fracture Diabetes mellitus CKD due to polycystic kidney disease Hypertension Chronic pain from L4/L5 COPD/asthma Anxiety disorder Iron deficiency anemia Polycystic liver disease Hyperlipidemia Plan: Neuro: Intubated for airway protection and hypoxia. Follow neuro status. Sedation with propofol. Loaded with Dilantin 1 g. We'll continue Dilantin 100 mg IV every 8 hourly. Follow free Dilantin level in a.m. Neurology consult noted. Follow up EEG. Decrease gabapentin dose in view of renal failure to 100 mg twice a day (from 300 mg twice a day). Continue buspar. Cardiovascular: IV hydration, watch for hypotension. Continue amlodipine. Pulmonary: Continue mechanical ventilation, vent bundle, bronchodilators as needed. Await improvement in neurologic status prior to initiating C Pap trials. GI/liver: Start tube feeds with Glucerna 1.5 and advanced to goal as tolerated. Renal/: IV hydration, strict intake output, monitor and replete electro lites , follow BUN creatinine. Consult nephrology as BUN creatinine rising. Will give Kayexalate 30 g via OG tube 2 doses in view of hyperkalemia. Continue cardura ID: Panculture as ordered. We'll broaden antibiotic coverage from Rocephin to IV Zosyn in view of suspected aspiration. Consult ID for sepsis/UTI/pneumonia for workup/antibiotic management in renal failure patient. Endocrine: SSI for glycemic control as needed. Heme: Follow CBC. Continue ferrous sulfate. Prophylaxis: PPI/SCDs/subcutaneous heparin. Condition critical. Time spent on critical care excluding procedures 60 minutes Duran Carson MD May 29, 2017 17:54
[2017-05-29] MEDS ORDERED: SODIUM POLYSTYRENE SULFONATE SUSP 15 GM/60 ML CUP PO SCH (18:00)
--- NOTE | 2017-05-29 18:01 | PD.PROCEDR ---
Procedure Note Procedure Procedure: Endotracheal intubation Preop diagnosis: Seizure, acute respiratory failure Postop diagnosis: Same Sedation used: Etomidate 20 mg, fentanyl 100 mcg, rocuronium 50 mg IV Procedure: Patient was preoxygenated with 100% oxygen via [] Ambu bag with bag mask ventilation, following induction of sedation and neuromuscular blockade, direct laryngoscopy was performed using a Mac 3 blade with good visualization of vocal cords. An 8 [place] ET tube was passed through the vocal cords under direct visualization up to the 25 centimeter lake and after inflating cuff of ET tube, correct placement was confirmed using bagging with good color change on CO2 detector, 5 point auscultation and chest rise with ventilation. Patient was connected to mechanical ventilation. Patient tolerated the procedure well with no immediate complications noted. Postprocedure chest x-ray was ordered. Duran Carson MD May 29, 2017 18:01
[2017-05-29] MEDS: PHENYTOIN INJ 100 MG/2 ML VIAL IV SCH ×2 (19:00→22:00)
[2017-05-29] MEDS: GABAPENTIN 100 MG CAP PO SCH (20:28)
[2017-05-29] MEDS: DOXAZOSIN MESYLATE 4 MG TAB PO SCH (20:28)
[2017-05-29] MEDS: PIPERACIL-TAZO 2.25 GM PREMIX 50 ML IV SCH (20:29)
[2017-05-29] MEDS: CHLORHEXIDINE 0.12% (ORAL KIT) 15 ML CUP MT SCH (20:30)
[2017-05-29] MEDS: PROPOFOL 1000 MG/100 ML INJ 100 ML IV PRN (20:38)
[2017-05-30] VITALS (18 sets, daily range): BP systolic 137–174; BP diastolic 68–87; PULSE 68–86; RESP 11–18; TEMP 97.8–98.8; O2SAT 92–99
[2017-05-30] MEDS: PROPOFOL 1000 MG/100 ML INJ 100 ML IV PRN ×2 (00:05→06:30)
[2017-05-30] MEDS: RESP: ALBUTEROL 2.5 MG/IPRATROPIUM 0.5 MG NEB (SCH) NEB ×4 (03:19→23:05)
[2017-05-30] MEDS: INSULIN ASPART SUPPLEMENTAL SCALE SQ SCH ×5 (06:00→22:51)
[2017-05-30] MEDS: PHENYTOIN INJ 100 MG/2 ML VIAL IV SCH ×2 (06:30→13:31)
[2017-05-30 07:59] LABS: ALT (GPT) 20 U/L (12-78); ANION GAP 7 MEQ/L (5-15); AST (GOT) 30 U/L (15-37); BICARBONATE 28.6 MEQ/L (21.0-32.0); BLOOD UREA NITROGEN 67 MG/DL (7-18); CHLORIDE 106 MEQ/L (98-107); GLOMERULAR FILTRATION RATE 16 ML/MIN (>89); POTASSIUM 4.8 MEQ/L (3.5-5.1); SODIUM (NA) 142 MEQ/L (136-145)
[2017-05-30] MEDS: CHLORHEXIDINE 0.12% (ORAL KIT) 15 ML CUP MT SCH ×2 (08:00→20:00)
[2017-05-30 08:02] LABS: ALKALINE PHOSPHATASE 93 U/L (45-117); AUTOMATED NEUTROPHIL # 4.5 TH/MM3 (1.8-7.7); BASOPHIL % 0.5 % (0.0-2.0); EOSINOPHIL # 0.3 TH/MM3 (0-0.4); HEMATOCRIT 22.2 % (39.0-51.0); HEMO FLAGS DIFF FINAL; LYMPH % 11.9 % (9.0-44.0); LYMPHOCYTE # 0.7 TH/MM3 (1.0-4.8); MEAN CELL VOLUME 81.2 FL (80.0-100.0); MEAN CORPUSCULAR HEMOGLOBIN 25.8 PG (27.0-34.0); MEAN CORPUSCULAR HGB CONC 31.7 % (32.0-36.0); MONO % 7.9 % (0.0-8.0); NEUT % 74.7 % (16.0-70.0); PLATELET COUNT 288 TH/MM3 (150-450); RED BLOOD COUNT 2.73 MIL/MM3 (4.50-5.90); RED CELL DISTRIBUTION WIDTH 17.4 % (11.6-17.2); TOTAL BILIRUBIN ADULT 0.3 MG/DL (0.2-1.0)
[2017-05-30] MEDS: PIPERACIL-TAZO 2.25 GM PREMIX 50 ML IV SCH ×3 (08:52→20:25)
--- NOTE | 2017-05-30 09:28 | HHI.CCPN ---
Subjective Remarks/Hospital Course 05/29: This is a 57-year-old male past medical history of chronic kidney disease , polycystic kidney disease, polycystic liver disease, hypertension, COPD, and anxiety who presented with a fall. Patient stated that he try to prevent his mom from falling down the stairs and fell down with her. He stated that he was able to get up it was very painful and went to his bed. He stated that after he laid down he was not able to get up at all. Because of this he went to the emergency department. Patient was initially seen and [place] in which extensive workup was done. He was found to have nondisplaced fracture of T1 vertebrae with mild compression. Neurosurgeon Dr. Hill consulted and recommended transfer to the [facility]. Patient was also found to be anemic. He stated that he has a history anemia and he was told to take ferrous sulfate but he did not take the medication. He stated that he was told that he had an anemia due to his polycystic kidney disease. Patient was evaluated by neurosurgery and was recommended conservative management for his T1 fracture and had a Marshall J collar placed. On the morning of 05/29 patient was noted to be minimally responsive with altered mental status. A rapid response team was activated and Stat head CT was ordered and neurology Dr. Hill was consulted by Dr. Walsh from the hospitalist service. Patient was noted to have twitching involving his extremities bilaterally as well as his face and jaw per documentation by Dr. Hill who felt that the patient was having seizures. Patient was given Ativan 1 mg IV as well as loaded with Dilantin 1 g IV stat, and patient was transferred to the ICU. Critical care was consulted by Dr. Walsh and I evaluated the patient immediately on his arrival to the ICU. At that time he was essentially unresponsive with sonorous respirations and O2 sats in the 70s. ABG done earlier revealed PCO2 in the 60s. Patient was not protecting his airway hence decision was made to see with emergent endotracheal intubation and patient was placed on mechanical ventilation. History was obtained by reviewing records and discussion with nursing staff and rapid response team. Off note patient did have a UA done a few days ago and was being treated for UTI with IV Rocephin. 05/30: Sedated, easily arousable, following commands, orally intubated on mechanical ventilation. Tolerating tube feeds overnight. No further seizures noted. Did have low-grade fevers overnight. UA shows budding yeast with hyphae. Objective Vital Signs Date Time Temp Pulse Resp B/P (MAP) Pulse Ox O2 Delivery O2 Flow Rate FiO2 05/30/17 08:55 97 40 05/30/17 08:00 72 05/30/17 08:00 98.8 11 138/71 (93) 05/30/17 07:00 Mechanical Ventilator 05/29/17 11:01 5.00 Intake and Output 05/30/17 05/30/17 05/31/17 08:00 16:00 00:00 Intake Total 788 ml 78 ml Output Total 1250 ml Balance -462 ml 78 ml Result Diagram: 05/30/17 0650 05/30/17 0650 Other Results Laboratory Tests Test 05/29/17 10:05 05/29/17 11:15 05/29/17 12:33 05/29/17 16:00 Blood Gas Puncture Site RT RADIAL RT RADIAL Blood Gas Patient Temperature 98.6 98.6 Blood Gas HCO3 25 mmol/L 25 mmol/L Blood Gas Base Excess -1.8 mmol/L -0.5 mmol/L Blood Gas Oxygen Saturation 88 % 94 % Arterial Blood pH 7.20 7.31 Arterial Blood Partial Pressure CO2 67 mmHg 50 mmHg Arterial Blood Partial Pressure O2 67 mmHg 85 mmHg Arterial Blood Oxygen Content 9.6 Vol % 9.4 Vol % Arterial Blood Carboxyhemoglobin 2.1 % 2.1 % Arterial Blood Methemoglobin 0.6 % 0.8 % Blood Gas Hemoglobin 7.7 G/DL 7.0 G/DL Oxygen Delivery Device NASAL CANNULA VENTILATOR Blood Gas Liter Flow 6 L/M Urine Color YELLOW Urine Turbidity CLOUDY Urine pH 5.5 Urine Specific [place] 1.011 Urine Protein 100 mg/dL Urine Glucose (UA) NEG mg/dL Urine Ketones NEG mg/dL Urine Occult Blood MOD Urine Nitrite NEG Urine Bilirubin NEG Urine Urobilinogen LESS THAN 2.0 MG/DL Urine Leukocyte Esterase LARGE Urine RBC /hpf Urine WBC /hpf Urine WBC Clumps MANY Urine Squamous Epithelial Cells 6 /hpf Urine Bacteria MOD /hpf Urine Yeast with Hyphae MOD Urine Yeast (Budding) FEW Microscopic Urinalysis Comment CATH-CULTURE IND Blood Gas Ventilator Setting AC/RR16/VT550/PEEP5 Blood Gas Inspired Oxygen 50 % White Blood Count 7.4 TH/MM3 Red Blood Count 2.69 MIL/MM3 Hemoglobin 7.2 GM/DL Hematocrit 21.9 % Mean Corpuscular Volume 81.3 FL Mean Corpuscular Hemoglobin 26.6 PG Mean Corpuscular Hemoglobin Concent 32.7 % Red Cell Distribution Width 17.6 % Platelet Count 283 TH/MM3 Mean Platelet Volume 6.2 FL Neutrophils (%) (Auto) 76.8 % Lymphocytes (%) (Auto) 11.7 % Monocytes (%) (Auto) 6.8 % Eosinophils (%) (Auto) 4.1 % Basophils (%) (Auto) 0.6 % Neutrophils # (Auto) 5.6 TH/MM3 Lymphocytes # (Auto) 0.9 TH/MM3 Monocytes # (Auto) 0.5 TH/MM3 Eosinophils # (Auto) 0.3 TH/MM3 Basophils # (Auto) 0.0 TH/MM3 CBC Comment DIFF FINAL Differential Comment Prothrombin Time 11.3 SEC Prothromb Time International Ratio 1.0 RATIO Activated Partial Thromboplast Time 31.0 SEC Fibrinogen 436 mg/dL Total Creatine Kinase 49 U/L Troponin I 0.04 NG/ML Test 05/30/17 06:50 White Blood Count 6.0 TH/MM3 Red Blood Count 2.73 MIL/MM3 Hemoglobin 7.0 GM/DL Hematocrit 22.2 % Mean Corpuscular Volume 81.2 FL Mean Corpuscular Hemoglobin 25.8 PG Mean Corpuscular Hemoglobin Concent 31.7 % Red Cell Distribution Width 17.4 % Platelet Count 288 TH/MM3 Mean Platelet Volume 6.0 FL Neutrophils (%) (Auto) 74.7 % Lymphocytes (%) (Auto) 11.9 % Monocytes (%) (Auto) 7.9 % Eosinophils (%) (Auto) 5.0 % Basophils (%) (Auto) 0.5 % Neutrophils # (Auto) 4.5 TH/MM3 Lymphocytes # (Auto) 0.7 TH/MM3 Monocytes # (Auto) 0.5 TH/MM3 Eosinophils # (Auto) 0.3 TH/MM3 Basophils # (Auto) 0.0 TH/MM3 CBC Comment DIFF FINAL Differential Comment Blood Urea Nitrogen 67 MG/DL Creatinine 3.92 MG/DL Random Glucose 104 MG/DL Total Protein 6.8 GM/DL Albumin 2.0 GM/DL Calcium Level 8.4 MG/DL Alkaline Phosphatase 93 U/L Aspartate Amino Transf (AST/SGOT) 30 U/L Alanine Aminotransferase (ALT/SGPT) 20 U/L Total Bilirubin 0.3 MG/DL Sodium Level 142 MEQ/L Potassium Level 4.8 MEQ/L Chloride Level 106 MEQ/L Carbon Dioxide Level 28.6 MEQ/L Anion Gap 7 MEQ/L Estimat Glomerular Filtration Rate 16 ML/MIN Imaging Last Impressions Head CT 05/29/17 0000 Signed Impressions: Service Date/Time: May 08:42 - CONCLUSION: 1. No acute infarct, acute hemorrhage, midline shift or extra-axial fluid collections. 2. Mucous retention cyst within the right maxillary sinus. 3. Nasal septal deviation to the right. Denilson Strickland MD Chest X-Ray 05/29/17 0000 Signed Impressions: Service Date/Time: May 11:15 - CONCLUSION: 1. ET tube in good position. 2. Bibasilar atelectasis. 3. No pneumothorax. Leonardo Avendano MD Femur X-Ray 05/25/17 1359 Signed Impressions: Service Date/Time: Thursday, May 25, 2017 14:32 - CONCLUSION: No acute disease. Charanjit Orr MD Lumbar Spine X-Ray 05/25/17 0351 Signed Impressions: Service Date/Time: Thursday, May 25, 2017 04:30 - CONCLUSION: Chronic appearing findings as above. No fracture or acute-appearing malalignment demonstrated of the lumbar spine. Mario Moreno MD Cervical Spine CT 05/25/17 035 Signed Impressions: Service Date/Time: Thursday, May 25, 2017 04:11 - CONCLUSION: 1. Nondisplaced fracture with mild compression deformity of T1 vertebral body, probably acute. No epidural hematoma or retropulsed fracture fragments. 2. Other findings appear chronic and please see above. Mario Moreno MD Wrist X-Ray 05/25/17 0000 Signed Impressions: Service Date/Time: Thursday, May 25, 2017 04:33 - CONCLUSION: 1. There is soft tissue swelling but I don't see an acute fracture or subluxation of the right wrist. 2. Chronic appearing destruction of the lunate and scaphoid, nonspecific but possibly related to old trauma or chronic arthropathy. Mario Moreno MD Hip and Pelvis X-Ray 05/25/17 0000 Signed Impressions: Service Date/Time: Thursday, May 25, 2017 04:22 - CONCLUSION: Pelvis and left hip are intact. Mario Moreno MD Abdomen/Pelvis CT 05/25/17 0000 Signed Impressions: Service Date/Time: Thursday, May 25, 2017 05:55 - CONCLUSION: 1. No visceral organ injury, fracture or other acute abnormality. 2. Degenerative changes of the lumbar spine, both hips and the pubic symphysis. There is considerable end plate irregularity at L4/L5, presumably reactive/degenerative but chronic discitis or the sequela of previous discitis could have a similar appearance. 3. Findings related to polycystic kidney disease with innumerable variable sized cysts throughout the liver and both kidneys noted. 4. Scattered sub-5 mm nonobstructing stones in both kidneys. 5. Nonspecific hepatosplenomegaly. Mario Moreno MD Objective Remarks HEENT/ Neuro: Sedated, arousable, orally intubated, pupils bilaterally constricted 2 mm reactive to light Pallor present, no icterus, tongue/ mucosa moist Neck: Marshall J collar in place Chest/Pulm: on mech vent, good air entry bilaterally, scattered rhonchi, no wheezing or crackles CVS: S1-S2 regular, no murmur GI/abdomen: soft, nontender, bowel sounds sluggish Extremities: warm bilaterally, no edema A/P Assessment and Plan 57-year-old male with: Encephalopathy Suspected seizure Aspiration pneumonia Acute respiratory failure requiring mechanical ventilation UTI T1 fracture Diabetes mellitus CKD due to polycystic kidney disease Hypertension Chronic pain from L4/L5 COPD/asthma Anxiety disorder Iron deficiency anemia Polycystic liver disease Hyperlipidemia Plan: Neuro: Intubated for airway protection and hypoxia. Follow neuro status. Sedation with propofol. Daily sedation vacation and if neuro status improved will consider extubation. Loaded with Dilantin 1 g. We'll continue Dilantin 100 mg IV every 8 hourly. Follow free Dilantin level - pending. Neurology consult noted. Follow up EEG. Decrease gabapentin dose in view of renal failure to 100 mg twice a day (from 300 mg twice a day). Continue buspar. Cardiovascular: IV hydration, watch for hypotension. Continue amlodipine. Pulmonary: Continue mechanical ventilation, vent bundle, bronchodilators as needed. Started C Pap trials to decide extubation as neuro status seems to have improved and patient is following commands on lightening sedation.. GI/liver: Tolerating feeds with Glucerna 1.5, to be held for possible extubation Renal/: IV hydration, strict intake output, monitor and replete electro lites , follow BUN creatinine. Consult nephrology as BUN creatinine rising. Given Kayexalate 30 g via OG tube 2 doses on 05/30 in view of hyperkalemia. Continue cardura. ID: Panculture as ordered. Broadened antibiotic coverage from Rocephin to IV Zosyn in view of suspected aspiration. Consulted ID for sepsis/UTI/pneumonia for workup/antibiotic management in renal failure patient. UA shows budding yeast with hyphae, discussed with Dr. Lai - will decide regarding starting antifungal therapy after evaluating patient. Endocrine: SSI for glycemic control as needed. Heme: Follow CBC. Continue ferrous sulfate. Elevated MCV noted. Patient is on B-12 and folic acid. Prophylaxis: PPI/SCDs/subcutaneous heparin. Condition critical. Time spent on critical care excluding procedures 30 minutes Duran Carson MD May 30, 2017 09:28
[2017-05-30] MEDS: PRAVASTATIN SOD 40 MG TAB PO SCH (10:25)
[2017-05-30] MEDS: SODIUM CHLORIDE 0.9% FLUSH 10 ML FLUSH IV FLUSH SCH ×2 (10:26→20:25)
[2017-05-30] MEDS: busPIRone HCL 10 MG TAB PO SCH ×3 (10:26→17:37)
[2017-05-30] MEDS: amLODIPine BESYLATE 5 MG TAB PO SCH (10:26)
[2017-05-30] MEDS: DOCUSATE SODIUM 50 MG/SENNA 8.6 MG TAB PO SCH ×2 (10:26→20:24)
[2017-05-30] MEDS: FERROUS SULFATE 325 MG (65 MG ELEMENTAL IRON) TAB PO SCH ×2 (10:26→20:24)
[2017-05-30] MEDS: GABAPENTIN 100 MG CAP PO SCH ×2 (10:26→20:24)
--- NOTE | 2017-05-30 10:27 | PD.CONS ---
History of Present Illness Service Infectious disease Consult Requested By Dr Farzana Carson Reason for Consult Evaluate patient with sepsis Primary Care Physician [facility] Diagnoses: History of Present Illness Patient seen and examined. Records reviewed. 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 He immediately had an acute onset of back pain and left hip pain. He went to bed the night of admission, and the pain worsened that he couldn't get up. Patient was taken to the hospital by EMS. His initial chest x-ray showed a nondisplaced C1 fracture. He was also complaining of pain in the neck. Patient was seen by neurosurgery, and no surgical intervention was required. A cervical collar was placed. Last night patient became unresponsive and was noted to have seizures. He was transferred to the intensive care unit and got intubated. CT of the head was negative. Neurology saw the patient, and patient currently is on anticonvulsant regimen. There has been no recurrent seizures since. He was successfully extubated today. Howell catheter was inserted when he got intubated, and his urine was very purulent. Patient has been on antibiotics since admission. His antibiotic was changed yesterday. He had some low-grade temps last night. Chest x-ray showing basilar atelectasis bilaterally when he got intubated. Patient also underwent CT of the abdomen and pelvis when he initially presented, and there was no intra-abdominal injuries seen, he has evidence of cystic disease in the liver and kidney, and he has nonobstructing kidney stones. Infectious disease consultation has been requested to evaluate the patient. Review of Systems Constitutional: COMPLAINS OF: Fever Eyes: DENIES: Eye pain Ears, nose, mouth, throat: DENIES: Nasal discharge, Oral lesions, Throat pain, Running Nose Respiratory: DENIES: Cough, Shortness of breath Cardiovascular: COMPLAINS OF: Lower Extremity Edema, DENIES: Chest pain Gastrointestinal: DENIES: Abdominal pain, Nausea, Vomiting, Difficulty Swallowing Musculoskeletal: COMPLAINS OF: Back pain, Neck pain Integumentary: DENIES: Rash Neurologic: DENIES: Headache Psychiatric: DENIES: Hallucinations Past Family Social History Allergies: Coded Allergies: No Known Allergies (Unverified , 10/01/16) Past Medical History Umbilical hernia Hypertension Chronic pain from L4/L5 COPD/asthma Anxiety disorder Iron deficiency anemia Polycystic kidney disease Polyp cystic liver disease Hyperlipidemia Type 2 diabetes Past Surgical History Right wrist surgery Bilateral knee arthroscopy Active Ordered Medications Tylenol Albuterol Norvasc Dulcolax BuSpar Cardura Ferrous sulfate Neurontin Insulin Lactulose MOM Zofran Percocet Dilantin Zosyn Pravachol Diprivan [place]-Colace Senokot Family History Unremarkable Social History He smokes about half a pack per day. Denies any alcohol Denies illicit drug use. 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 Physical Exam Vital Signs Vital Signs Date Time Temp Pulse Resp B/P (MAP) Pulse Ox O2 Delivery O2 Flow Rate FiO2 05/30/17 09:53 93 Nasal Cannula 3.00 05/30/17 09:25 93 Nasal Cannula 3 05/30/17 08:55 97 40 05/30/17 08:05 97 40 05/30/17 08:05 40 05/30/17 08:00 50 05/30/17 08:00 72 05/30/17 08:00 98.8 72 11 138/71 (93) 99 05/30/17 07:00 98 Mechanical Ventilator 50 05/30/17 04:26 96 50 05/30/17 04:00 77 05/30/17 04:00 97.8 77 18 155/76 (102) 98 05/30/17 04:00 50 05/30/17 02:00 76 05/30/17 01:22 98 50 05/30/17 00:00 98.4 68 18 137/68 (91) 99 05/30/17 00:00 68 05/30/17 00:00 50 05/29/17 22:00 70 05/29/17 20:50 98 50 05/29/17 20:00 70 05/29/17 20:00 50 05/29/17 20:00 99 Mechanical Ventilator 50 05/29/17 20:00 98.6 70 18 133/71 (91) 99 05/29/17 17:08 98 50 05/29/17 12:00 100.0 82 18 107/56 (73) 97 05/29/17 11:10 96 50 05/29/17 11:01 92 Nasal Cannula 5.00 05/29/17 11:01 92 5.00 Physical Exam GENERAL: Patient is a well-nourished, well-developed male, very restless currently due to severe back pain, awake and alert, not in respiratory distress. SKIN: Warm and dry. No generalized rash, no ecchymoses and no evidence of embolic lesions. HEAD: Atraumatic. Normocephalic. No temporal wasting, or tenderness. EYES: [place] conjunctiva. No petechia or hemorrhage. Pupils equal, round and reactive to light. Extraocular movements full and intact. No scleral icterus. No injection or drainage. EARS, NOSE AND THROAT: Nose without bleeding or purulent nasal discharge. No sinus tenderness. Has very dry oral mucosa. Has mild seborrheic dermatitis NECK: Wearing a cervical collar CARDIOVASCULAR: Soft heart sounds, limited exam due to diffuse rhonchi RESPIRATORY: Has diffuse rhonchi ABDOMEN: Distended, bowel sounds present and normoactive, ,not tender. No guarding. No rebound. Has a large umbilical hernia EXTREMITIES: No clubbing, cyanosis. Has bilateral pedal edema. No calf tenderness. Well perfused and warm. NEUROLOGICAL: Awake and alert. Cranial nerves grossly intact. Difficulty examining lower extremity due to severe back pain PSYCHIATRIC: Restless LINE: No evidence of infection : Howell in place, with grossly purulent urine Laboratory Laboratory Tests Test 05/29/17 11:15 05/29/17 12:33 05/29/17 16:00 05/30/17 06:50 Urine Color YELLOW Urine Turbidity CLOUDY Urine pH 5.5 Urine Specific [place] 1.011 Urine Protein 100 Urine Glucose (UA) NEG Urine Ketones NEG Urine Occult Blood MOD Urine Nitrite NEG Urine Bilirubin NEG Urine Urobilinogen LESS THAN 2.0 Urine Leukocyte Esterase LARGE Urine RBC Urine WBC Urine WBC Clumps MANY Urine Squamous Epithelial Cells 6 Urine Bacteria MOD Urine Yeast with Hyphae MOD Urine Yeast (Budding) FEW Microscopic Urinalysis Comment CATH-CULTURE IND Blood Gas Puncture Site RT RADIAL Blood Gas Patient Temperature 98.6 Blood Gas HCO3 25 Blood Gas Base Excess -0.5 Blood Gas Oxygen Saturation 94 Arterial Blood pH 7.31 Arterial Blood Partial Pressure CO2 50 Arterial Blood Partial Pressure O2 85 Arterial Blood Oxygen Content 9.4 Arterial Blood Carboxyhemoglobin 2.1 Arterial Blood Methemoglobin 0.8 Blood Gas Hemoglobin 7.0 Oxygen Delivery Device VENTILATOR Blood Gas Ventilator Setting AC/RR16/VT550/PEEP5 Blood Gas Inspired Oxygen 50 White Blood Count 7.4 6.0 Red Blood Count 2.69 2.73 Hemoglobin 7.2 7.0 Hematocrit 21.9 22.2 Mean Corpuscular Volume 81.3 81.2 Mean Corpuscular Hemoglobin 26.6 25.8 Mean Corpuscular Hemoglobin Concent 32.7 31.7 Red Cell Distribution Width 17.6 17.4 Platelet Count 283 288 Mean Platelet Volume 6.2 6.0 Neutrophils (%) (Auto) 76.8 74.7 Lymphocytes (%) (Auto) 11.7 11.9 Monocytes (%) (Auto) 6.8 7.9 Eosinophils (%) (Auto) 4.1 5.0 Basophils (%) (Auto) 0.6 0.5 Neutrophils # (Auto) 5.6 4.5 Lymphocytes # (Auto) 0.9 0.7 Monocytes # (Auto) 0.5 0.5 Eosinophils # (Auto) 0.3 0.3 Basophils # (Auto) 0.0 0.0 CBC Comment DIFF FINAL DIFF FINAL Differential Comment Prothrombin Time 11.3 Prothromb Time International Ratio 1.0 Activated Partial Thromboplast Time 31.0 Fibrinogen 436 Total Creatine Kinase 49 Troponin I 0.04 Blood Urea Nitrogen 67 Creatinine 3.92 Random Glucose 104 Total Protein 6.8 Albumin 2.0 Calcium Level 8.4 Alkaline Phosphatase 93 Aspartate Amino Transf (AST/SGOT) 30 Alanine Aminotransferase (ALT/SGPT) 20 Total Bilirubin 0.3 Sodium Level 142 Potassium Level 4.8 Chloride Level 106 Carbon Dioxide Level 28.6 Anion Gap 7 Estimat Glomerular Filtration Rate 16 Date/Time Source Procedure Growth Status 05/25/17 08:00 Blood Peripheral Aerobic Blood Culture - Preliminary NO GROWTH IN 4 DAYS Resulted 05/25/17 08:00 Blood Peripheral Anaerobic Blood Culture - Preliminary NO GROWTH IN 4 DAYS Resulted 05/29/17 11:00 Sputum Endotracheal Gram Stain - Final Resulted 05/29/17 11:00 Sputum Endotracheal Sputum Culture Pending Resulted 05/29/17 11:15 Urine Catheterized Urine Urine Culture Pending Received Result Diagram: 05/30/17 0650 05/30/17 0650 Imaging RADIOLOGY STUDIES/FILMS REVIEWED Last Impressions Head CT 05/29/17 0000 Signed Impressions: Service Date/Time: May 08:42 - CONCLUSION: 1. No acute infarct, acute hemorrhage, midline shift or extra-axial fluid collections. 2. Mucous retention cyst within the right maxillary sinus. 3. Nasal septal deviation to the right. Denilson Strickland MD Chest X-Ray 05/29/17 0000 Signed Impressions: Service Date/Time: May 11:15 - CONCLUSION: 1. ET tube in good position. 2. Bibasilar atelectasis. 3. No pneumothorax. Leonardo Avendano MD Femur X-Ray 05/25/17 1359 Signed Impressions: Service Date/Time: Thursday, May 25, 2017 14:32 - CONCLUSION: No acute disease. hCaranjit Orr MD Lumbar Spine X-Ray 05/25/17 0351 Signed Impressions: Service Date/Time: Thursday, May 25, 2017 04:30 - CONCLUSION: Chronic appearing findings as above. No fracture or acute-appearing malalignment demonstrated of the lumbar spine. Mario Moreno MD Cervical Spine CT 05/25/17 0351 Signed Impressions: Service Date/Time: Thursday, May 25, 2017 04:11 - CONCLUSION: 1. Nondisplaced fracture with mild compression deformity of T1 vertebral body, probably acute. No epidural hematoma or retropulsed fracture fragments. 2. Other findings appear chronic and please see above. Mario Moreno MD Wrist X-Ray 05/25/17 0000 Signed Impressions: Service Date/Time: Thursday, May 25, 2017 04:33 - CONCLUSION: 1. There is soft tissue swelling but I don't see an acute fracture or subluxation of the right wrist. 2. Chronic appearing destruction of the lunate and scaphoid, nonspecific but possibly related to old trauma or chronic arthropathy. Mario Moreno MD Hip and Pelvis X-Ray 05/25/17 0000 Signed Impressions: Service Date/Time: Thursday, May 25, 2017 04:22 - CONCLUSION: Pelvis and left hip are intact. Mario Moreno MD Abdomen/Pelvis CT 05/25/17 0000 Signed Impressions: Service Date/Time: Thursday, May 25, 2017 05:55 - CONCLUSION: 1. No visceral organ injury, fracture or other acute abnormality. 2. Degenerative changes of the lumbar spine, both hips and the pubic symphysis. There is considerable end plate irregularity at L4/L5, presumably reactive/degenerative but chronic discitis or the sequela of previous discitis could have a similar appearance. 3. Findings related to polycystic kidney disease with innumerable variable sized cysts throughout the liver and both kidneys noted. 4. Scattered sub-5 mm nonobstructing stones in both kidneys. 5. Nonspecific hepatosplenomegaly. Mario Moreno MD Assessment and Plan Assessment and Plan IMPRESSION Sepsis, likely due to source - ?had urinary retention - S/P respiratory failure, CXR with basilar atelectasis Known COPD, smoker, prob with chronic bronchitis Seizure, etiology? Mild T1 compression fracture Cervical spondylosis Polycystic kidney disease CKD, ?worsened by retention RECOMMENDATION Continue Zosyn Add Diflucan Renal US to check for hydro since his creatinine had increased Follow C/S and adjust Abx Monitor progress I will follow along with you Thank you for this consultation Discussed Condition With D/W RN D/W Dr Carson ([facility]) Sunita Lai MD May 30, 2017 10:27
[2017-05-30] MEDS: FLUCONAZOLE 400 MG PREMIX BAG 200 ML IV SCH (11:51)
[2017-05-30] MEDS: oxyCODONE/ACETAMINOPHEN 10 MG/325 MG TAB PO PRN ×3 (11:51→23:31)
[2017-05-30 11:53] LABS: CALCIUM-PROTEIN CORRECTED 8.6 MG/DL (8.5-10.1)
--- NOTE | 2017-05-30 13:17 | RADRPT ---
EXAM DATE/TIME: 05/30/2017 12:12 [place] COMPARISON: CT ABDOMEN & PELVIS W/O CONTRAST, May 25, 2017, 5:55. INDICATIONS : Worsening renal function, UTI. MEDICAL HISTORY : Hypertension. Chronic obstructive pulmonary disease. Arthritis. Diabetes. Polycystic liver and kidn eys. SURGICAL HISTORY : Bilateral knee surgery. Right wrist surgery. ENCOUNTER: Initial ACUITY: 1 day PAIN SCORE: 0/10 LOCATION: Bilateral flank MEASUREMENTS: RIGHT KIDNEY: 17.7 x 8.6 x 10.2 cm LEFT KIDNEY: 20.1 x 8.0 x 10.1 cm FINDINGS: RIGHT KIDNEY: Echogenic kidney essentially replaced by simple and complicated cysts. No evidence of hydronephrosis. LEFT KIDNEY: Echogenic kidney essentially replaced by simple and complicated cysts. No evidence of hydronephrosis BLADDER: Decompressed with Howell catheter present. CONCLUSION: End-stage polycystic kidneys Mario Lam MD on May 30, 2017 at 13:05 Board Certified Radiologist. This report was verified electronically.
--- NOTE | 2017-05-30 17:26 | HHI.PR ---
Review/Management Daily Summary 05/30 EEG yesterday seen, nonepileptiform having a lot of asterixis more responsive nonfocal motor mod to severe asretixis probably all met encephalopathy d/c dilantin and buspar as well gabapentin reduced Subjective Subjective Comments extubated, verbal and worried about his mom Active Medications Current Medications Medications (Trade) Dose Ordered Sig/Mian Route Start Time Stop Time Status Last Admin (NS Flush) 2 ml BID IV FLUSH 05/25/17 09:00 05/30/17 10:26 (NS Flush) 2 ml UNSCH PRN IVF 05/25/17 07:30 (Tylenol) 650 mg Q4H PRN PO 05/25/17 08:45 (Zofran Inj) 4 mg Q6H PRN IVP 05/25/17 08:45 (Narcan Inj) 0.4 mg UNSCH PRN IV 05/25/17 08:45 ([place]-Colace) 1 tab BID PO 05/25/17 10:00 05/30/17 10:26 (Milk Of Magnesia Liq) 30 ml Q12H PRN PO 05/25/17 08:45 05/26/17 20:51 (Senokot) 17.2 mg Q12H PRN PO 05/25/17 08:45 (Dulcolax Supp) 10 mg DAILY PRN RECTAL 05/25/17 08:45 (Lactulose Liq) 30 ml DAILY PRN PO 05/25/17 08:45 (Duoneb Neb) 1 ampule Q2HR NEB PRN NEB 05/25/17 08:45 (D50w (Vial) Inj) 50 ml UNSCH PRN IV 05/25/17 08:45 (Glucagon Inj) 1 mg UNSCH PRN OTHER 05/25/17 08:45 (Norvasc) 2.5 mg DAILY PO 05/25/17 13:30 05/30/17 10:26 (Buspar) 10 mg TID PO 05/25/17 18:00 05/30/17 13:30 (Cardura) 4 mg HS PO 05/25/17 21:00 05/29/17 20:28 (Pravachol) 40 mg DAILY PO 05/26/17 09:00 05/30/17 10:25 (Ferrous Sulfate) 325 mg BID PO 05/25/17 21:00 05/30/17 10:26 (Pill Splitter) 1 ea UNSCH PRN OTHER 05/25/17 13:45 05/30/17 11:51 (Peridex 0.12% Liq) 15 ml BID@08,20 MT 05/29/17 20:00 05/29/17 20:30 Propofol 100 ml @ 3 mls/hr TITRATE PRN IV 05/29/17 11:15 05/30/17 06:30 (Neurontin) 100 mg BID PO 05/29/17 21:00 05/30/17 10:26 (NovoLOG SUPPLEMENTAL SCALE) 1 Q6HR SQ 05/29/17 12:00 Piperacillin Sod/ Tazobactam Sod 50 ml @ 100 mls/hr Q6H IV 05/29/17 20:00 05/30/17 13:41 (Duoneb Neb) 1 ampule Q6HR NEB NEB 05/29/17 17:45 05/30/17 09:03 (Duoneb Neb) 1 ampule Q2HR NEB PRN NEB 05/29/17 17:45 Fluconazole/ Sodium Chloride 200 ml @ 100 mls/hr Q24H IV 05/30/17 11:00 05/30/17 11:51 (Percocet 10-325 Mg) 1 tab Q4H PRN PO 05/30/17 11:00 05/30/17 15:51 Allergies Allergies Coded Allergies No Known Allergies (Unverified10/01/16) Exam I&O / VS 05/30/17 05/30/17 05/31/17 15:00 23:00 07:00 Intake Total 357 ml Balance 357 ml IV Total 357 ml Vital Signs Date Time Temp Pulse Resp B/P (MAP) Pulse Ox O2 Delivery O2 Flow Rate FiO2 05/30/17 16:00 50 05/30/17 16:00 98.4 84 15 165/79 (107) 96 05/30/17 16:00 84 05/30/17 14:00 84 05/30/17 12:00 50 05/30/17 12:00 84 05/30/17 12:00 98.6 84 14 174/87 (116) 92 05/30/17 10:00 85 05/30/17 09:53 93 Nasal Cannula 3.00 05/30/17 09:25 93 Nasal Cannula 3 05/30/17 08:55 97 40 05/30/17 08:05 97 40 05/30/17 08:05 40 05/30/17 08:00 50 05/30/17 08:00 72 05/30/17 08:00 98.8 72 11 138/71 (93) 99 05/30/17 07:00 98 Mechanical Ventilator 50 05/30/17 04:26 96 50 05/30/17 04:00 77 05/30/17 04:00 97.8 77 18 155/76 (102) 98 05/30/17 04:00 50 05/30/17 02:00 76 05/30/17 01:22 98 50 05/30/17 00:00 98.4 68 18 137/68 (91) 99 05/30/17 00:00 68 05/30/17 00:00 50 05/29/17 22:00 70 05/29/17 20:50 98 50 05/29/17 20:00 70 05/29/17 20:00 50 05/29/17 20:00 99 Mechanical Ventilator 50 05/29/17 20:00 98.6 70 18 133/71 (91) 99 Objective Micro and Labs Laboratory Tests Test 05/30/17 06:50 White Blood Count 6.0 Red Blood Count 2.73 Hemoglobin 7.0 Hematocrit 22.2 Mean Corpuscular Volume 81.2 Mean Corpuscular Hemoglobin 25.8 Mean Corpuscular Hemoglobin Concent 31.7 Red Cell Distribution Width 17.4 Platelet Count 288 Mean Platelet Volume 6.0 Neutrophils (%) (Auto) 74.7 Lymphocytes (%) (Auto) 11.9 Monocytes (%) (Auto) 7.9 Eosinophils (%) (Auto) 5.0 Basophils (%) (Auto) 0.5 Neutrophils # (Auto) 4.5 Lymphocytes # (Auto) 0.7 Monocytes # (Auto) 0.5 Eosinophils # (Auto) 0.3 Basophils # (Auto) 0.0 CBC Comment DIFF FINAL Differential Comment Blood Urea Nitrogen 67 Creatinine 3.92 Random Glucose 104 Total Protein 6.8 Albumin 2.0 Calcium Level 8.4 Alkaline Phosphatase 93 Aspartate Amino Transf (AST/SGOT) 30 Alanine Aminotransferase (ALT/SGPT) 20 Total Bilirubin 0.3 Sodium Level 142 Potassium Level 4.8 Chloride Level 106 Carbon Dioxide Level 28.6 Anion Gap 7 Estimat Glomerular Filtration Rate 16 Protein Corrected Calcium 8.6 Date/Time Source Procedure Growth Status 05/25/17 08:00 Blood Peripheral Aerobic Blood Culture - Final NO GROWTH IN 5 DAYS Complete 05/25/17 08:00 Blood Peripheral Anaerobic Blood Culture - Final NO GROWTH IN 5 DAYS Complete 05/29/17 11:00 Sputum Endotracheal Gram Stain - Final Resulted 05/29/17 11:00 Sputum Endotracheal Sputum Culture - Preliminary IMMATURE GROWTH - REINCUBATE Resulted 05/29/17 11:15 Urine Catheterized Urine Urine Culture - Final Irina Albicans Complete Rufino Hill MD May 30, 2017 17:26
--- NOTE | 2017-05-30 17:49 | HHI.NSPN ---
(Vamsi Pino) History Chief Complaint: No complaints. (Vamsi Pino) Interval History 05/25: 57-year-old male was helping his mother down some stairs on Friday morning 06/03/17 when they both fell. He had immediate onset of back and left hip and groin pain. He went to bed last evening and the pain continued to increase. He was brought to the emergency room per EMS today. His initial x- rays revealed a T1 nondisplaced fracture. He complains of neck pain as well as rather severe left lateral hip pain with radiation to the left lateral hip and thigh. He complains of mild numbness in the left anterior thigh. No bowel or bladder dysfunction. He does have a history of chronic back pain. States he has had abnormalities at the L4-5 level. Has had previous episodes of sciatica. 05/26: Patient is asleep but awakens to verbal stimulation. He is alert and interactive after that. His major complaint is pain to the left hip and thigh which causes him not to be able to get up. He does state he has some pain to the upper back/lower neck. He has the [employer] cervical collar in place but the front half is off. 05/27: The patient is doing well this afternoon. He is sitting up in a chair with a lumbar support in place. He complains of numbness to the left calf and weakness to the left foot. 05/28: This afternoon the patient is sitting in the chair doing a breathing treatment when seen. He does have the DxNA[place] J cervical collar and a lumbar brace in place. He states that he has weakness to both knees and the right wrist after surgery which is chronic. 05/29: Per Nursing the patient became nonresponsive and had a seizure this morning and was started on phenytoin. He was subsequently transferred to [facility] where he had hypoxic respiratory failure and was intubated. He is sedated on propofol. 05/30: The patient is extubated when seen this afternoon. He states that he is doing good and has no neck pain. (Vamsi Pino) System Review Comments Constitutional: Patient denies any fever or chills. HEENT: Patient denies any visual or hearing difficulty. Respiratory: Patient denies any shortness of breath or productive cough. Cardiovascular: Patient denies any chest pain, palpitations or irregular heartbeat. Gastrointestinal: Patient denies any abdominal pain, nausea, vomiting or incontinence of stool. Genitourinary: Patient states he has a Howell catheter in place. Musculoskeletal: Patient denies any pain to the neck, back or extremities. Neurologic: Patient denies any headache, dizziness, numbness or tingling. (Vamsi Pino) Exam Results 05/28/17 05/28/17 05/29/17 05/29/17 05/30/17 05/30/17 06:00 18:00 06:00 18:00 06:00 18:00 Intake Total 240 ml 340 ml 690 ml 0 ml 986 ml 407 ml Output Total 300 ml 1000 ml 450 ml 300 ml 1250 ml Balance -60 ml -660 ml 240 ml -300 ml -264 ml 407 ml Intake Oral 240 ml 240 ml 690 ml 0 ml 0 ml IV Total 100 ml 344 ml 407 ml Tube Feeding 402 ml Other 240 ml Output Urine Total 300 ml 1000 ml 450 ml 300 ml 1250 ml Tube Feeding Residual Discard 0 ml # Voids 3 # Bowel Movements 0 0 0 0 Vital Signs Date Time Temp Pulse Resp B/P (MAP) Pulse Ox O2 Delivery O2 Flow Rate FiO2 05/30/17 16:00 50 05/30/17 16:00 98.4 84 15 165/79 (107) 96 05/30/17 16:00 84 05/30/17 14:00 84 05/30/17 12:00 50 05/30/17 12:00 84 05/30/17 12:00 98.6 84 14 174/87 (116) 92 05/30/17 10:00 85 05/30/17 09:53 93 Nasal Cannula 3.00 05/30/17 09:25 93 Nasal Cannula 3 05/30/17 08:55 97 40 05/30/17 08:05 97 40 05/30/17 08:05 40 05/30/17 08:00 50 05/30/17 08:00 72 05/30/17 08:00 98.8 72 11 138/71 (93) 99 05/30/17 07:00 98 Mechanical Ventilator 50 05/30/17 04:26 96 50 05/30/17 04:00 77 05/30/17 04:00 97.8 77 18 155/76 (102) 98 05/30/17 04:00 50 05/30/17 02:00 76 05/30/17 01:22 98 50 05/30/17 00:00 98.4 68 18 137/68 (91) 99 05/30/17 00:00 68 05/30/17 00:00 50 05/29/17 22:00 70 05/29/17 20:50 98 50 05/29/17 20:00 70 05/29/17 20:00 50 05/29/17 20:00 99 Mechanical Ventilator 50 05/29/17 20:00 98.6 70 18 133/71 (91) 99 05/29/17 17:08 98 50 05/29/17 12:00 100.0 82 18 107/56 (73) 97 05/29/17 11:10 96 50 05/29/17 11:01 92 Nasal Cannula 5.00 05/29/17 11:01 92 5.00 05/29/17 08:00 100.5 108 18 155/78 (103) 92 05/29/17 07:32 Nasal Cannula 4.00 05/29/17 04:00 96.4 92 19 188/82 (117) 94 05/29/17 02:00 Nasal Cannula 2.00 Humidified 05/29/17 00:00 99.0 92 17 166/78 (107) 94 05/28/17 23:57 18 05/28/17 23:57 18 05/28/17 20:19 92 Nasal Cannula 3.00 05/28/17 19:39 97.1 90 19 155/74 (101) 94 05/28/17 15:33 97.8 90 19 154/64 (94) 95 05/28/17 11:24 90 Nasal Cannula 2.00 05/28/17 10:50 97.4 79 19 131/67 (88) 92 05/28/17 06:50 97.8 110 21 154/95 (114) 93 05/28/17 02:50 98.5 92 20 173/96 (121) 93 05/27/17 22:50 97.6 88 19 163/78 (106) 95 05/27/17 18:50 97.4 84 18 158/80 (106) 95 (Vamsi Pino) Physical Examination GENERAL: Patient awake & alert and readily interacts. Affect essentially normal. No apparent distress. SKIN: Warm, dry & intact w/o any rashes, ulceration or other lesions noted. HEENT: Normocephalic, atraumatic. NECK: [place] J cervical collar in place, midline cervical spine & thoracolumbar junction NTTP, no JVD, trachea midline. CARDIOVASCULAR: S1S2 w/RRR w/o M/G/R, radial & pedal pulses 2+ bilaterally, cap refill < 2 sec. Monitor is sinus rhythm w/o any ectopy noted. RESPIRATORY: Coarse bilaterally, equal excursion, nonlaboured, on NC. GASTROINTESTINAL: Abdomen soft, positive bowel sounds, umbilical hernia soft. GENITOURINARY: Howell catheter to BSD. MUSCULOSKELETAL: Chronic deformity in the right wrist and thumb, extremities NTTP. Upper thoracic spine NTTP. NEUROLOGICAL: AAOx3. Speech clear & appropriate. Sensation intact to light touch to all extremities. Motor strength 5/5 to all major flexion & extension muscle groups except unable to ascertain hand intrinsics & extrinsics bilaterally due to patient continually to clasp with his hand. (Vamsi Pino) Lab, Micro, Other Results Recent Impressions Renal Ultrasound 05/30/17 0000 Signed Impressions: Service Date/Time: Tuesday, May 30, 2017 12:12 - CONCLUSION: End-stage polycystic kidneys Mario Lam MD Head CT 05/29/17 0000 Signed Impressions: Service Date/Time: May 08:42 - CONCLUSION: 1. No acute infarct, acute hemorrhage, midline shift or extra-axial fluid collections. 2. Mucous retention cyst within the right maxillary sinus. 3. Nasal septal deviation to the right. Denilson Strickland MD Chest X-Ray 05/29/17 0000 Signed Impressions: Service Date/Time: May 11:15 - CONCLUSION: 1. ET tube in good position. 2. Bibasilar atelectasis. 3. No pneumothorax. Leonardo Avendano MD Laboratory Tests Test 05/28/17 09:09 05/29/17 06:48 05/29/17 10:05 05/29/17 11:15 White Blood Count 8.8 TH/MM3 10.5 TH/MM3 Red Blood Count 2.90 MIL/MM3 3.17 MIL/MM3 Hemoglobin 7.7 GM/DL 8.2 GM/DL Hematocrit 23.6 % 25.9 % Mean Corpuscular Volume 81.3 FL 81.8 FL Mean Corpuscular Hemoglobin 26.6 PG 25.9 PG Mean Corpuscular Hemoglobin Concent 32.8 % 31.6 % Red Cell Distribution Width 17.5 % 17.2 % Platelet Count 272 TH/MM3 336 TH/MM3 Mean Platelet Volume 6.0 FL 6.2 FL Blood Urea Nitrogen 58 MG/DL 57 MG/DL Creatinine 3.30 MG/DL 3.57 MG/DL Random Glucose 80 MG/DL 79 MG/DL Calcium Level 7.9 MG/DL 9.0 MG/DL Sodium Level 137 MEQ/L 136 MEQ/L Potassium Level 5.2 MEQ/L 5.1 MEQ/L Chloride Level 103 MEQ/L 103 MEQ/L Carbon Dioxide Level 28.2 MEQ/L 26.7 MEQ/L Anion Gap 6 MEQ/L 6 MEQ/L Estimat Glomerular Filtration Rate 20 ML/MIN 18 ML/MIN Neutrophils (%) (Auto) 81.2 % Lymphocytes (%) (Auto) 8.4 % Monocytes (%) (Auto) 6.0 % Eosinophils (%) (Auto) 3.8 % Basophils (%) (Auto) 0.6 % Neutrophils # (Auto) 8.6 TH/MM3 Lymphocytes # (Auto) 0.9 TH/MM3 Monocytes # (Auto) 0.6 TH/MM3 Eosinophils # (Auto) 0.4 TH/MM3 Basophils # (Auto) 0.1 TH/MM3 CBC Comment DIFF FINAL Differential Comment Total Protein 7.7 GM/DL Albumin 2.5 GM/DL Alkaline Phosphatase 163 U/L Aspartate Amino Transf (AST/SGOT) 33 U/L Alanine Aminotransferase (ALT/SGPT) 22 U/L Total Bilirubin 0.4 MG/DL Total Creatine Kinase 72 U/L Blood Gas Puncture Site RT RADIAL Blood Gas Patient Temperature 98.6 Blood Gas HCO3 25 mmol/L Blood Gas Base Excess -1.8 mmol/L Blood Gas Oxygen Saturation 88 % Arterial Blood pH 7.20 Arterial Blood Partial Pressure CO2 67 mmHg Arterial Blood Partial Pressure O2 67 mmHg Arterial Blood Oxygen Content 9.6 Vol % Arterial Blood Carboxyhemoglobin 2.1 % Arterial Blood Methemoglobin 0.6 % Blood Gas Hemoglobin 7.7 G/DL Oxygen Delivery Device NASAL CANNULA Blood Gas Liter Flow 6 L/M Urine Color YELLOW Urine Turbidity CLOUDY Urine pH 5.5 Urine Specific [place] 1.011 Urine Protein 100 mg/dL Urine Glucose (UA) NEG mg/dL Urine Ketones NEG mg/dL Urine Occult Blood MOD Urine Nitrite NEG Urine Bilirubin NEG Urine Urobilinogen LESS THAN 2.0 MG/DL Urine Leukocyte Esterase LARGE Urine RBC /hpf Urine WBC /hpf Urine WBC Clumps MANY Urine Squamous Epithelial Cells 6 /hpf Urine Bacteria MOD /hpf Urine Yeast with Hyphae MOD Urine Yeast (Budding) FEW Microscopic Urinalysis Comment CATH-CULTURE IND Test 05/29/17 12:33 05/29/17 16:00 05/30/17 06:50 Blood Gas Puncture Site RT RADIAL Blood Gas Patient Temperature 98.6 Blood Gas HCO3 25 mmol/L Blood Gas Base Excess -0.5 mmol/L Blood Gas Oxygen Saturation 94 % Arterial Blood pH 7.31 Arterial Blood Partial Pressure CO2 50 mmHg Arterial Blood Partial Pressure O2 85 mmHg Arterial Blood Oxygen Content 9.4 Vol % Arterial Blood Carboxyhemoglobin 2.1 % Arterial Blood Methemoglobin 0.8 % Blood Gas Hemoglobin 7.0 G/DL Oxygen Delivery Device VENTILATOR Blood Gas Ventilator Setting AC/RR16/VT550/[id number] Blood Gas Inspired Oxygen 50 % White Blood Count 7.4 TH/MM3 6.0 TH/MM3 Red Blood Count 2.69 MIL/MM3 2.73 MIL/MM3 Hemoglobin 7.2 GM/DL 7.0 GM/DL Hematocrit 21.9 % 22.2 % Mean Corpuscular Volume 81.3 FL 81.2 FL Mean Corpuscular Hemoglobin 26.6 PG 25.8 PG Mean Corpuscular Hemoglobin Concent 32.7 % 31.7 % Red Cell Distribution Width 17.6 % 17.4 % Platelet Count 283 TH/MM3 288 TH/MM3 Mean Platelet Volume 6.2 FL 6.0 FL Neutrophils (%) (Auto) 76.8 % 74.7 % Lymphocytes (%) (Auto) 11.7 % 11.9 % Monocytes (%) (Auto) 6.8 % 7.9 % Eosinophils (%) (Auto) 4.1 % 5.0 % Basophils (%) (Auto) 0.6 % 0.5 % Neutrophils # (Auto) 5.6 TH/MM3 4.5 TH/MM3 Lymphocytes # (Auto) 0.9 TH/MM3 0.7 TH/MM3 Monocytes # (Auto) 0.5 TH/MM3 0.5 TH/MM3 Eosinophils # (Auto) 0.3 TH/MM3 0.3 TH/MM3 Basophils # (Auto) 0.0 TH/MM3 0.0 TH/MM3 CBC Comment DIFF FINAL DIFF FINAL Differential Comment Prothrombin Time 11.3 SEC Prothromb Time International Ratio 1.0 RATIO Activated Partial Thromboplast Time 31.0 SEC Fibrinogen 436 mg/dL Total Creatine Kinase 49 U/L Troponin I 0.04 NG/ML Blood Urea Nitrogen 67 MG/DL Creatinine 3.92 MG/DL Random Glucose 104 MG/DL Total Protein 6.8 GM/DL Albumin 2.0 GM/DL Calcium Level 8.4 MG/DL Alkaline Phosphatase 93 U/L Aspartate Amino Transf (AST/SGOT) 30 U/L Alanine Aminotransferase (ALT/SGPT) 20 U/L Total Bilirubin 0.3 MG/DL Sodium Level 142 MEQ/L Potassium Level 4.8 MEQ/L Chloride Level 106 MEQ/L Carbon Dioxide Level 28.6 MEQ/L Anion Gap 7 MEQ/L Estimat Glomerular Filtration Rate 16 ML/MIN Protein Corrected Calcium 8.6 MG/DL (Vamsi Pino) Medical Decision Making Impression and Plan Impression: 1. Mild T1 compression fracture without significant retropulsion. 2. Significant cervical spondylosis and degenerative disc disease with question of previous discitis 3. L4 5 severe degenerative changes with question of previous discitis. 4. Probable chronic left L5 radiculopathy with motor deficit 5. Left gluteal myofascial injury. Probable mild left sciatic nerve contusion. Patient doing well and neurologically intact. Plan: Primary management per Hospitalist. Critical care management per [employer] Worker. [place] [employer] cervical collar. Mobilise patient w/assistance. (Vamsi Pino) Attending Statement The exam, history, and the medical decision-making described in the above note were completed with the assistance of the mid-level provider. I reviewed and agree with the findings presented. I attest that I had a [id number] encounter with the patient on the same day, and personally performed and documented my assessment and findings in the medical record. Persistent exam findings consistent with left gluteal myofascial pain. Probable chronic left L5 radiculopathy Continuing conservative treatment for T1 fracture Mobilize out of bed as tolerated Continue therapy (Marko Hill MD) Vamsi Pino May 30, 2017 17:49 Marko Hill MD Jun 23, 2017 06:57
--- NOTE | 2017-05-30 18:22 | PD.CONS ---
HPI Service Nephrology Consult Requested By Dr. Carson Reason for Consult Chronic kidney disease with polycystic kidney Primary Care Physician [facility] History of Present Illness Patient is a 57-year-old white male with history of chronic kidney disease due to polycystic kidney disease who was trying to save his mother from falling and they both fell he immediately have back pain and the hip pain along with groin pain and came to emergency during the hospitalization he was found to have T1 nondisplaced fracture and he became unresponsive, he was intubated and today he was successfully extubated he is able to answer that he has known polycystic kidney disease and follows with MI doctor, his GFR fluctuated between 20-60 last time the doctor said to it was getting better and he has not seen any kidney specialists. During this admission his creatinine has jumped from 2.6- 3.9 he has good urine output he is able to drink water. Review of Systems Constitutional: COMPLAINS OF: Fatigue Musculoskeletal: COMPLAINS OF: Joint pain, Muscle aches, Back pain, Neck pain Past Family Social History Allergies: Coded Allergies: No Known Allergies (Unverified , 10/01/16) Past Medical History Umbilical hernia Hypertension Chronic pain from L4/L5 COPD/asthma Anxiety disorder Iron deficiency anemia Polycystic kidney disease Polyp cystic liver disease Hyperlipidemia Type 2 diabetes Past Surgical History Right wrist surgery Bilateral knee arthroscopy Reported Medications Reported Meds & Active Scripts Active Diclofenac Sodium DR (Diclofenac Sodium) 75 Mg Tabdr 75 Mg PO BID Reported Gabapentin 300 Mg Cap 300 Mg PO BID Furosemide 20 Mg Tab 20 Mg PO DAILY Doxazosin (Doxazosin Mesylate) 4 Mg Tab 4 Mg PO HS Buspirone (Buspirone HCl) 10 Mg Tab 10 Mg PO TID Combivent Respimat Inh (Ipratropium-Albuterol Inh) 20-100 Shelter/Act Aero 1 Puff INH QID Amlodipine (Amlodipine Besylate) 2.5 Mg Tab 2.5 Mg PO DAILY Pravastatin 40 Mg Tab 40 Mg PO DAILY Glipizide 5 Mg Tab 5 Mg PO BIDAC Take 30 minutes before a meal Active Ordered Medications Current Medications Medications (Trade) Dose Ordered Sig/Mian Route Start Time Stop Time Status Last Admin (NS Flush) 2 ml BID IV FLUSH 05/25/17 09:00 05/30/17 10:26 (NS Flush) 2 ml UNSCH PRN IVF 05/25/17 07:30 (Tylenol) 650 mg Q4H PRN PO 05/25/17 08:45 (Zofran Inj) 4 mg Q6H PRN IVP 05/25/17 08:45 (Narcan Inj) 0.4 mg UNSCH PRN IV 05/25/17 08:45 ([place]-Colace) 1 tab BID PO 05/25/17 10:00 05/30/17 10:26 (Milk Of Magnesia Liq) 30 ml Q12H PRN PO 05/25/17 08:45 05/26/17 20:51 (Senokot) 17.2 mg Q12H PRN PO 05/25/17 08:45 (Dulcolax Supp) 10 mg DAILY PRN RECTAL 05/25/17 08:45 (Lactulose Liq) 30 ml DAILY PRN PO 05/25/17 08:45 (Duoneb Neb) 1 ampule Q2HR NEB PRN NEB 05/25/17 08:45 (D50w (Vial) Inj) 50 ml UNSCH PRN IV 05/25/17 08:45 (Glucagon Inj) 1 mg UNSCH PRN OTHER 05/25/17 08:45 (Norvasc) 2.5 mg DAILY PO 05/25/17 13:30 05/30/17 10:26 (Buspar) 10 mg TID PO 05/25/17 18:00 05/30/17 17:37 (Cardura) 4 mg HS PO 05/25/17 21:00 05/29/17 20:28 (Pravachol) 40 mg DAILY PO 05/26/17 09:00 05/30/17 10:25 (Ferrous Sulfate) 325 mg BID PO 05/25/17 21:00 05/30/17 10:26 (Pill Splitter) 1 ea UNSCH PRN OTHER 05/25/17 13:45 05/30/17 11:51 (Peridex 0.12% Liq) 15 ml BID@08,20 MT 05/29/17 20:00 05/29/17 20:30 Propofol 100 ml @ 3 mls/hr TITRATE PRN IV 05/29/17 11:15 05/30/17 06:30 (Neurontin) 100 mg BID PO 05/29/17 21:00 05/30/17 10:26 (NovoLOG SUPPLEMENTAL SCALE) 1 Q6HR SQ 05/29/17 12:00 05/30/17 17:37 Piperacillin Sod/ Tazobactam Sod 50 ml @ 100 mls/hr Q6H IV 05/29/17 20:00 05/30/17 13:41 (Duoneb Neb) 1 ampule Q6HR NEB NEB 05/29/17 17:45 05/30/17 17:45 (Duoneb Neb) 1 ampule Q2HR NEB PRN NEB 05/29/17 17:45 Fluconazole/ Sodium Chloride 200 ml @ 100 mls/hr Q24H IV 05/30/17 11:00 05/30/17 11:51 (Percocet 10-325 Mg) 1 tab Q4H PRN PO 05/30/17 11:00 05/30/17 15:51 Family History He denies knowledge of kidney disease in the family Social History He smokes cigarettes trying to cut back, denies any significant alcohol Physical Exam Vital Signs Vital Signs Date Time Temp Pulse Resp B/P (MAP) Pulse Ox O2 Delivery O2 Flow Rate FiO2 05/30/17 16:51 14 05/30/17 16:00 50 05/30/17 16:00 98.4 84 15 165/79 (107) 96 05/30/17 16:00 84 05/30/17 14:00 84 05/30/17 12:00 50 05/30/17 12:00 84 05/30/17 12:00 98.6 84 14 174/87 (116) 92 05/30/17 10:00 85 05/30/17 09:53 93 Nasal Cannula 3.00 05/30/17 09:25 93 Nasal Cannula 3 05/30/17 08:55 97 40 05/30/17 08:05 97 40 05/30/17 08:05 40 05/30/17 08:00 50 05/30/17 08:00 72 05/30/17 08:00 98.8 72 11 138/71 (93) 99 05/30/17 07:00 98 Mechanical Ventilator 50 05/30/17 04:26 96 50 05/30/17 04:00 77 05/30/17 04:00 97.8 77 18 155/76 (102) 98 05/30/17 04:00 50 05/30/17 02:00 76 05/30/17 01:22 98 50 05/30/17 00:00 98.4 68 18 137/68 (91) 99 05/30/17 00:00 68 05/30/17 00:00 50 05/29/17 22:00 70 05/29/17 20:50 98 50 05/29/17 20:00 70 05/29/17 20:00 50 05/29/17 20:00 99 Mechanical Ventilator 50 05/29/17 20:00 98.6 70 18 133/71 (91) 99 Physical Exam GENERAL: Well-nourished, well-developed patient. SKIN: Warm and dry. HEAD: Normocephalic. EYES: No scleral icterus. No injection or drainage. NECK: Supple, trachea midline. No JVD or lymphadenopathy. CARDIOVASCULAR: Regular rate and rhythm without murmurs, gallops, or rubs. RESPIRATORY: Breath sounds equal bilaterally. No accessory muscle use. GASTROINTESTINAL: Abdomen soft, non-tender, distended. Umbilical hernia EXTREMITIES: No cyanosis, 1+ edema. NEUROLOGICAL: Awake, alert, and oriented x 3. Non-focal. Laboratory Laboratory Tests Test 05/30/17 06:50 White Blood Count 6.0 Red Blood Count 2.73 Hemoglobin 7.0 Hematocrit 22.2 Mean Corpuscular Volume 81.2 Mean Corpuscular Hemoglobin 25.8 Mean Corpuscular Hemoglobin Concent 31.7 Red Cell Distribution Width 17.4 Platelet Count 288 Mean Platelet Volume 6.0 Neutrophils (%) (Auto) 74.7 Lymphocytes (%) (Auto) 11.9 Monocytes (%) (Auto) 7.9 Eosinophils (%) (Auto) 5.0 Basophils (%) (Auto) 0.5 Neutrophils # (Auto) 4.5 Lymphocytes # (Auto) 0.7 Monocytes # (Auto) 0.5 Eosinophils # (Auto) 0.3 Basophils # (Auto) 0.0 CBC Comment DIFF FINAL Differential Comment Blood Urea Nitrogen 67 Creatinine 3.92 Random Glucose 104 Total Protein 6.8 Albumin 2.0 Calcium Level 8.4 Alkaline Phosphatase 93 Aspartate Amino Transf (AST/SGOT) 30 Alanine Aminotransferase (ALT/SGPT) 20 Total Bilirubin 0.3 Sodium Level 142 Potassium Level 4.8 Chloride Level 106 Carbon Dioxide Level 28.6 Anion Gap 7 Estimat Glomerular Filtration Rate 16 Protein Corrected Calcium 8.6 Date/Time Source Procedure Growth Status 05/25/17 08:00 Blood Peripheral Aerobic Blood Culture - Final NO GROWTH IN 5 DAYS Complete 05/25/17 08:00 Blood Peripheral Anaerobic Blood Culture - Final NO GROWTH IN 5 DAYS Complete 05/29/17 11:00 Sputum Endotracheal Gram Stain - Final Resulted 05/29/17 11:00 Sputum Endotracheal Sputum Culture - Preliminary IMMATURE GROWTH - REINCUBATE Resulted 05/29/17 11:15 Urine Catheterized Urine Urine Culture - Final Irina Albicans Complete Result Diagram: 05/30/17 0650 05/30/17 0650 Imaging Last Impressions Renal Ultrasound 05/30/17 0000 Signed Impressions: Service Date/Time: Tuesday, May 30, 2017 12:12 - CONCLUSION: End-stage polycystic kidneys Mario Lam MD Head CT 05/29/17 0000 Signed Impressions: Service Date/Time: May 08:42 - CONCLUSION: 1. No acute infarct, acute hemorrhage, midline shift or extra-axial fluid collections. 2. Mucous retention cyst within the right maxillary sinus. 3. Nasal septal deviation to the right. Denilson Strickland MD Chest X-Ray 05/29/17 0000 Signed Impressions: Service Date/Time: May 11:15 - CONCLUSION: 1. ET tube in good position. 2. Bibasilar atelectasis. 3. No pneumothorax. Leonardo Avendano MD Femur X-Ray 05/25/17 1359 Signed Impressions: Service Date/Time: Thursday, May 25, 2017 14:32 - CONCLUSION: No acute disease. Charanjit Orr MD Lumbar Spine X-Ray 05/25/17 0351 Signed Impressions: Service Date/Time: Thursday, May 25, 2017 04:30 - CONCLUSION: Chronic appearing findings as above. No fracture or acute-appearing malalignment demonstrated of the lumbar spine. Mario Moreno MD Cervical Spine CT 05/25/17 0351 Signed Impressions: Service Date/Time: Thursday, May 25, 2017 04:11 - CONCLUSION: 1. Nondisplaced fracture with mild compression deformity of T1 vertebral body, probably acute. No epidural hematoma or retropulsed fracture fragments. 2. Other findings appear chronic and please see above. Mario Moreno MD Wrist X-Ray 05/25/17 0000 Signed Impressions: Service Date/Time: Thursday, May 25, 2017 04:33 - CONCLUSION: 1. There is soft tissue swelling but I don't see an acute fracture or subluxation of the right wrist. 2. Chronic appearing destruction of the lunate and scaphoid, nonspecific but possibly related to old trauma or chronic arthropathy. Mario Moreno MD Hip and Pelvis X-Ray 05/25/17 Signed Impressions: Service Date/Time: Thursday, May 25, 2017 04:22 - CONCLUSION: Pelvis and left hip are intact. Mario Moreno MD Abdomen/Pelvis CT 05/25/17 Signed Impressions: Service Date/Time: Thursday, May 25, 2017 05:55 - CONCLUSION: 1. No visceral organ injury, fracture or other acute abnormality. 2. Degenerative changes of the lumbar spine, both hips and the pubic symphysis. There is considerable end plate irregularity at L4/L5, presumably reactive/degenerative but chronic discitis or the sequela of previous discitis could have a similar appearance. 3. Findings related to polycystic kidney disease with innumerable variable sized cysts throughout the liver and both kidneys noted. 4. Scattered sub-5 mm nonobstructing stones in both kidneys. 5. Nonspecific hepatosplenomegaly. Mario Moreno MD Assessment and Plan Problem List: (1) Acute kidney injury ICD Codes: N17.9 - Acute kidney failure, unspecified Status: Acute Plan: Patient has advanced kidney disease and progressive renal failure, he has enlarged kidney abdomen distended on physical exam He appears to have urinary tract infection and sepsis I will add Levaquin as polycystic kidney disease response to this class of antibiotics better Cultures have been negative Follow BMP Encourage oral intake Avoid nephrotoxins He was taking diclofenac as an outpatient which has been discontinued He also has underlying diabetes [place] and fluconazole was added (2) Polycystic liver disease ICD Codes: Q44.6 - Cystic disease of liver Status: Acute Plan: Due to polycystic disease (3) Hypertension ICD Codes: I10 - Essential (primary) hypertension Status: Acute Plan: Continue to monitor (4) Intractable pain ICD Codes: R52 - Pain, unspecified Status: Acute Plan: Continue monitor (5) UTI (urinary tract infection) ICD Codes: N39.0 - Urinary tract infection, site not specified Status: Acute Plan: Patient is on Zosyn however due to polycystic kidney disease he will respond more to Levaquin or Cipro I will add this to his regimen Maggie Mike MD May 30, 2017 18:21
[2017-05-30] MEDS: DOXAZOSIN MESYLATE 4 MG TAB PO SCH (20:24)
[2017-05-30] MEDS: LEVOFLOXACIN 250 MG PREMIX INJ 50 ML IV SCH (20:25)
[2017-05-31] VITALS (17 sets, daily range): BP systolic 170–189; BP diastolic 72–90; PULSE 70–93; RESP 16–27; TEMP 98.3–98.8; O2SAT 91–100
[2017-05-31] MEDS: PIPERACIL-TAZO 2.25 GM PREMIX 50 ML IV SCH ×4 (01:59→20:00)
[2017-05-31] MEDS: RESP: ALBUTEROL 2.5 MG/IPRATROPIUM 0.5 MG NEB (SCH) NEB ×4 (04:00→21:06)
[2017-05-31] MEDS: oxyCODONE/ACETAMINOPHEN 10 MG/325 MG TAB PO PRN ×4 (04:49→21:24)
[2017-05-31] MEDS: INSULIN ASPART SUPPLEMENTAL SCALE SQ SCH ×3 (06:06→18:00)
[2017-05-31] MEDS: hydrALAZINE HCL 20 MG/ML VIAL IV PUSH PRN ×3 (06:06→21:19)
[2017-05-31 07:31] LABS: AUTOMATED NEUTROPHIL # 3.9 TH/MM3 (1.8-7.7); BASOPHIL % 0.5 % (0.0-2.0); EOSINOPHIL # 0.4 TH/MM3 (0-0.4); EOSINOPHIL % 6.6 % (0.0-4.0); HEMO FLAGS DIFF FINAL; LYMPH % 12.4 % (9.0-44.0); LYMPHOCYTE # 0.7 TH/MM3 (1.0-4.8); MEAN CELL VOLUME 83.4 FL (80.0-100.0); MEAN CORPUSCULAR HEMOGLOBIN 27.5 PG (27.0-34.0); MONO % 8.1 % (0.0-8.0); NEUT % 72.4 % (16.0-70.0); PLATELET COUNT 261 TH/MM3 (150-450); RED BLOOD COUNT 2.64 MIL/MM3 (4.50-5.90); RED CELL DISTRIBUTION WIDTH 17.3 % (11.6-17.2); WHITE BLOOD COUNT 5.3 TH/MM3 (4.0-11.0)
[2017-05-31 07:35] LABS: BICARBONATE 26.1 MEQ/L (21.0-32.0); POTASSIUM 4.1 MEQ/L (3.5-5.1)
[2017-05-31] MEDS: CHLORHEXIDINE 0.12% (ORAL KIT) 15 ML CUP MT SCH ×2 (08:00→19:46)
[2017-05-31] MEDS: busPIRone HCL 10 MG TAB PO SCH ×3 (08:14→17:44)
[2017-05-31] MEDS: PRAVASTATIN SOD 40 MG TAB PO SCH (08:14)
[2017-05-31] MEDS: FERROUS SULFATE 325 MG (65 MG ELEMENTAL IRON) TAB PO SCH ×2 (08:14→20:01)
[2017-05-31] MEDS: GABAPENTIN 100 MG CAP PO SCH ×2 (08:14→20:01)
[2017-05-31] MEDS: amLODIPine BESYLATE 5 MG TAB PO SCH (08:14)
[2017-05-31] MEDS: DOCUSATE SODIUM 50 MG/SENNA 8.6 MG TAB PO SCH ×2 (08:15→20:01)
[2017-05-31] MEDS: SODIUM CHLORIDE 0.9% FLUSH 10 ML FLUSH IV FLUSH SCH ×2 (09:00→20:01)
--- NOTE | 2017-05-31 09:44 | HHI.NPPN ---
Subjective Interval History Admitted on the after a fall. Creatinine on admission was 2.6. Appears to have ADPKD. Review of Systems General Constitutional: Fatigue Objective Data Data Vital Signs Date Time Temp Pulse Resp B/P (MAP) Pulse Ox O2 Delivery O2 Flow Rate FiO2 05/31/17 08:00 98.5 88 27 179/86 (117) 91 05/31/17 08:00 88 05/31/17 07:00 94 Room Air 05/31/17 06:00 80 05/31/17 04:00 98.3 87 22 183/90 (121) 96 05/31/17 04:00 87 05/31/17 03:45 100 Simple Mask 6.00 05/31/17 03:30 84 Simple Mask 6.00 05/31/17 02:00 70 05/31/17 00:00 86 05/31/17 00:00 98.8 86 16 189/90 (123) 92 05/30/17 23:06 93 Nasal Cannula 2.00 05/30/17 22:00 86 05/30/17 20:00 98.5 82 14 168/86 (113) 94 05/30/17 20:00 99 Nasal Cannula Humidified 05/30/17 20:00 82 05/30/17 19:00 99 Nasal Cannula Humidified 05/30/17 18:00 85 05/30/17 16:51 14 05/30/17 16:00 50 05/30/17 16:00 98.4 84 15 165/79 (107) 96 05/30/17 16:00 84 05/30/17 14:00 84 05/30/17 12:00 50 05/30/17 12:00 84 05/30/17 12:00 98.6 84 14 174/87 (116) 92 05/30/17 10:00 85 05/30/17 09:53 93 Nasal Cannula 3.00 -: 05/31/17 0630 05/31/17 0630 Physical Exam General Appearance: Well Developed, No Acute Distress Pulmonary Resp Exam: Clear Bilaterally Cardiology CV Exam: Regular, Normal Sinus Rhythm Gastrointestinal/Abdomen GI Exam: Soft, Bowel Sounds Present, Positive Bowel Movement Neurologic Neuro Exam: Moving All Extremities Assessment/Plan Problem List: (1) Acute kidney injury ICD Codes: N17.9 - Acute kidney failure, unspecified Status: Acute Plan: Patient has advanced kidney disease and progressive renal failure. He appears to have urinary tract infection and sepsis Now on Levaquin which will penetrate the cysts better. Cultures have been negative Follow BMP Encourage oral intake Avoid nephrotoxins He was taking diclofenac as an outpatient which has been discontinued He also has underlying diabetes [place] and fluconazole was added No immediate need for dialysis. (2) Polycystic liver disease ICD Codes: Q44.6 - Cystic disease of liver Status: Acute Plan: Due to polycystic disease (3) Hypertension ICD Codes: I10 - Essential (primary) hypertension Status: Acute Plan: Continue to monitor (4) Intractable pain ICD Codes: R52 - Pain, unspecified Status: Acute Plan: Continue monitor (5) UTI (urinary tract infection) ICD Codes: N39.0 - Urinary tract infection, site not specified Status: Acute Plan: Now on Levaquin. Zosyn can be stopped. Mark Sadler MD May 31, 2017 09:44
[2017-05-31] MEDS: FLUCONAZOLE 400 MG PREMIX BAG 200 ML IV SCH (10:24)
--- NOTE | 2017-05-31 16:33 | HHI.CCPN ---
Subjective Remarks/Hospital Course 05/29: This is a 57-year-old male past medical history of chronic kidney disease , polycystic kidney disease, polycystic liver disease, hypertension, COPD, and anxiety who presented with a fall. Patient stated that he try to prevent his mom from falling down the stairs and fell down with her. He stated that he was able to get up it was very painful and went to his bed. He stated that after he laid down he was not able to get up at all. Because of this he went to the emergency department. Patient was initially seen and [place] in which extensive workup was done. He was found to have nondisplaced fracture of T1 vertebrae with mild compression. Neurosurgeon Dr. Hill consulted and recommended transfer to the [facility]. Patient was also found to be anemic. He stated that he has a history anemia and he was told to take ferrous sulfate but he did not take the medication. He stated that he was told that he had an anemia due to his polycystic kidney disease. Patient was evaluated by neurosurgery and was recommended conservative management for his T1 fracture and had a [place] J collar placed. On the morning of 05/29 patient was noted to be minimally responsive with altered mental status. A rapid response team was activated and Stat head CT was ordered and neurology Dr. Hill was consulted by Dr. Walsh from the hospitalist service. Patient was noted to have twitching involving his extremities bilaterally as well as his face and jaw per documentation by Dr. Hill who felt that the patient was having seizures. Patient was given Ativan 1 mg IV as well as loaded with Dilantin 1 g IV stat, and patient was transferred to the ICU. Critical care was consulted by Dr. Walsh and I evaluated the patient immediately on his arrival to the ICU. At that time he was essentially unresponsive with sonorous respirations and O2 sats in the 70s. ABG done earlier revealed PCO2 in the 60s. Patient was not protecting his airway hence decision was made to see with emergent endotracheal intubation and patient was placed on mechanical ventilation. History was obtained by reviewing records and discussion with nursing staff and rapid response team. Off note patient did have a UA done a few days ago and was being treated for UTI with IV Rocephin. 05/30: Sedated, easily arousable, following commands, orally intubated on mechanical ventilation. Tolerating tube feeds overnight. No further seizures noted. Did have low-grade fevers overnight. UA shows budding yeast with hyphae. 05/31: Few white cells in sputum, light growth MRSA. Extubated 30 hours ago, breathing comfortably. Objective Vital Signs Date Time Temp Pulse Resp B/P (MAP) Pulse Ox O2 Delivery O2 Flow Rate FiO2 05/31/17 16:15 83 05/31/17 16:00 98.5 20 176/78 (110) 92 05/31/17 09:42 Nasal Cannula 3.00 05/30/17 16:00 50 Intake and Output 05/31/17 05/31/17 06/01/17 08:00 16:00 00:00 Intake Total 1091 ml Output Total 2350 ml Balance -1259 ml Result Diagram: 05/31/17 0630 05/31/17 0630 Other Results Microbiology Date/Time Source Procedure Growth Status 05/29/17 11:15 Urine Catheterized Urine Urine Culture - Final Irina Albicans Complete Imaging Last Impressions Head CT 05/29/17 0000 Signed Impressions: Service Date/Time: May 08:42 - CONCLUSION: 1. No acute infarct, acute hemorrhage, midline shift or extra-axial fluid collections. 2. Mucous retention cyst within the right maxillary sinus. 3. Nasal septal deviation to the right. Denilson Strickland MD Chest X-Ray 05/29/17 0000 Signed Impressions: Service Date/Time: May 11:15 - CONCLUSION: 1. ET tube in good position. 2. Bibasilar atelectasis. 3. No pneumothorax. Leonardo Avendano MD Femur X-Ray 05/25/17 1359 Signed Impressions: Service Date/Time: Thursday, May 25, 2017 14:32 - CONCLUSION: No acute disease. Charanjit Orr MD Lumbar Spine X-Ray 05/25/17 0351 Signed Impressions: Service Date/Time: Thursday, May 25, 2017 04:30 - CONCLUSION: Chronic appearing findings as above. No fracture or acute-appearing malalignment demonstrated of the lumbar spine. Mario Moreno MD Cervical Spine CT 05/25/17 0351 Signed Impressions: Service Date/Time: Thursday, May 25, 2017 04:11 - CONCLUSION: 1. Nondisplaced fracture with mild compression deformity of T1 vertebral body, probably acute. No epidural hematoma or retropulsed fracture fragments. 2. Other findings appear chronic and please see above. Mario Moreno MD Wrist X-Ray 05/25/17 0000 Signed Impressions: Service Date/Time: Thursday, May 25, 2017 04:33 - CONCLUSION: 1. There is soft tissue swelling but I don't see an acute fracture or subluxation of the right wrist. 2. Chronic appearing destruction of the lunate and scaphoid, nonspecific but possibly related to old trauma or chronic arthropathy. Mario Moreno MD Hip and Pelvis X-Ray 05/25/17 Signed Impressions: Service Date/Time: Thursday, May 25, 2017 04:22 - CONCLUSION: Pelvis and left hip are intact. Mario Moreno MD Abdomen/Pelvis CT 05/25/17 Signed Impressions: Service Date/Time: Thursday, May 25, 2017 05:55 - CONCLUSION: 1. No visceral organ injury, fracture or other acute abnormality. 2. Degenerative changes of the lumbar spine, both hips and the pubic symphysis. There is considerable end plate irregularity at L4/L5, presumably reactive/degenerative but chronic discitis or the sequela of previous discitis could have a similar appearance. 3. Findings related to polycystic kidney disease with innumerable variable sized cysts throughout the liver and both kidneys noted. 4. Scattered sub-5 mm nonobstructing stones in both kidneys. 5. Nonspecific hepatosplenomegaly. Mario Moreno MD Objective Remarks HEENT/ Neuro: Moves 4 limbs, arousable, orally intubated, pupils bilaterally constricted 2 mm reactive to light. no icterus, tongue/ mucosa moist Neck: Antrim J collar in place, airway widely patent. Chest/Pulm: extubated, good air entry bilaterally, scattered rhonchi, no wheezing or crackles CVS: S1-S2 regular, no murmur, No JVD. GI/abdomen: soft, nontender, bowel sounds active Extremities: warm bilaterally, no edema A/P Assessment and Plan 57-year-old male with: Encephalopathy Suspected seizure Aspiration pneumonia Acute respiratory failure requiring mechanical ventilation UTI T1 fracture Diabetes mellitus CKD due to polycystic kidney disease Hypertension Chronic pain from L4/L5 COPD/asthma Anxiety disorder Iron deficiency anemia Polycystic liver disease Hyperlipidemia Plan: Neuro: Follow neuro status. Loaded with Dilantin 1 g. We'll continue Dilantin 100 mg IV every 8 hourly. Follow free Dilantin level - pending. Neurology consult noted. Follow up EEG. Decrease gabapentin dose in view of renal failure to 100 mg twice a day (from 300 mg twice a day). Continue buspar. Cardiovascular: IV hydration, watch for hypotension. Continue amlodipine. Pulmonary:, bronchodilators as needed. GI/liver: Renal/: IV hydration, strict intake output, monitor and replete electro lytes , follow BUN creatinine. Consult nephrology as BUN creatinine rising. Continue cardura. ID: Panculture as ordered. Broadened antibiotic coverage from Rocephin to IV Zosyn in view of suspected aspiration. Consulted ID for sepsis/UTI/pneumonia for workup/antibiotic management in renal failure patient. UA shows budding yeast with hyphae, discussed with Dr. Lai - will decide regarding starting antifungal therapy after evaluating patient. Endocrine: SSI for glycemic control as needed. Heme: Follow CBC. Continue ferrous sulfate. Elevated MCV noted. Patient is on B-12 and folic acid. Prophylaxis: PPI/SCDs/subcutaneous heparin. Overall impression: Breathing comfortably, acceptable cough, controls airway well. Transfer. Andres Modi MD May 31, 2017 16:33
[2017-05-31] MEDS: DOXAZOSIN MESYLATE 4 MG TAB PO SCH (20:01)
[2017-06-01] VITALS (14 sets, daily range): BP systolic 154–185; BP diastolic 81–91; PULSE 76–95; RESP 12–22; TEMP 98.1–98.5; O2SAT 94–98
[2017-06-01] MEDS: hydrALAZINE HCL 20 MG/ML VIAL IV PUSH PRN ×2 (02:45→04:05)
[2017-06-01] MEDS: PIPERACIL-TAZO 2.25 GM PREMIX 50 ML IV SCH ×4 (02:45→19:59)
[2017-06-01] MEDS: RESP: ALBUTEROL 2.5 MG/IPRATROPIUM 0.5 MG NEB (SCH) NEB ×4 (04:00→22:00)
[2017-06-01] MEDS: oxyCODONE/ACETAMINOPHEN 10 MG/325 MG TAB PO PRN ×5 (04:05→20:00)
[2017-06-01 05:14] LABS: BASOPHIL % 0.6 % (0.0-2.0); EOSINOPHIL # 0.4 TH/MM3 (0-0.4); EOSINOPHIL % 6.6 % (0.0-4.0); HEMO FLAGS DIFF FINAL; LYMPH % 15.2 % (9.0-44.0); LYMPHOCYTE # 0.9 TH/MM3 (1.0-4.8); MEAN CELL VOLUME 80.2 FL (80.0-100.0); MEAN CORPUSCULAR HEMOGLOBIN 25.8 PG (27.0-34.0); MEAN CORPUSCULAR HGB CONC 32.2 % (32.0-36.0); NEUT % 70.6 % (16.0-70.0); PLATELET COUNT 320 TH/MM3 (150-450); RED CELL DISTRIBUTION WIDTH 17.9 % (11.6-17.2); WHITE BLOOD COUNT 5.6 TH/MM3 (4.0-11.0)
[2017-06-01 05:43] LABS: BICARBONATE 26.5 MEQ/L (21.0-32.0); POTASSIUM 4.4 MEQ/L (3.5-5.1)
[2017-06-01] MEDS: INSULIN ASPART SUPPLEMENTAL SCALE SQ SCH ×4 (06:00→17:39)
[2017-06-01] MEDS: busPIRone HCL 10 MG TAB PO SCH ×3 (07:45→17:39)
[2017-06-01] MEDS: DOCUSATE SODIUM 50 MG/SENNA 8.6 MG TAB PO SCH ×2 (07:46→20:00)
[2017-06-01] MEDS: CHLORHEXIDINE 0.12% (ORAL KIT) 15 ML CUP MT SCH ×2 (07:46→19:59)
[2017-06-01] MEDS: GABAPENTIN 100 MG CAP PO SCH ×2 (07:46→20:00)
[2017-06-01] MEDS: FERROUS SULFATE 325 MG (65 MG ELEMENTAL IRON) TAB PO SCH ×2 (07:46→20:00)
[2017-06-01] MEDS: SODIUM CHLORIDE 0.9% FLUSH 10 ML FLUSH IV FLUSH SCH ×2 (07:46→20:00)
[2017-06-01] MEDS: amLODIPine BESYLATE 5 MG TAB PO SCH (07:46)
[2017-06-01] MEDS: PRAVASTATIN SOD 40 MG TAB PO SCH (07:46)
[2017-06-01] MEDS: FLUCONAZOLE 400 MG PREMIX BAG 200 ML IV SCH (11:15)
--- NOTE | 2017-06-01 11:52 | HHI.NPPN ---
Subjective Interval History complains of back pain. Also has an umbilical hernia which is painful for him. Non oliguric, poor renal function. Abdomen is distended. Review of Systems General Constitutional: Fatigue Gastrointestinal Gastrointestinal: Abdominal Pain Musculoskeletal MS: Pain/Stiffness Objective Data Data Vital Signs Date Time Temp Pulse Resp B/P (MAP) Pulse Ox O2 Delivery O2 Flow Rate FiO2 06/01/17 10:00 91 06/01/17 08:00 98.3 94 22 154/91 (112) 94 06/01/17 08:00 85 06/01/17 07:00 94 Room Air 06/01/17 06:00 85 06/01/17 05:05 12 06/01/17 04:00 95 06/01/17 04:00 98.4 95 13 176/84 (114) 95 06/01/17 02:00 84 06/01/17 00:00 98.1 78 12 185/91 (122) 98 06/01/17 00:00 76 05/31/17 22:00 77 05/31/17 21:06 96 Nasal Cannula 3.00 05/31/17 20:00 85 05/31/17 20:00 98.4 85 22 177/86 (116) 97 05/31/17 19:00 95 Nasal Cannula 2.00 05/31/17 18:18 99 Nasal Cannula 3.00 05/31/17 18:00 82 05/31/17 16:15 83 05/31/17 16:00 98.5 83 20 176/78 (110) 92 05/31/17 14:00 82 05/31/17 12:00 98.5 93 22 170/72 (104) 93 05/31/17 12:00 93 -: 06/01/17 0436 06/01/17 0436 Physical Exam General Appearance: Well Developed, No Acute Distress Pulmonary Resp Exam: Clear Bilaterally Cardiology CV Exam: Regular, Normal Sinus Rhythm Gastrointestinal/Abdomen GI Exam: Soft, Bowel Sounds Present, Positive Bowel Movement Neurologic Neuro Exam: Moving All Extremities Assessment/Plan Problem List: (1) Acute kidney injury ICD Codes: N17.9 - Acute kidney failure, unspecified Status: Acute Plan: Patient has advanced kidney disease and may be nearing the need for dialysis. He appears to have urinary tract infection and sepsis Now on Levaquin which will penetrate the cysts better. Cultures have been negative Follow BMP Encourage oral intake Avoid nephrotoxins He was taking diclofenac as an outpatient which has been discontinued He also has underlying diabetes [place] fluconazole was added No immediate need for dialysis. (2) Polycystic liver disease ICD Codes: Q44.6 - Cystic disease of liver Status: Acute Plan: Due to polycystic disease (3) Hypertension ICD Codes: I10 - Essential (primary) hypertension Status: Acute Plan: Continue to monitor (4) Intractable pain ICD Codes: R52 - Pain, unspecified Status: Acute Plan: Continue monitor (5) UTI (urinary tract infection) ICD Codes: N39.0 - Urinary tract infection, site not specified Status: Acute Plan: Now on Levaquin. Zosyn can be stopped. Mark Sadler MD Jun 01, 2017 11:52
--- NOTE | 2017-06-01 12:19 | HHI.PR ---
Subjective Remarks Patient complaining of abdominal pain at the hernia site. When I asked patient when he had this pain he could not tell me. His nurse stated that she had yesterday he was not complaining of any abdominal pain yesterday. Deny any nausea vomiting remains afebrile. I do not see any documented bowel movements and patient deny any bowel movements. Patient's nurse is at the bedside and asking for blood pressure medication. She is also asking to reconsult physical therapist. Objective Vitals Vital Signs Date Time Temp Pulse Resp B/P (MAP) Pulse Ox O2 Delivery O2 Flow Rate FiO2 06/01/17 10:00 91 06/01/17 08:00 98.3 94 22 154/91 (112) 94 06/01/17 08:00 85 06/01/17 07:00 94 Room Air 06/01/17 06:00 85 06/01/17 05:05 12 06/01/17 04:00 95 06/01/17 04:00 98.4 95 13 176/84 (114) 95 06/01/17 02:00 84 06/01/17 00:00 98.1 78 12 185/91 (122) 98 06/01/17 00:00 76 05/31/17 22:00 77 05/31/17 21:06 96 Nasal Cannula 3.00 05/31/17 20:00 85 05/31/17 20:00 98.4 85 22 177/86 (116) 97 05/31/17 19:00 95 Nasal Cannula 2.00 05/31/17 18:18 99 Nasal Cannula 3.00 05/31/17 18:00 82 05/31/17 16:15 83 05/31/17 16:00 98.5 83 20 176/78 (110) 92 05/31/17 14:00 82 I/O 05/31/17 05/31/17 05/31/17 06/01/17 06/01/17 06/01/17 07:00 15:00 23:00 07:00 15:00 23:00 Intake Total 1091 ml 250 ml 825 ml 1162 ml Output Total 2350 ml 2600 ml 2000 ml Balance -1259 ml 250 ml -1775 ml -838 ml Intake Oral 960 ml 825 ml 960 ml IV Total 131 ml 250 ml 202 ml Output Urine Total 2350 ml 2600 ml 2000 ml # Bowel Movements 0 0 0 Result Diagram: 06/01/176 06/01/17435 Objective Remarks GENERAL: This is a well-nourished, well-developed patient, in a c-collar in place in no acute distress but is complaining of pain NECK: Trachea midline. No JVD or lymphadenopathy. Supple, nontender, no meningeal signs. CARDIOVASCULAR: Regular rate and rhythm without murmurs, gallops, or rubs. RESPIRATORY: CTA B/L GASTROINTESTINAL: Abdomen soft and nondistended. +TTP at the umbilical hernia site and difficulty to reduce secondary to pain. No hepato-splenomegaly, or palpable masses. Negative peritoneal signs. MUSCULOSKELETAL:B/L lower extremity full range of motion. Tenderness palpation in the left gluteal area. NEUROLOGICAL: Awake and alert. Cranial nerves II through XII intact. Motor and sensory grossly within normal limits. Five out of 5 muscle strength in all muscle groups. Normal speech. Medications and IVs Current Medications Morphine Sulfate (Morphine Inj) 2 mg ONCE ONCE IV Last administered on 05:04; Start 05/25/17 at 04:00; Stop 05/25/17 at 04:01; Status DC Ondansetron HCl (Zofran Inj) 4 mg ONCE ONCE IVP Last administered on 05:04; Start 05/25/17 at 04:00; Stop 05/25/17 at 04:01; Status DC Sodium Chloride (NS Flush) 2 ml UNSCH PRN IVF FLUSH AFTER USING IV ACCESS; Start 05/25/17 at 04:00; Stop 05/25/17 at 09:34; Status DC Sodium Chloride 1,000 ml @ 100 mls/hr Q10H IV Last administered on 05/25/17 21:45; Start 05/25/17 at 04:00; Stop 05/26/17 at 10:43; Status DC Sodium Chloride 1,000 ml @ 999 mls/hr BOLUS ONCE IV Last administered on 05/25 05:52; Start 05/25/17 at 05:45; Stop 05/25/17 at 06:45; Status DC Ondansetron HCl (Zofran Inj) 4 mg ONCE ONCE IV PUSH Last administered on 05:52; Start 05/25/17 at 05:45; Stop 05/25/17 at 05:46; Status DC Morphine Sulfate (Morphine Inj) 4 mg ONCE ONCE IV PUSH Last administered on 05:52; Start 05/25/17 at 05:45; Stop 05/25/17 at 05:46; Status DC Hydromorphone HCl (Dilaudid Pf Inj) 0.5 mg ONCE ONCE IV PUSH Last administered on 05/25/17 06:42; Start 05/25/17 at 06:45; Stop 05/25/17 at 06:46 ; Status DC Sodium Chloride (NS Flush) 2 ml BID IV FLUSH Last administered on 06/01/17 07: 46; Start 05/25/17 at 09:00 Sodium Chloride (NS Flush) 2 ml UNSCH PRN IVF FLUSH AFTER USING IV ACCESS; Start 05/25/17 at 07:30 Ceftriaxone Sodium 1000 mg/ Sodium Chloride 100 ml @ 200 mls/hr ONCE ONCE IV Last administered on 05/25/17 07:48; Start 05/25/17 at 07:45; Stop 05/25/17 at 08:14; Status DC Ondansetron HCl (Zofran Inj) 4 mg ONCE ONCE IV PUSH Last administered on 08:07; Start 05/25/17 at 08:00; Stop 05/25/17 at 08:01; Status DC Hydromorphone HCl (Dilaudid Pf Inj) 1 mg ONCE ONCE IV PUSH Last administered on 05/25/17 08:07; Start 05/25/17 at 08:00; Stop 05/25/17 at 08:01; Status DC Sodium Chloride 250 ml @ 15 mls/hr ONCE ONCE IV Last administered on 08:45; Start 05/25/17 at 08:45; Stop 05/26/17 at 01:24; Status DC Ceftriaxone Sodium 1000 mg/ Sodium Chloride 100 ml @ 200 mls/hr Q24H IV Last administered on 05/28/17 09:33; Start 05/26/17 at 08:00; Stop 05/29/17 at 17:39 ; Status DC Sodium Chloride 1,000 ml @ 100 mls/hr Q10H IV ; Start 05/25/17 at 08:38; Stop 05/26/17 at 10:43; Status DC Sodium Chloride (NS Flush) 2 ml UNSCH PRN IV FLUSH FLUSH AFTER USING IV ACCESS ; Start 05/25/17 at 08:45; Stop 05/25/17 at 09:33; Status DC Sodium Chloride (NS Flush) 2 ml BID IV FLUSH ; Start 05/25/17 at 09:00; Stop 07/01 at 09:33; Status DC Acetaminophen (Tylenol) 650 mg Q4H PRN PO TEMP > 100.4; Start 05/25/17 at 08:45 Ondansetron HCl (Zofran Inj) 4 mg Q6H PRN IVP NAUSEA OR VOMITING; Start at 08:45 Acetaminophen/ Hydrocodone Bitart (Ephrata 5-325 Mg) 1 tab Q4H PRN PO PAIN SCALE 3 TO 5; Start 05/25/17 at 08:45; Stop 05/25/17 at 13:15; Status DC Acetaminophen/ Hydrocodone Bitart (Ephrata 10-325 Mg) 1 tab Q4H PRN PO PAIN SCALE 6 TO 10 Last administered on 05/25/17 09:40; Start 05/25/17 at 08:45; Stop 05/25/17 at 13:15; Status DC Naloxone HCl (Narcan Inj) 0.4 mg UNSCH PRN IV SEE LABEL COMMENTS; Start at 08:45 Senna/Docusate Sodium ([place]-Colace) 1 tab BID PO Last administered on 07:46; Start 05/25/17 at 10:00 Magnesium Hydroxide (Milk Of Magnesia Liq) 30 ml Q12H PRN PO MILD - MODERATE CONSTIPATION Last administered on 05/26/17 20:51; Start 05/25/17 at 08:45 Sennosides (Senokot) 17.2 mg Q12H PRN PO MODERATE - SEVERE CONSTIPATION; Start 05/25/17 at 08:45 Bisacodyl (Dulcolax Supp) 10 mg DAILY PRN RECTAL SEVERE CONSITIPATION; Start at 08:45 Lactulose (Lactulose Liq) 30 ml DAILY PRN PO SEVERE CONSITIPATION; Start at 08:45 Albuterol/ Ipratropium (Duoneb Neb) 1 ampule Q2HR NEB PRN NEB dyspnea; Start at 08:45 Dextrose (D50w (Vial) Inj) 50 ml UNSCH PRN IV HYPOGLYCEMIA-SEE COMMENTS; Start 05/25/17 at 08:45 Glucagon (Glucagon Inj) 1 mg UNSCH PRN OTHER HYPOGLYCEMIA-SEE COMMENTS; Start 05/25/17 at 08:45 Insulin Aspart (NovoLOG SUPPLEMENTAL SCALE) 1 ACHS SLIDING SCALE SQ Last administered on 05/27/17 17:24; Start 05/25/17 at 11:00; Stop 05/29/17 at 11:07 ; Status DC Hydromorphone HCl (Dilaudid Pf Inj) 1 mg Q4H PRN IV PUSH pain 4-10 Last administered on 05/26/17 06:15; Start 05/25/17 at 13:15; Stop 05/26/17 at 10:43 ; Status DC Oxycodone/ Acetaminophen (Percocet 10-325 Mg) 1 tab Q4H PRN PO pain 8-10 Last administered on 05/28/17 22:57; Start 05/25/17 at 13:15; Stop 05/29/17 at 10:48 ; Status DC Cyclobenzaprine HCl (Flexeril) 5 mg Q8HR PO Last administered on 05/28/17 22: 56; Start 05/25/17 at 14:00; Stop 05/29/17 at 10:48; Status DC Albuterol/ Ipratropium (Duoneb Neb) 1 ampule Q4HR WHILE AWAKE NEB NEB Last administered on 05/29/17 07:31; Start 05/25/17 at 16:00; Stop 05/29/17 at 15:59 ; Status DC Amlodipine Besylate (Norvasc) 2.5 mg DAILY PO Last administered on 06/01/17 07 :46; Start 05/25/17 at 13:30; Stop 06/01/17 at 11:41; Status DC Buspirone HCl (Buspar) 10 mg TID PO Last administered on 06/01/17 11:15; Start 05/25/17 at 18:00 Doxazosin Mesylate (Cardura) 4 mg HS PO Last administered on 05/31/17 20:01; Start 05/25/17 at 21:00 Gabapentin (Neurontin) 300 mg BID PO Last administered on 05/28/17 22:56; Start 05/25/17 at 13:30; Stop 05/29/17 at 11:07; Status DC Pravastatin Sodium (Pravachol) 40 mg DAILY PO Last administered on 06/01/17 07 :46; Start 05/26/17 at 09:00 Ferrous Sulfate (Ferrous Sulfate) 325 mg BID PO Last administered on 06/01/17 07:46; Start 05/25/17 at 21:00 Miscellaneous (Pill Splitter) 1 ea UNSCH PRN OTHER SEE LABEL COMMENTS Last administered on 05/30/17 11:51; Start 05/25/17 at 13:45 Ketorolac Tromethamine (Toradol Inj) 15 mg Q6HR IV PUSH Last administered on 18:19; Start 05/26/17 at 00:00; Stop 05/27/17 at 18:01; Status DC Oxycodone/ Acetaminophen (Percocet 5-325 Mg) 1 tab Q4H PRN PO pain 1-7; Start 05/26/17 at 10:45; Stop 05/29/17 at 10:48; Status DC Morphine Sulfate (Oramorph Sr) 15 mg Q12HR PO Last administered on 05/28/17 22 :56; Start 05/26/17 at 21:00; Stop 05/29/17 at 10:48; Status DC Lorazepam (Ativan Inj) 2 mg STK-MED ONCE .ROUTE Last administered on 05/29/17 09:09; Start 05/29/17 at 09:07; Stop 05/29/17 at 09:08; Status DC Phenytoin Sodium 1000 mg/Sodium Chloride 120 ml @ 240 mls/hr STAT ONCE IV Last administered on 05/29/17 09:42; Start 05/29/17 at 09:30; Stop 05/29/17 at 09:59; Status DC Etomidate (Amidate Inj) 40 mg STK-MED ONCE .ROUTE ; Start 05/29/17 at 10:37; Stop 05/29/17 at 10:38; Status DC Fentanyl Citrate (fentaNYL INJ) 100 mcg STK-MED ONCE .ROUTE ; Start 05/29/17 at 10:37; Stop 05/29/17 at 10:38; Status DC Rocuronium Simms (Zemuron Inj) 50 mg STK-MED ONCE .ROUTE ; Start 05/29/17 at 10:40; Stop 05/29/17 at 10:41; Status DC Propofol 100 ml @ As Directed STK-MED ONCE .ROUTE ; Start 05/29/17 at 10:43; Stop 05/29/17 at 10:44; Status DC Lorazepam (Ativan Inj) 1 mg NOW ONCE IV ; Start 05/29/17 at 11:00; Stop at 11:01; Status DC Chlorhexidine Gluconate (Peridex 0.12% Liq) 15 ml BID@08,20 MT Last administered on 06/01/17 07:46; Start 05/29/17 at 20:00 Propofol 100 ml @ 3 mls/hr TITRATE PRN IV SEDATION Last administered on 06:30; Start 05/29/17 at 11:15 Gabapentin (Neurontin) 100 mg BID PO Last administered on 06/01/17 07:46; Start 05/29/17 at 21:00 Insulin Aspart (NovoLOG SUPPLEMENTAL SCALE) 1 Q6HR SQ Last administered on 06/01 11:16; Start 05/29/17 at 12:00 Phenytoin Sodium (Dilantin Inj) 100 mg Q8HR IV Last administered on 05/30/17 13:31; Start 05/29/17 at 19:00; Stop 05/30/17 at 15:48; Status DC Piperacillin Sod/ Tazobactam Sod 50 ml @ 100 mls/hr Q6H IV Last administered on 06/01/17 07:45; Start 05/29/17 at 20:00 Albuterol/ Ipratropium (Duoneb Neb) 1 ampule Q6HR NEB NEB Last administered on 05/31/17 18:16; Start 05/29/17 at 17:45 Albuterol/ Ipratropium (Duoneb Neb) 1 ampule Q2HR NEB PRN NEB wheezing; Start 05/29/17 at 17:45 Sodium Polystyrene Sulfonate (Kayexalate Liq) 30 gm Q2HR PO Last administered on 05/29/17 20:00; Start 05/29/17 at 18:00; Stop 05/30/17 at 03:25; Status DC Fluconazole/ Sodium Chloride 200 ml @ 100 mls/hr Q24H IV Last administered on 06/01/17 11:15; Start 05/30/17 at 11:00 Oxycodone/ Acetaminophen (Percocet 10-325 Mg) 1 tab Q4H PRN PO pain scale 4-10 Last administered on 06/01/17 11:30; Start 05/30/17 at 11:00 Levofloxacin/ Dextrose 50 ml @ 50 mls/hr Q48H IV Last administered on 20:25; Start 05/30/17 at 21:00 Hydralazine HCl (Apresoline Inj) 10 mg Q1HR PRN IV PUSH SBP>160, DBP>90 Last administered on 06/01/17 04:05; Start 05/31/17 at 06:00 Amlodipine Besylate (Norvasc) 10 mg DAILY PO Last administered on 06/01/17 11: 51; Start 06/01/17 at 11:45 A/P Assessment and Plan 57-year-old male who initially presented with presented with mechanical fall that resulted and a T1 nondisplaced fracture later developed encephalopathy Metabolic encephalopathy, RESOLVED. -due to infection. -Neurologist was consulted and initially he was treated empirically for seizure but that was ruled out. EEG was negative for any epilepsy. Asterixis -Seemed to resolve. Per neurologist most likely secondary to metabolic encephalopathy. Acute respiratory failure with hypoxia -Status post intubation and extubation -Most likely secondary to aspiration pneumonia. -Resolved. Aspiration pneumonia -Infectious disease following. Sputum cultures grew MRSA. -Patient on Levaquin, Zosyn. -Clinically improving pending sensitivity. -Will need to be cautious with antibiotic choice secondary to chronic kidney disease due to polycystic kidney disease. -Antibiotics per infectious disease. Umbilical hernia -On the day of admission it was reducible. Today difficulty to reduce which may be also due to pain with palpation. -Need to try to avoid IV contrast due to chronic kidney disease. Will get an ultrasound. Will consult general surgeon. Constipation -Will adjust bowel regimen and give patient a suppository. UTI -Grew Irina albicans. On fluconazole. -Infectious disease following. Nondisplaced with mild compression of T1 vertebrae -Neurosurgeon following. -Per neurosurgeon continue conservative treatment with medications, therapy. -Continue cervical brace for T1 fracture -Mobilized out of bed with brace Gluteal myofascia pain secondary to trauma -Hip and femur x-ray was negative -Will need PT. COPD/asthma -on duonebs. -At home he is on albuterol for this. -Smoking cessation. Acute on Chronic kidney disease secondary to polycystic kidney disease -Legal Process Specialist following. -Continue to monitor creatinine. Avoid nephrotoxins. Strict ins and outs. -Per weight trainer kidney failures advanced and patient may need dialysis. Hypertension/hypertensive renal disease -Uncontrolled. Increase amlodipine to 10 mg by mouth daily. Anemia, symptomatic -Patient has a history of iron deficiency anemia secondary to polycystic kidney disease and is noncompliant with treatment.. No signs of active bleeding. -Status post transfusion with packed red blood cells and responded appropriately. Tobacco dependence -Encourage smoking cessation. Patient is already trying to quit. He declined any nicotine patch. Type 2 diabetes - glipizide held. -Continue with insulin sliding scale. Will adjust insulin based on Accu-Cheks. Polycystic kidney disease/polycystic liver disease/hyperlipidemia/hypertension/ anxiety -Continue home medication. DVT prophylaxis - SCDs/ALIRIO. Mary Ellen Benites MD Jun 01, 2017 12:19
[2017-06-01] MEDS ORDERED: BISACODYL 10 MG SUPP RECTAL ONE (12:45)
[2017-06-01] MEDS: DOXAZOSIN MESYLATE 4 MG TAB PO SCH (20:00)
[2017-06-01] MEDS: MAGNESIUM HYDROXIDE SUSP 30 ML CUP PO PRN (20:03)
--- NOTE | 2017-06-01 20:13 | RADRPT ---
EXAM DATE/TIME: 06/01/2017 18:29 [facility] COMPARISON: CT ABDOMEN & PELVIS W/O CONTRAST, May 25, 2017, 5:55. INDICATIONS : Umbilical hernia. MEDICAL HISTORY : Hernia, umbilical. Hypertension. Arthritis. Asthma. COPD. Diabetes. Dysuria. SURGICAL HISTORY : Bilateral knee replacement. Right wrist surgery. ENCOUNTER: Initial ACUITY: 3 months PAIN SCORE: 0/10 LOCATION: Abdomen. AREA EVALUATED: Umbilical region FINDINGS: There is an umbilical hernia containing fat, small amount of fluid and also some peristalsing bowel l oops. The bowel herniation is new relative to the comparison CT. The defect is estimated at approxima tely 2 cm across. CONCLUSION: Umbilical hernia again noted. At the time of the ultrasound, peristalsing bowel loops are present in the hernia sac. Mario Moreno MD on June 01, 2017 at 20:08 Board Certified Radiologist. This report was verified electronically.
[2017-06-01] MEDS: LEVOFLOXACIN 250 MG PREMIX INJ 50 ML IV SCH (21:26)
[2017-06-02] VITALS (9 sets, daily range): BP systolic 162–168; BP diastolic 72–85; PULSE 82–102; RESP 14–18; TEMP 97.6–98.2; O2SAT 94–98
[2017-06-02] MEDS: cloNIDine HCL 0.1 MG TAB PO PRN (00:28)
[2017-06-02] MEDS: INSULIN ASPART SUPPLEMENTAL SCALE SQ SCH ×4 (00:28→17:57)
[2017-06-02] MEDS: PIPERACIL-TAZO 2.25 GM PREMIX 50 ML IV SCH ×4 (00:28→21:48)
[2017-06-02] MEDS: hydrALAZINE HCL 20 MG/ML VIAL IV PUSH PRN (02:04)
[2017-06-02] MEDS: RESP: ALBUTEROL 2.5 MG/IPRATROPIUM 0.5 MG NEB (SCH) NEB ×3 (04:07→15:19)
[2017-06-02] MEDS: oxyCODONE/ACETAMINOPHEN 10 MG/325 MG TAB PO PRN ×3 (05:35→17:59)
[2017-06-02 06:53] LABS: BICARBONATE 28.5 MEQ/L (21.0-32.0); POTASSIUM 4.2 MEQ/L (3.5-5.1)
[2017-06-02] MEDS: CHLORHEXIDINE 0.12% (ORAL KIT) 15 ML CUP MT SCH ×2 (08:00→20:00)
[2017-06-02] MEDS: PRAVASTATIN SOD 40 MG TAB PO SCH (08:20)
[2017-06-02] MEDS: GABAPENTIN 100 MG CAP PO SCH ×2 (08:20→21:48)
[2017-06-02] MEDS: FERROUS SULFATE 325 MG (65 MG ELEMENTAL IRON) TAB PO SCH ×2 (08:20→21:48)
[2017-06-02] MEDS: busPIRone HCL 10 MG TAB PO SCH ×3 (08:20→17:13)
[2017-06-02] MEDS: DOCUSATE SODIUM 50 MG/SENNA 8.6 MG TAB PO SCH ×2 (08:20→21:49)
[2017-06-02] MEDS: SODIUM CHLORIDE 0.9% FLUSH 10 ML FLUSH IV FLUSH SCH ×2 (09:00→21:49)
--- NOTE | 2017-06-02 10:13 | HHI.NSPN ---
(Vamsi Pino) History Chief Complaint: Some mid back and right hip pain. (Vamsi Pino) Interval History 05/25: 57-year-old male was helping his mother down some stairs on Friday morning 06/03/17 when they both fell. He had immediate onset of back and left hip and groin pain. He went to bed last evening and the pain continued to increase. He was brought to the emergency room per EMS today. His initial x- rays revealed a T1 nondisplaced fracture. He complains of neck pain as well as rather severe left lateral hip pain with radiation to the left lateral hip and thigh. He complains of mild numbness in the left anterior thigh. No bowel or bladder dysfunction. He does have a history of chronic back pain. States he has had abnormalities at the L4-5 level. Has had previous episodes of sciatica. 05/26: Patient is asleep but awakens to verbal stimulation. He is alert and interactive after that. His major complaint is pain to the left hip and thigh which causes him not to be able to get up. He does state he has some pain to the upper back/lower neck. He has the [place] J cervical collar in place but the front half is off. 05/27: The patient is doing well this afternoon. He is sitting up in a chair with a lumbar support in place. He complains of numbness to the left calf and weakness to the left foot. 05/28: This afternoon the patient is sitting in the chair doing a breathing treatment when seen. [facility] and a lumbar brace in place. He states that he has weakness to both knees and the right wrist after surgery which is chronic. 05/29: Per Nursing the patient became nonresponsive and had a seizure this morning and was started on phenytoin. He was subsequently transferred to [facility] where he had hypoxic respiratory failure and was intubated. He is sedated on propofol. 05/30: The patient is extubated when seen this afternoon. He states that he is doing good and has no neck pain. 9/18: This morning the patient is doing good when seen. He is awake and watching TV. He states that he is chilly. He does endorse some back and posterior right hip pain but none to the neck or upper thoracic spine. (Vamsi Pino) System Review Comments Constitutional: Patient states he is chilly. He denies any fever. HEENT: Patient denies any visual or hearing difficulty. Respiratory: Patient denies any shortness of breath or productive cough. Cardiovascular: Patient denies any chest pain, palpitations or irregular heartbeat. Gastrointestinal: Patient has some abdominal pain at his umbilical hernia. He denies any nausea, vomiting or incontinence of stool. Genitourinary: Patient states he has a Howell catheter in place. Musculoskeletal: Patient has some mid back pain. He denies any pain to the neck or extremities. Neurologic: Patient has some numbness to the bottom of the right foot. He denies any headache, dizziness or tingling. (Vamsi Pino) Exam Results 05/31/17 05/31/17 06/01/17 06/01/17 06/02/17 06/02/17 06:00 18:00 06:00 18:00 06:00 18:00 Intake Total 1091 ml 1075 ml 1162 ml 1050 ml 967 ml Output Total 2350 ml 2600 ml 2000 ml 1250 ml 1300 ml Balance -1259 ml -1525 ml -838 ml -200 ml -333 ml Intake Oral 960 ml 825 ml 960 ml 750 ml 720 ml IV Total 131 ml 250 ml 202 ml 300 ml 247 ml Output Urine Total 2350 ml 2600 ml 2000 ml 1250 ml 1300 ml # Bowel Movements 0 0 0 0 Vital Signs Date Time Temp Pulse Resp B/P (MAP) Pulse Ox O2 Delivery O2 Flow Rate FiO2 06/02/17 08:13 98 Nasal Cannula 2.00 06/02/17 04:00 86 06/02/17 04:00 97.7 86 15 168/85 (112) 96 06/02/17 02:00 84 06/02/17 00:00 98.1 82 14 168/81 (110) 98 06/02/17 00:00 82 06/01/17 22:00 84 06/01/17 21:00 15 06/01/17 20:41 97 Nasal Cannula 3.00 06/01/17 20:00 82 06/01/17 20:00 98.3 82 14 172/81 (111) 94 06/01/17 19:00 94 Room Air 06/01/17 18:00 85 06/01/17 16:00 82 06/01/17 16:00 98.5 82 17 161/83 (109) 94 06/01/17 14:00 86 06/01/17 12:49 95 Nasal Cannula 3.00 06/01/17 12:00 91 06/01/17 12:00 98.2 83 16 172/88 (116) 94 06/01/17 10:00 91 06/01/17 08:00 98.3 94 22 154/91 (112) 94 06/01/17 08:00 85 06/01/17 07:00 94 Room Air 06/01/17 06:00 85 06/01/17 04:00 95 06/01/17 04:00 98.4 95 13 176/84 (114) 95 06/01/17 02:00 84 06/01/17 00:00 98.1 78 12 185/91 (122) 98 06/01/17 00:00 76 05/31/17 22:00 77 05/31/17 21:06 96 Nasal Cannula 3.00 05/31/17 20:00 85 05/31/17 20:00 98.4 85 22 177/86 (116) 97 05/31/17 19:00 95 Nasal Cannula 2.00 05/31/17 18:18 99 Nasal Cannula 3.00 05/31/17 18:00 82 05/31/17 16:15 83 05/31/17 16:00 98.5 83 20 176/78 (110) 92 05/31/17 14:00 82 05/31/17 12:00 98.5 93 22 170/72 (104) 93 05/31/17 12:00 93 05/31/17 10:00 89 05/31/17 09:42 96 Nasal Cannula 3.00 05/31/17 08:00 98.5 88 27 179/86 (117) 91 05/31/17 08:00 88 05/31/17 07:00 94 Room Air 05/31/17 06:00 80 05/31/17 04:00 98.3 87 22 183/90 (121) 96 05/31/17 04:00 87 05/31/17 03:45 100 Simple Mask 6.00 05/31/17 03:30 84 Simple Mask 6.00 05/31/17 02:00 70 05/31/17 00:00 86 05/31/17 00:00 98.8 86 16 189/90 (123) 92 05/30/17 23:06 93 Nasal Cannula 2.00 05/30/17 22:00 86 05/30/17 20:00 98.5 82 14 168/86 (113) 94 05/30/17 20:00 99 Nasal Cannula Humidified 05/30/17 20:00 82 05/30/17 19:00 99 Nasal Cannula Humidified 05/30/17 18:00 85 05/30/17 16:00 50 05/30/17 16:00 98.4 84 15 165/79 (107) 96 05/30/17 16:00 84 05/30/17 14:00 84 05/30/17 12:00 50 05/30/17 12:00 84 05/30/17 12:00 98.6 84 14 174/87 (116) 92 (Vamsi Pino) Physical Examination GENERAL: Patient awake & alert and readily interacts. Affect essentially normal. No apparent distress. SKIN: Warm, dry & intact w/o any rashes, ulceration or other lesions noted. HEENT: Normocephalic, atraumatic. NECK: [place] J cervical collar in place, midline cervical spine & thoracolumbar junction NTTP, no JVD, trachea midline. CARDIOVASCULAR: S1S2 w/RRR w/o M/G/R, radial & pedal pulses 2+ bilaterally, cap refill < 2 sec. Monitor is sinus rhythm w/o any ectopy noted. RESPIRATORY: Coarse bilaterally, equal excursion, nonlaboured, on NC. GASTROINTESTINAL: Abdomen soft, positive bowel sounds, umbilical hernia slightly soft & nonreducible. GENITOURINARY: Howell catheter to BSD. MUSCULOSKELETAL: Chronic deformity in the right wrist and thumb, extremities NTTP. Mid thoracic spine TTP otherwise thoracolumbar spine NTTP. Mildly TTP posterior left hip. NEUROLOGICAL: AAOx3. Speech clear & appropriate. Sensation intact to light touch to all extremities except bottom of left foot decreased. Motor strength 5/5 to all major flexion & extension muscle groups except left 2nd-5th toes 4/5 and hand intrinsics/extrinsics bilaterally & left great toe 3/ 5. (Vamsi Pino) Lab, Micro, Other Results Recent Impressions Soft Tissue Ultrasound 06/01/17 0000 Signed Impressions: Service Date/Time: Thursday, June 01, 2017 18:29 - CONCLUSION: Umbilical hernia again noted. At the time of the ultrasound, peristalsing bowel loops are present in the hernia sac. Mario Moreno MD Laboratory Tests Test 05/31/17 06:30 06/01/17 04:36 06/02/17 05:46 White Blood Count 5.3 TH/MM3 5.6 TH/MM3 Red Blood Count 2.64 MIL/MM3 3.50 MIL/MM3 Hemoglobin 7.3 GM/DL 9.0 GM/DL Hematocrit 22.0 % 28.0 % Mean Corpuscular Volume 83.4 FL 80.2 FL Mean Corpuscular Hemoglobin 27.5 PG 25.8 PG Mean Corpuscular Hemoglobin Concent 33.0 % 32.2 % Red Cell Distribution Width 17.3 % 17.9 % Platelet Count 261 TH/MM3 320 TH/MM3 Mean Platelet Volume 6.0 FL 5.8 FL Neutrophils (%) (Auto) 72.4 % 70.6 % Lymphocytes (%) (Auto) 12.4 % 15.2 % Monocytes (%) (Auto) 8.1 % 7.0 % Eosinophils (%) (Auto) 6.6 % 6.6 % Basophils (%) (Auto) 0.5 % 0.6 % Neutrophils # (Auto) 3.9 TH/MM3 4.0 TH/MM3 Lymphocytes # (Auto) 0.7 TH/MM3 0.9 TH/MM3 Monocytes # (Auto) 0.4 TH/MM3 0.4 TH/MM3 Eosinophils # (Auto) 0.4 TH/MM3 0.4 TH/MM3 Basophils # (Auto) 0.0 TH/MM3 0.0 TH/MM3 CBC Comment DIFF FINAL DIFF FINAL Differential Comment Blood Urea Nitrogen 58 MG/DL 52 MG/DL 46 MG/DL Creatinine 3.46 MG/DL 3.88 MG/DL 3.64 MG/DL Random Glucose 117 MG/DL 105 MG/DL 90 MG/DL Albumin 2.1 GM/DL 2.5 GM/DL Calcium Level 8.0 MG/DL 9.1 MG/DL 9.0 MG/DL Phosphorus Level 4.8 MG/DL 4.3 MG/DL Sodium Level 137 MEQ/L 137 MEQ/L 134 MEQ/L Potassium Level 4.1 MEQ/L 4.4 MEQ/L 4.2 MEQ/L Chloride Level 102 MEQ/L 101 MEQ/L 99 MEQ/L Carbon Dioxide Level 26.1 MEQ/L 26.5 MEQ/L 28.5 MEQ/L Anion Gap 9 MEQ/L 10 MEQ/L 7 MEQ/L Estimat Glomerular Filtration Rate 19 ML/MIN 16 ML/MIN 17 ML/MIN (Vamsi Pino) Medical Decision Making Impression and Plan Impression: 1. Mild T1 compression fracture without significant retropulsion. 2. Significant cervical spondylosis and degenerative disc disease with question of previous discitis 3. L4 5 severe degenerative changes with question of previous discitis. 4. Probable chronic left L5 radiculopathy with motor deficit 5. Left gluteal myofascial injury. Probable mild left sciatic nerve contusion. Patient continues to do well and remains neurologically stable. Plan: Primary management per Hospitalist. Critical care management per [employer]. [place] J cervical collar. Mobilise patient w/assistance. PT eval & tx. (Vamsi Pino) Attending Statement The exam, history, and the medical decision-making described in the above note were completed with the assistance of the mid-level provider. I reviewed and agree with the findings presented. I attest that I had a [id number] encounter with the patient on the same day, and personally performed and documented my assessment and findings in the medical record. Persistent exam findings consistent with left gluteal myofascial pain. Probable chronic left L5 radiculopathy Continuing conservative treatment for T1 fracture Mobilize out of bed as tolerated Continue therapy (Marko Hill MD) Vamsi Pino Jun 02, 2017 10:13 Marko Hill MD Jun 23, 2017 06:58
[2017-06-02] MEDS: FLUCONAZOLE 400 MG PREMIX BAG 200 ML IV SCH (11:26)
--- NOTE | 2017-06-02 13:27 | HHI.PR ---
Subjective Remarks f/u pain, hypertension, umbilical hernia Pain has improved at the umbilical hernia site. Deny nausea or vomiting. Patient had one bowel movement. Tolerating his diet. Patient remains afebrile. Dealt with patient's nurse. Objective Vitals Vital Signs Date Time Temp Pulse Resp B/P (MAP) Pulse Ox O2 Delivery O2 Flow Rate FiO2 06/02/17 12:00 91 06/02/17 12:00 97.6 84 17 162/72 (102) 98 06/02/17 08:13 98 Nasal Cannula 2.00 06/02/17 08:00 97.6 84 17 162/72 (102) 98 06/02/17 08:00 84 06/02/17 07:00 98 Nasal Cannula 2.00 06/02/17 04:00 86 06/02/17 04:00 97.7 86 15 168/85 (112) 96 06/02/17 02:00 84 06/02/17 00:00 98.1 82 14 168/81 (110) 98 06/02/17 00:00 82 06/01/17 22:00 84 06/01/17 21:00 15 06/01/17 20:41 97 Nasal Cannula 3.00 06/01/17 20:00 82 06/01/17 20:00 98.3 82 14 172/81 (111) 94 06/01/17 19:00 94 Room Air 06/01/17 18:00 85 06/01/17 16:00 82 06/01/17 16:00 98.5 82 17 161/83 (109) 94 06/01/17 14:00 86 I/O 06/01/17 06/01/17 06/01/17 06/02/17 06/02/17 06/02/17 07:00 15:00 23:00 07:00 15:00 23:00 Intake Total 1162 ml 300 ml 850 ml 867 ml 231.7 ml Output Total 2000 ml 1250 ml 1300 ml Balance -838 ml 300 ml -400 ml -433 ml 231.7 ml Intake Oral 960 ml 750 ml 720 ml IV Total 202 ml 300 ml 100 ml 147 ml 231.7 ml Output Urine Total 2000 ml 1250 ml 1300 ml # Bowel Movements 0 1 Result Diagram: 06/01/17 0436 06/02/17 0546 Objective Remarks GENERAL: This is a well-nourished, well-developed patient, in a c-collar in place in no acute distress but is complaining of pain NECK: Trachea midline. No JVD or lymphadenopathy. Supple, nontender, no meningeal signs. CARDIOVASCULAR: Regular rate and rhythm without murmurs, gallops, or rubs. RESPIRATORY: CTA B/L GASTROINTESTINAL: Abdomen soft and nondistended. Minimal tenderness to palpation at the umbilical hernia site and able to reduce it more but not completely. No hepato-splenomegaly, or palpable masses. Negative peritoneal signs. MUSCULOSKELETAL:B/L lower extremity full range of motion. Tenderness palpation in the left gluteal area. NEUROLOGICAL: Awake and alert. Cranial nerves II through XII intact. Motor and sensory grossly within normal limits. Five out of 5 muscle strength in all muscle groups. Normal speech. Medications and IVs Current Medications Morphine Sulfate (Morphine Inj) 2 mg ONCE ONCE IV Last administered on 05:04; Start 05/25/17 at 04:00; Stop 05/25/17 at 04:01; Status DC Ondansetron HCl (Zofran Inj) 4 mg ONCE ONCE IVP Last administered on 05:04; Start 05/25/17 at 04:00; Stop 05/25/17 at 04:01; Status DC Sodium Chloride (NS Flush) 2 ml UNSCH PRN IVF FLUSH AFTER USING IV ACCESS; Start 05/25/17 at 04:00; Stop 05/25/17 at 09:34; Status DC Sodium Chloride 1,000 ml @ 100 mls/hr Q10H IV Last administered on 05/25/17 21:45; Start 05/25/17 at 04:00; Stop 05/26/17 at 10:43; Status DC Sodium Chloride 1,000 ml @ 999 mls/hr BOLUS ONCE IV Last administered on 05/25 05:52; Start 05/25/17 at 05:45; Stop 05/25/17 at 06:45; Status DC Ondansetron HCl (Zofran Inj) 4 mg ONCE ONCE IV PUSH Last administered on 05:52; Start 05/25/17 at 05:45; Stop 05/25/17 at 05:46; Status DC Morphine Sulfate (Morphine Inj) 4 mg ONCE ONCE IV PUSH Last administered on 05:52; Start 05/25/17 at 05:45; Stop 05/25/17 at 05:46; Status DC Hydromorphone HCl (Dilaudid Pf Inj) 0.5 mg ONCE ONCE IV PUSH Last administered on 05/25/17 06:42; Start 05/25/17 at 06:45; Stop 05/25/17 at 06:46 ; Status DC Sodium Chloride (NS Flush) 2 ml BID IV FLUSH Last administered on 06/02/17 09: 00; Start 05/25/17 at 09:00 Sodium Chloride (NS Flush) 2 ml UNSCH PRN IVF FLUSH AFTER USING IV ACCESS; Start 05/25/17 at 07:30 Ceftriaxone Sodium 1000 mg/ Sodium Chloride 100 ml @ 200 mls/hr ONCE ONCE IV Last administered on 05/25/17 07:48; Start 05/25/17 at 07:45; Stop 05/25/17 at 08:14; Status DC Ondansetron HCl (Zofran Inj) 4 mg ONCE ONCE IV PUSH Last administered on 08:07; Start 05/25/17 at 08:00; Stop 05/25/17 at 08:01; Status DC Hydromorphone HCl (Dilaudid Pf Inj) 1 mg ONCE ONCE IV PUSH Last administered on 05/25/17 08:07; Start 05/25/17 at 08:00; Stop 05/25/17 at 08:01; Status DC Sodium Chloride 250 ml @ 15 mls/hr ONCE ONCE IV Last administered on 08:45; Start 05/25/17 at 08:45; Stop 05/26/17 at 01:24; Status DC Ceftriaxone Sodium 1000 mg/ Sodium Chloride 100 ml @ 200 mls/hr Q24H IV Last administered on 05/28/17 09:33; Start 05/26/17 at 08:00; Stop 05/29/17 at 17:39 ; Status DC Sodium Chloride 1,000 ml @ 100 mls/hr Q10H IV ; Start 05/25/17 at 08:38; Stop 05/26/17 at 10:43; Status DC Sodium Chloride (NS Flush) 2 ml UNSCH PRN IV FLUSH FLUSH AFTER USING IV ACCESS ; Start 05/25/17 at 08:45; Stop 05/25/17 at 09:33; Status DC Sodium Chloride (NS Flush) 2 ml BID IV FLUSH ; Start 05/25/17 at 09:00; Stop 07/01 at 09:33; Status DC Acetaminophen (Tylenol) 650 mg Q4H PRN PO TEMP > 100.4; Start 05/25/17 at 08:45 Ondansetron HCl (Zofran Inj) 4 mg Q6H PRN IVP NAUSEA OR VOMITING; Start at 08:45 Acetaminophen/ Hydrocodone Bitart ([place] 5-325 Mg) 1 tab Q4H PRN PO PAIN SCALE 3 TO 5; Start 05/25/17 at 08:45; Stop 05/25/17 at 13:15; Status DC Acetaminophen/ Hydrocodone Bitart ([place] 10-325 Mg) 1 tab Q4H PRN PO PAIN SCALE 6 TO 10 Last administered on 05/25/17 09:40; Start 05/25/17 at 08:45; Stop 05/25/17 at 13:15; Status DC Naloxone HCl (Narcan Inj) 0.4 mg UNSCH PRN IV SEE LABEL COMMENTS; Start at 08:45 Senna/Docusate Sodium ([place]-Colace) 1 tab BID PO Last administered on 07:46; Start 05/25/17 at 10:00; Stop 06/01/17 at 12:53; Status DC Magnesium Hydroxide (Milk Of Magnesia Liq) 30 ml Q12H PRN PO MILD - MODERATE CONSTIPATION Last administered on 06/01/17 20:03; Start 05/25/17 at 08:45 Sennosides (Senokot) 17.2 mg Q12H PRN PO MODERATE - SEVERE CONSTIPATION; Start 05/25/17 at 08:45 Bisacodyl (Dulcolax Supp) 10 mg DAILY PRN RECTAL SEVERE CONSITIPATION; Start at 08:45 Lactulose (Lactulose Liq) 30 ml DAILY PRN PO SEVERE CONSITIPATION Last administered on 06/01/17 22:48; Start 05/25/17 at 08:45 Albuterol/ Ipratropium (Duoneb Neb) 1 ampule Q2HR NEB PRN NEB dyspnea; Start at 08:45 Dextrose (D50w (Vial) Inj) 50 ml UNSCH PRN IV HYPOGLYCEMIA-SEE COMMENTS; Start 05/25/17 at 08:45 Glucagon (Glucagon Inj) 1 mg UNSCH PRN OTHER HYPOGLYCEMIA-SEE COMMENTS; Start 05/25/17 at 08:45 Insulin Aspart (NovoLOG SUPPLEMENTAL SCALE) 1 ACHS SLIDING SCALE SQ Last administered on 05/27/17 17:24; Start 05/25/17 at 11:00; Stop 05/29/17 at 11:07 ; Status DC Hydromorphone HCl (Dilaudid Pf Inj) 1 mg Q4H PRN IV PUSH pain 4-10 Last administered on 05/26/17 06:15; Start 05/25/17 at 13:15; Stop 05/26/17 at 10:43 ; Status DC Oxycodone/ Acetaminophen (Percocet 10-325 Mg) 1 tab Q4H PRN PO pain 8-10 Last administered on 05/28/17 22:57; Start 05/25/17 at 13:15; Stop 05/29/17 at 10:48 ; Status DC Cyclobenzaprine HCl (Flexeril) 5 mg Q8HR PO Last administered on 05/28/17 22: 56; Start 05/25/17 at 14:00; Stop 05/29/17 at 10:48; Status DC Albuterol/ Ipratropium (Duoneb Neb) 1 ampule Q4HR WHILE AWAKE NEB NEB Last administered on 05/29/17 07:31; Start 05/25/17 at 16:00; Stop 05/29/17 at 15:59 ; Status DC Amlodipine Besylate (Norvasc) 2.5 mg DAILY PO Last administered on 06/01/17 07 :46; Start 05/25/17 at 13:30; Stop 06/01/17 at 11:41; Status DC Buspirone HCl (Buspar) 10 mg TID PO Last administered on 06/02/17 12:41; Start 05/25/17 at 18:00 Doxazosin Mesylate (Cardura) 4 mg HS PO Last administered on 06/01/17 20:00; Start 05/25/17 at 21:00 Gabapentin (Neurontin) 300 mg BID PO Last administered on 05/28/17 22:56; Start 05/25/17 at 13:30; Stop 05/29/17 at 11:07; Status DC Pravastatin Sodium (Pravachol) 40 mg DAILY PO Last administered on 06/02/17 08 :20; Start 05/26/17 at 09:00 Ferrous Sulfate (Ferrous Sulfate) 325 mg BID PO Last administered on 06/02/17 08:20; Start 05/25/17 at 21:00 Miscellaneous (Pill Splitter) 1 ea UNSCH PRN OTHER SEE LABEL COMMENTS Last administered on 05/30/17 11:51; Start 05/25/17 at 13:45 Ketorolac Tromethamine (Toradol Inj) 15 mg Q6HR IV PUSH Last administered on 18:19; Start 05/26/17 at 00:00; Stop 05/27/17 at 18:01; Status DC Oxycodone/ Acetaminophen (Percocet 5-325 Mg) 1 tab Q4H PRN PO pain 1-7; Start 05/26/17 at 10:45; Stop 05/29/17 at 10:48; Status DC Morphine Sulfate (Oramorph Sr) 15 mg Q12HR PO Last administered on 05/28/17 22 :56; Start 05/26/17 at 21:00; Stop 05/29/17 at 10:48; Status DC Lorazepam (Ativan Inj) 2 mg STK-MED ONCE .ROUTE Last administered on 05/29/17 09:09; Start 05/29/17 at 09:07; Stop 05/29/17 at 09:08; Status DC Phenytoin Sodium 1000 mg/Sodium Chloride 120 ml @ 240 mls/hr STAT ONCE IV Last administered on 05/29/17 09:42; Start 05/29/17 at 09:30; Stop 05/29/17 at 09:59; Status DC Etomidate (Amidate Inj) 40 mg STK-MED ONCE .ROUTE ; Start 05/29/17 at 10:37; Stop 05/29/17 at 10:38; Status DC Fentanyl Citrate (fentaNYL INJ) 100 mcg STK-MED ONCE .ROUTE ; Start 05/29/17 at 10:37; Stop 05/29/17 at 10:38; Status DC Rocuronium [place] (Zemuron Inj) 50 mg STK-MED ONCE .ROUTE ; Start 05/29/17 at 10:40; Stop 05/29/17 at 10:41; Status DC Propofol 100 ml @ As Directed STK-MED ONCE .ROUTE ; Start 05/29/17 at 10:43; Stop 05/29/17 at 10:44; Status DC Lorazepam (Ativan Inj) 1 mg NOW ONCE IV ; Start 05/29/17 at 11:00; Stop at 11:01; Status DC Chlorhexidine Gluconate (Peridex 0.12% Liq) 15 ml BID@08,20 MT Last administered on 06/02/17 08:00; Start 05/29/17 at 20:00 Propofol 100 ml @ 3 mls/hr TITRATE PRN IV SEDATION Last administered on 06:30; Start 05/29/17 at 11:15 Gabapentin (Neurontin) 100 mg BID PO Last administered on 06/02/17 08:20; Start 05/29/17 at 21:00 Insulin Aspart (NovoLOG SUPPLEMENTAL SCALE) 1 Q6HR SQ Last administered on 06/02 11:41; Start 05/29/17 at 12:00 Phenytoin Sodium (Dilantin Inj) 100 mg Q8HR IV Last administered on 05/30/17 13:31; Start 05/29/17 at 19:00; Stop 05/30/17 at 15:48; Status DC Piperacillin Sod/ Tazobactam Sod 50 ml @ 100 mls/hr Q6H IV Last administered on 06/02/17 13:00; Start 05/29/17 at 20:00 Albuterol/ Ipratropium (Duoneb Neb) 1 ampule Q6HR NEB NEB Last administered on 06/02/17 08:12; Start 05/29/17 at 17:45 Albuterol/ Ipratropium (Duoneb Neb) 1 ampule Q2HR NEB PRN NEB wheezing; Start 05/29/17 at 17:45 Sodium Polystyrene Sulfonate (Kayexalate Liq) 30 gm Q2HR PO Last administered on 05/29/17 20:00; Start 05/29/17 at 18:00; Stop 05/30/17 at 03:25; Status DC Fluconazole/ Sodium Chloride 200 ml @ 100 mls/hr Q24H IV Last administered on 06/02/17 11:26; Start 05/30/17 at 11:00 Oxycodone/ Acetaminophen (Percocet 10-325 Mg) 1 tab Q4H PRN PO pain scale 4-10 Last administered on 06/02/17 09:42; Start 05/30/17 at 11:00 Levofloxacin/ Dextrose 50 ml @ 50 mls/hr Q48H IV Last administered on 21:26; Start 05/30/17 at 21:00 Hydralazine HCl (Apresoline Inj) 10 mg Q1HR PRN IV PUSH SBP>160, DBP>90 Last administered on 06/02/17 02:04; Start 05/31/17 at 06:00 Amlodipine Besylate (Norvasc) 10 mg DAILY PO Last administered on 06/02/17 08: 20; Start 06/01/17 at 11:45 Senna/Docusate Sodium ([place]-Colace) 2 tab BID PO Last administered on 08:20; Start 06/01/17 at 21:00 Bisacodyl (Dulcolax Supp) 10 mg ONCE ONCE RECTAL Last administered on 13:53; Start 06/01/17 at 12:45; Stop 06/01/17 at 12:48; Status DC Clonidine (Catapres) 0.1 mg Q6H PRN PO FOR SBP > 160 Last administered on 00:28; Start 06/02/17 at 00:15 A/P Assessment and Plan 57-year-old male who initially presented with presented with mechanical fall that resulted and a T1 nondisplaced fracture later developed encephalopathy Metabolic encephalopathy, RESOLVED. -due to infection. -Neurologist was consulted and initially he was treated empirically for seizure but that was ruled out. EEG was negative for any epilepsy. Asterixis -Seemed to resolve. Per neurologist most likely secondary to metabolic encephalopathy. Acute respiratory failure with hypoxia -Status post intubation and extubation -Most likely secondary to aspiration pneumonia. -Resolved. Aspiration pneumonia -Infectious disease following. Sputum cultures grew MRSA. -Patient on Levaquin, Zosyn. -Clinically improving pending sensitivity. -Will need to be cautious with antibiotic choice secondary to chronic kidney disease due to polycystic kidney disease. -Antibiotics per infectious disease. Umbilical hernia -Pain improved today. -General surgeon consulted. Pending consultation. Constipation -On [place]-Colace. Had one bowel movement today. Continue current regimen. UTI -Grew Irina albicans. On fluconazole. -Infectious disease following. Nondisplaced with mild compression of T1 vertebrae -Neurosurgeon following. -Per neurosurgeon continue conservative treatment with medications, therapy. -Continue cervical brace for T1 fracture -Mobilized out of bed with brace Gluteal myofascia pain secondary to trauma -Hip and femur x-ray was negative -Will need PT. COPD/asthma -on duonebs. -At home he is on albuterol for this. -Smoking cessation. Acute on Chronic kidney disease secondary to polycystic kidney disease -Investment Specialist following. -Continue to monitor creatinine. Avoid nephrotoxins. Strict ins and outs. -Per registration scheduling specialist kidney failures advanced and patient may need dialysis. Hypertension/hypertensive renal disease -Uncontrolled better control with increase in amlodipine. Continue to monitor. Anemia, symptomatic -Patient has a history of iron deficiency anemia secondary to polycystic kidney disease and is noncompliant with treatment.. No signs of active bleeding. -Status post transfusion with packed red blood cells and responded appropriately. Tobacco dependence -Encourage smoking cessation. Patient is already trying to quit. He declined any nicotine patch. Type 2 diabetes - glipizide held. -Continue with insulin sliding scale. Will adjust insulin based on Accu-Cheks. Polycystic kidney disease/polycystic liver disease/hyperlipidemia/hypertension/ anxiety -Continue home medication. DVT prophylaxis - SCDs/ALIRIO. Mary Ellen Benites MD Jun 02, 2017 13:27
--- NOTE | 2017-06-02 13:38 | HHI.IDPN ---
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 He immediately had an acute onset of back pain and left hip pain. He went to bed the night of admission, and the pain worsened that he couldn't get up. Patient was taken to the hospital by EMS. His initial chest x-ray showed a nondisplaced C1 fracture. He was also complaining of pain in the neck. Patient was seen by neurosurgery, and no surgical intervention was required. A cervical collar was placed. Last night patient became unresponsive and was noted to have seizures. He was transferred to the intensive care unit and got intubated. CT of the head was negative. Neurology saw the patient, and patient currently is on anticonvulsant regimen. There has been no recurrent seizures since. He was successfully extubated today. Howell catheter was inserted when he got intubated, and his urine was very purulent. Patient has been on antibiotics since admission. His antibiotic was changed yesterday. He had some low-grade temps last night. Chest x-ray showing basilar atelectasis bilaterally when he got intubated. Patient also underwent CT of the abdomen and pelvis when he initially presented, and there was no intra-abdominal injuries seen, he has evidence of cystic disease in the liver and kidney, and he has nonobstructing kidney stones. Notes reviewed To be transferred out of ICU Temps ok BP ok On nasal O2 Last UC with Irina albicans Sputum C/S light MRSA, G/S only few WBC WBC normal Creatinine slowly decreasing UO good Antibiotics Levaquin Zosyn Diflucan Past Medical History Umbilical hernia Hypertension Chronic pain from L4/L5 COPD/asthma Anxiety disorder Iron deficiency anemia Polycystic kidney disease Polyp cystic liver disease Hyperlipidemia Type 2 diabetes Past Surgical History Right wrist surgery Bilateral knee arthroscopy Allergies: Coded Allergies: No Known Allergies (Unverified , 10/01/16) Objective . Vital Signs Date Time Temp Pulse Resp B/P (MAP) Pulse Ox O2 Delivery O2 Flow Rate FiO2 06/02/17 12:00 91 06/02/17 12:00 97.6 84 17 162/72 (102) 98 06/02/17 08:13 98 Nasal Cannula 2.00 06/02/17 08:00 97.6 84 17 162/72 (102) 98 06/02/17 08:00 84 06/02/17 07:00 98 Nasal Cannula 2.00 06/02/17 04:00 86 06/02/17 04:00 97.7 86 15 168/85 (112) 96 06/02/17 02:00 84 06/02/17 00:00 98.1 82 14 168/81 (110) 98 06/02/17 00:00 82 06/01/17 22:00 84 06/01/17 21:00 15 06/01/17 20:41 97 Nasal Cannula 3.00 06/01/17 20:00 82 06/01/17 20:00 98.3 82 14 172/81 (111) 94 06/01/17 19:00 94 Room Air 06/01/17 18:00 85 06/01/17 16:00 82 06/01/17 16:00 98.5 82 17 161/83 (109) 94 06/01/17 14:00 86 06/02/17 06/02/17 06/03/17 15:00 23:00 07:00 Intake Total 231.7 ml Balance 231.7 ml IV Total 231.7 ml . Laboratory Tests Test 06/01/17 04:36 White Blood Count 5.6 TH/MM3 Red Blood Count 3.50 MIL/MM3 Hemoglobin 9.0 GM/DL Hematocrit 28.0 % Mean Corpuscular Volume 80.2 FL Mean Corpuscular Hemoglobin 25.8 PG Mean Corpuscular Hemoglobin Concent 32.2 % Red Cell Distribution Width 17.9 % Platelet Count 320 TH/MM3 Mean Platelet Volume 5.8 FL Neutrophils (%) (Auto) 70.6 % Lymphocytes (%) (Auto) 15.2 % Monocytes (%) (Auto) 7.0 % Eosinophils (%) (Auto) 6.6 % Basophils (%) (Auto) 0.6 % Neutrophils # (Auto) 4.0 TH/MM3 Lymphocytes # (Auto) 0.9 TH/MM3 Monocytes # (Auto) 0.4 TH/MM3 Eosinophils # (Auto) 0.4 TH/MM3 Basophils # (Auto) 0.0 TH/MM3 CBC Comment DIFF FINAL Differential Comment Laboratory Tests Test 06/01/17 04:36 06/02/17 05:46 Blood Urea Nitrogen 52 MG/DL 46 MG/DL Creatinine 3.88 MG/DL 3.64 MG/DL Random Glucose 105 MG/DL 90 MG/DL Calcium Level 9.1 MG/DL 9.0 MG/DL Sodium Level 137 MEQ/L 134 MEQ/L Potassium Level 4.4 MEQ/L 4.2 MEQ/L Chloride Level 101 MEQ/L 99 MEQ/L Carbon Dioxide Level 26.5 MEQ/L 28.5 MEQ/L Anion Gap 10 MEQ/L 7 MEQ/L Estimat Glomerular Filtration Rate 16 ML/MIN 17 ML/MIN Albumin 2.5 GM/DL Phosphorus Level 4.3 MG/DL Imaging Last Impressions Soft Tissue Ultrasound 06/01/17 0000 Signed Impressions: Service Date/Time: Thursday, June 01, 2017 18:29 - CONCLUSION: Umbilical hernia again noted. At the time of the ultrasound, peristalsing bowel loops are present in the hernia sac. Mario Moreno MD Renal Ultrasound 05/30/17 0000 Signed Impressions: Service Date/Time: Tuesday, May 30, 2017 12:12 - CONCLUSION: End-stage polycystic kidneys Mario Lam MD Head CT 05/29/17 0000 Signed Impressions: Service Date/Time: May 08:42 - CONCLUSION: 1. No acute infarct, acute hemorrhage, midline shift or extra-axial fluid collections. 2. Mucous retention cyst within the right maxillary sinus. 3. Nasal septal deviation to the right. Denilson Strickland MD Chest X-Ray 05/29/17 0000 Signed Impressions: Service Date/Time: May 11:15 - CONCLUSION: 1. ET tube in good position. 2. Bibasilar atelectasis. 3. No pneumothorax. Leonardo Avendano MD Femur X-Ray 05/25/17 1359 Signed Impressions: Service Date/Time: Thursday, May 25, 2017 14:32 - CONCLUSION: No acute disease. Charanjit Orr MD Lumbar Spine X-Ray 05/25/17 0351 Signed Impressions: Service Date/Time: Thursday, May 25, 2017 04:30 - CONCLUSION: Chronic appearing findings as above. No fracture or acute-appearing malalignment demonstrated of the lumbar spine. Mario Moreno MD Cervical Spine CT 05/25/17 0351 Signed Impressions: Service Date/Time: Thursday, May 25, 2017 04:11 - CONCLUSION: 1. Nondisplaced fracture with mild compression deformity of T1 vertebral body, probably acute. No epidural hematoma or retropulsed fracture fragments. 2. Other findings appear chronic and please see above. Mario Moreno MD Wrist X-Ray 05/25/17 0000 Signed Impressions: Service Date/Time: Thursday, May 25, 2017 04:33 - CONCLUSION: 1. There is soft tissue swelling but I don't see an acute fracture or subluxation of the right wrist. 2. Chronic appearing destruction of the lunate and scaphoid, nonspecific but possibly related to old trauma or chronic arthropathy. Mario Moreno MD Hip and Pelvis X-Ray 05/25/17 0000 Signed Impressions: Service Date/Time: Thursday, May 25, 2017 04:22 - CONCLUSION: Pelvis and left hip are intact. Mario Moreno MD Abdomen/Pelvis CT 05/25/17 0000 Signed Impressions: Service Date/Time: Thursday, May 25, 2017 05:55 - CONCLUSION: 1. No visceral organ injury, fracture or other acute abnormality. 2. Degenerative changes of the lumbar spine, both hips and the pubic symphysis. There is considerable end plate irregularity at L4/L5, presumably reactive/degenerative but chronic discitis or the sequela of previous discitis could have a similar appearance. 3. Findings related to polycystic kidney disease with innumerable variable sized cysts throughout the liver and both kidneys noted. 4. Scattered sub-5 mm nonobstructing stones in both kidneys. 5. Nonspecific hepatosplenomegaly. Mario Moreno MD Physical Exam GENERAL: awake and alert. not in respiratory distress. SKIN: Warm and dry. No generalized rash HEAD: Atraumatic. Normocephalic. No temporal wasting, or tenderness. EYES: [place] conjunctiva. No petechia or hemorrhage. Pupils equal, round and reactive to light. Extraocular movements full and intact. No scleral icterus. No injection or drainage. EARS, NOSE AND THROAT: Nose without bleeding or purulent nasal discharge. No sinus tenderness. Has very dry oral mucosa. Has mild seborrheic dermatitis NECK: Wearing a cervical collar CARDIOVASCULAR: Soft heart sounds, limited exam due to diffuse rhonchi RESPIRATORY: Has diffuse rhonchi ABDOMEN: Distended, bowel sounds present and normoactive, ,not tender. No guarding. No rebound. Has a large umbilical hernia EXTREMITIES: No clubbing, cyanosis. Has bilateral pedal edema. No calf tenderness. Well perfused and warm. NEUROLOGICAL: Awake and alert. Cranial nerves grossly intact. Difficulty examining lower extremity due to severe back pain PSYCHIATRIC: Restless LINE: No evidence of infection : Howell in place, urine better Assessment & Plan Remarks IMPRESSION Sepsis, likely due to source - ?had urinary retention - S/P respiratory failure, CXR with basilar atelectasis Known COPD, smoker, prob with chronic bronchitis Seizure, etiology? Mild T1 compression fracture Cervical spondylosis Polycystic kidney disease CKD, ?worsened by retention RECOMMENDATION Stop Zosyn Continue Diflucan Continue Levaquin - change to po, give until 06/06 Repeat UA and determine duration of Diflucan Monitor progress Sunita Lai MD Jun 02, 2017 13:38
--- NOTE | 2017-06-02 16:19 | HHI.PR ---
Subjective Subjective Notes Resting in bed C/o back pain Objective Vitals/I&O Vital Signs Date Time Temp Pulse Resp B/P (MAP) Pulse Ox O2 Delivery O2 Flow Rate FiO2 06/02/17 15:21 94 Nasal Cannula 2.00 06/02/17 12:00 91 06/02/17 12:00 97.6 17 162/72 (102) 05/30/17 16:00 50 Labs Laboratory Tests Test 06/02/17 05:46 Blood Urea Nitrogen 46 Creatinine 3.64 Random Glucose 90 Albumin 2.5 Calcium Level 9.0 Phosphorus Level 4.3 Sodium Level 134 Potassium Level 4.2 Chloride Level 99 Carbon Dioxide Level 28.5 Anion Gap 7 Estimat Glomerular Filtration Rate 17 Date/Time Source Procedure Growth Status 05/25/17 08:00 Blood Peripheral Aerobic Blood Culture - Final NO GROWTH IN 5 DAYS Complete 05/25/17 08:00 Blood Peripheral Anaerobic Blood Culture - Final NO GROWTH IN 5 DAYS Complete 05/29/17 11:00 Sputum Endotracheal Gram Stain - Final Complete 05/29/17 11:00 Sputum Culture - Final S. Aureus Mrsa Complete 05/29/17 11:15 Urine Catheterized Urine Urine Culture - Final Irina Albicans Complete Cardiovascular: Regular Lungs: Clear Abdomen: Other (large reducible umbilical hernia ) Extremities: No edema Narrative Exam [place] J collar in place A/P Assessment and Plan 57 year old male s/p fall with T1 nondisplaced fracture; incidental finding of reducible umbilical hernia -T1 fracture management per Neurosurgery -Tolerating regular diet -+BM -No signs of obstruction or incarceration -No surgical plans at this time -Patient can follow up in a few weeks after recovery from back injury -GS will sign off; Please call with questions Attending Statement back pain, t spine fx PLAN will consider elective repair following resolution of acute issues will s/o Attestation The exam, history, and the medical decision-making described in the above note were completed with the assistance of the mid-level provider. I reviewed and agree with the findings presented. I attest that I had a [id number] encounter with the patient on the same day, and personally performed and documented my assessment and findings in the medical record. Mercedes Estes Jun 02, 2017 16:19 Gorge Astudillo MD Jun 09, 2017 14:47
[2017-06-02 17:50] LABS: BACTERIA, URINE RARE /hpf; BLOOD, URINE MOD (NEG); GLUCOSE,URINE NEG (NEG); KETONE, URINE NEG (NEG); NITRITE,URINE NEG (NEG); URINE COLOR LIGHT-YELLOW (YELLW/STRAW)
--- NOTE | 2017-06-02 18:52 | HHI.NPPN ---
Review of Systems General Constitutional: Fatigue Gastrointestinal Gastrointestinal: Abdominal Pain Musculoskeletal MS: Pain/Stiffness Objective Data Data 06/02/17 06/03/17 19:00 07:00 Intake Total 231.7 ml Balance 231.7 ml IV Total 231.7 ml Vital Signs Date Time Temp Pulse Resp B/P (MAP) Pulse Ox O2 Delivery O2 Flow Rate FiO2 06/02/17 16:00 98.2 90 18 163/82 (109) 96 06/02/17 15:21 94 Nasal Cannula 2.00 06/02/17 12:00 91 06/02/17 12:00 97.6 84 17 162/72 (102) 98 06/02/17 08:13 98 Nasal Cannula 2.00 06/02/17 08:00 97.6 84 17 162/72 (102) 98 06/02/17 08:00 84 06/02/17 07:00 98 Nasal Cannula 2.00 06/02/17 04:00 86 06/02/17 04:00 97.7 86 15 168/85 (112) 96 06/02/17 02:00 84 06/02/17 00:00 98.1 82 14 168/81 (110) 98 06/02/17 00:00 82 06/01/17 22:00 84 06/01/17 21:00 15 06/01/17 20:41 97 Nasal Cannula 3.00 06/01/17 20:00 82 06/01/17 20:00 98.3 82 14 172/81 (111) 94 06/01/17 19:00 94 Room Air -: 06/01/17 0436 06/02/17 0546 Physical Exam General Appearance: Well Developed, No Acute Distress Pulmonary Resp Exam: Clear Bilaterally Cardiology CV Exam: Regular, Normal Sinus Rhythm Gastrointestinal/Abdomen GI Exam: Soft, Bowel Sounds Present, Distended, Mass Present (umblical hernia) Neurologic Neuro Exam: Moving All Extremities Assessment/Plan Problem List: (1) Acute kidney injury ICD Codes: N17.9 - Acute kidney failure, unspecified Status: Acute Plan: Patient has advanced kidney disease and may be nearing the need for dialysis. He appears to have urinary tract infection and sepsis Now on Levaquin which will penetrate the cysts better. Cultures have been negative Follow BMP Encourage oral intake Avoid nephrotoxins He was taking diclofenac as an outpatient which has been discontinued He also has underlying diabetes [place] and flucon[place] was added No immediate need for dialysis. discussed options he needs to [facility] option of dialysis and transplant for future was discussed he has a daughter who is 25 but I told him she will need screening for PCKD (2) Polycystic liver disease ICD Codes: Q44.6 - Cystic disease of liver Status: Acute Plan: Due to polycystic disease (3) Hypertension ICD Codes: I10 - Essential (primary) hypertension Status: Acute Plan: Continue to monitor (4) Intractable pain ICD Codes: R52 - Pain, unspecified Status: Acute Plan: Continue monitor (5) UTI (urinary tract infection) ICD Codes: N39.0 - Urinary tract infection, site not specified Status: Acute Plan: Now on Levaquin. Zosyn can be stopped. Maggie Mike MD Jun 02, 2017 18:52
[2017-06-02] MEDS: DOXAZOSIN MESYLATE 4 MG TAB PO SCH (21:48)
[2017-06-02] MEDS ORDERED: HYDROmorphone HCL PF 1 MG/ML VIAL IV PUSH ONE (23:00)
[2017-06-03] VITALS (8 sets, daily range): BP systolic 16–183; BP diastolic 82–91; PULSE 84–98; RESP 15–20; TEMP 97.2–98.3; O2SAT 90–94
[2017-06-03] MEDS: oxyCODONE/ACETAMINOPHEN 10 MG/325 MG TAB PO PRN ×5 (00:22→21:30)
[2017-06-03] MEDS: PIPERACIL-TAZO 2.25 GM PREMIX 50 ML IV SCH ×2 (02:06→08:16)
[2017-06-03] MEDS: cloNIDine HCL 0.1 MG TAB PO PRN (02:08)
[2017-06-03] MEDS: INSULIN ASPART SUPPLEMENTAL SCALE SQ SCH ×5 (06:00→17:49)
[2017-06-03] MEDS: CHLORHEXIDINE 0.12% (ORAL KIT) 15 ML CUP MT SCH ×2 (08:00→20:00)
[2017-06-03] MEDS: busPIRone HCL 10 MG TAB PO SCH ×3 (08:16→17:49)
[2017-06-03] MEDS: FERROUS SULFATE 325 MG (65 MG ELEMENTAL IRON) TAB PO SCH ×2 (08:16→21:30)
[2017-06-03] MEDS: DOCUSATE SODIUM 50 MG/SENNA 8.6 MG TAB PO SCH ×2 (08:17→21:00)
[2017-06-03] MEDS: FLUCONAZOLE 100 MG TAB PO SCH (08:17)
[2017-06-03] MEDS: GABAPENTIN 100 MG CAP PO SCH ×2 (08:17→21:30)
[2017-06-03] MEDS: PRAVASTATIN SOD 40 MG TAB PO SCH (08:17)
[2017-06-03] MEDS: SODIUM CHLORIDE 0.9% FLUSH 10 ML FLUSH IV FLUSH SCH ×2 (08:19→21:00)
--- NOTE | 2017-06-03 09:52 | MB ---
cc: TAHIRA MENDEZ MD DATE OF CONSULTATION 06/01/2017 REASON FOR CONSULTATION Umbilical hernia, concern for incarceration. HISTORY OF PRESENT ILLNESS The patient is a 57-year-old male with multiple medical issues including polycystic kidney disease, COPD, hypertension. The patient presented to the hospital with T1 nondisplaced fracture after a fall. He has been followed by several medical staff include Neurosurgery to recommends a brace. Concern also neurologically as the patient has altered mental status, transferred to the ICU. I am currently seeing him in the ICU as result of concern for seizure versus stroke. The patient on seizure precautions. Currently on my exam the patient is awake and cooperative and following commands. He does complain of intermittent twinges throughout his spine with pain. He does note umbilical hernia. He said the hernia has been present for approximately three years. He states it continues to increase in size, located at the umbilicus. He notes usually is reducible. However, this morning he stated it was unable to be reduced and he had significant pain 07/10 and sharp, located in the umbilicus, better with lying still, worse with movement. The patient has noted that he has since been able to reduce it this afternoon. He denies any obstructive symptoms such as nausea, vomiting or change in bowel habits. Other medical issues includes history of smoking dependence, COPD, diabetes. The patient further denies fevers or chills but is currently being treated for UTI with Rocephin. PAST MEDICAL HISTORY 1. Hypertension. 2. Chronic back pain. 3. COPD. 4. Asthma. 5. Anxiety disorder. 6. Iron-deficiency anemia. 7. Polycystic kidney disease. 8. Polycystic liver disease. 9. Hyperlipidemia. 10. Type 2 diabetes. SURGICAL HISTORY 1. Right wrist surgery. 2. Bilateral knee arthroscopy. 3. Bilateral inguinal hernia repairs. MEDICATIONS See EMR. ALLERGIES No known drug allergies. SOCIAL HISTORY History of smoking. Denies EtOH or IVDA. FAMILY HISTORY Denies hypertension, diabetes. REVIEW OF SYSTEMS GENERAL: No acute distress. HEENT: Denies eye pain, ear pain. NECK: In [place] J collar. CHEST: History of COPD, asthma. Complained of cough. CARDIOVASCULAR: Denies chest pain or palpitation. GI: Complains of umbilical hernia. Denies nausea, vomiting. EXTREMITIES: Denies arthralgias, myalgias. : UTI, but denies dysuria. ENDOCRINE: Denies polyuria, polydipsia, positive diabetes. PHYSICAL EXAMINATION GENERAL: The patient in no acute distress. HEENT: Pupils equal, reactive. NECK: [place] J collar in place. Trachea midline. LUNGS: Bilateral expansion. Scattered rhonchi. HEART: S1-S2, no murmur. ABDOMEN: Soft, mildly distended. Umbilical hernia noted fully reducible. Tenderness to palpation. No evidence of rebound or guarding. EXTREMITIES: Warm, well-perfused. NEUROLOGIC: Brace in place. C-collar in place. AAO x 3. INTEGUMENT: No obvious masses or lesions. LABORATORY/DIAGNOSTIC DATA WBC 5.3, hemoglobin 7.3, hematocrit 22, platelets 261. Sodium 137, potassium 4.1, chloride 102, BUN 58, creatinine 3.4, AST 30, ALT 20, alk phos 93, T-bili 0.3 INR 1. IMAGING STUDIES Imaging reviewed by myself. Patient with a CT scan on 05/25/2017 showing degenerative changes of the lumbar spine, endplate irregularity L4-5. Multiple polycystic kidney disease, multiple cysts on both liver and kidneys. Moderate-sized umbilical hernia, appearance of cutaneous fat on CT scan. Ultrasound reviewed by myself, 06/01/2017, umbilical hernia noted. Peristalsing bowel loops present. No evidence of obstruction. ASSESSMENT The patient is a 57-year-old male with multiple medical issues admitted for spinal fracture, history of polycystic kidney disease, history of smoking, diabetes, presents with reducible relatively large umbilical hernia. PLAN After full clinical radiologic and laboratory workup of the patient's above-named issues including reducible umbilical hernia, discussed in detail with the patient regarding hernia, its management, treatment and considerations. At this point recommend, since the hernia is fully reduced, for the patient to follow up in the office for elective repair of umbilical hernia. Discussed the patient needs to (1) Stop smoking, (2) make sure diabetes and kidney disease are under control and (3) get better from his acute injuries prior to embarking in any sort of umbilical hernia repair. Discussed with the patient that if the hernia does become incarcerated, which it is currently not, then we may need to do emergent operation; however, it is optimal to medically optimize first and we will treat this conservatively. The patient can follow up in my office. Thank you for the consultation. Lars MD TAMMY Stephenson/KAYY 9:17 AM 9:31 AM
[2017-06-03 10:09] LABS: BICARBONATE 27.4 MEQ/L (21.0-32.0); POTASSIUM 4.4 MEQ/L (3.5-5.1)
--- NOTE | 2017-06-03 11:26 | HHI.IDPN ---
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 He immediately had an acute onset of back pain and left hip pain. He went to bed the night of admission, and the pain worsened that he couldn't get up. Patient was taken to the hospital by EMS. His initial chest x-ray showed a nondisplaced C1 fracture. He was also complaining of pain in the neck. Patient was seen by neurosurgery, and no surgical intervention was required. A cervical collar was placed. Last night patient became unresponsive and was noted to have seizures. He was transferred to the intensive care unit and got intubated. CT of the head was negative. Neurology saw the patient, and patient currently is on anticonvulsant regimen. There has been no recurrent seizures since. He was successfully extubated today. Howell catheter was inserted when he got intubated, and his urine was very purulent. Patient has been on antibiotics since admission. His antibiotic was changed yesterday. He had some low-grade temps last night. Chest x-ray showing basilar atelectasis bilaterally when he got intubated. Patient also underwent CT of the abdomen and pelvis when he initially presented, and there was no intra-abdominal injuries seen, he has evidence of cystic disease in the liver and kidney, and he has nonobstructing kidney stones. Notes reviewed Temps ok BP ok No new complaints Repeat UA better Last UC with Irina albicans Sputum C/S light MRSA, G/S only few WBC WBC normal Creatinine slowly decreasing UO good Antibiotics Levaquin Diflucan Past Medical History Umbilical hernia Hypertension Chronic pain from L4/L5 COPD/asthma Anxiety disorder Iron deficiency anemia Polycystic kidney disease Polyp cystic liver disease Hyperlipidemia Type 2 diabetes Past Surgical History Right wrist surgery Bilateral knee arthroscopy Allergies: Coded Allergies: No Known Allergies (Unverified , 10/01/16) Objective . Vital Signs Date Time Temp Pulse Resp B/P (MAP) Pulse Ox O2 Delivery O2 Flow Rate FiO2 06/03/17 08:00 97.7 92 15 177/91 (119) 94 06/03/17 04:00 97.2 86 20 16/83 (61) 93 06/03/17 00:40 97.9 98 16 175/89 (117) 94 06/02/17 22:00 Nasal Cannula 2.00 06/02/17 21:10 102 06/02/17 16:00 98.2 90 18 163/82 (109) 96 06/02/17 15:21 94 Nasal Cannula 2.00 06/02/17 12:00 91 06/02/17 12:00 97.6 84 17 162/72 (102) 98 . Laboratory Tests Test 06/02/17 05:46 06/03/17 07:37 Blood Urea Nitrogen 46 MG/DL 40 MG/DL Creatinine 3.64 MG/DL 3.45 MG/DL Random Glucose 90 MG/DL 76 MG/DL Albumin 2.5 GM/DL Calcium Level 9.0 MG/DL 8.7 MG/DL Phosphorus Level 4.3 MG/DL Sodium Level 134 MEQ/L 137 MEQ/L Potassium Level 4.2 MEQ/L 4.4 MEQ/L Chloride Level 99 MEQ/L 102 MEQ/L Carbon Dioxide Level 28.5 MEQ/L 27.4 MEQ/L Anion Gap 7 MEQ/L 8 MEQ/L Estimat Glomerular Filtration Rate 17 ML/MIN 19 ML/MIN Imaging Last Impressions Soft Tissue Ultrasound 06/01/17 0000 Signed Impressions: Service Date/Time: Thursday, June 01, 2017 18:29 - CONCLUSION: Umbilical hernia again noted. At the time of the ultrasound, peristalsing bowel loops are present in the hernia sac. Mario Moreno MD Renal Ultrasound 05/30/17 0000 Signed Impressions: Service Date/Time: Tuesday, May 30, 2017 12:12 - CONCLUSION: End-stage polycystic kidneys Mario Lam MD Head CT 05/29/17 0000 Signed Impressions: Service Date/Time: May 08:42 - CONCLUSION: 1. No acute infarct, acute hemorrhage, midline shift or extra-axial fluid collections. 2. Mucous retention cyst within the right maxillary sinus. 3. Nasal septal deviation to the right. Denilson Strickland MD Chest X-Ray 05/29/17 0000 Signed Impressions: Service Date/Time: May 11:15 - CONCLUSION: 1. ET tube in good position. 2. Bibasilar atelectasis. 3. No pneumothorax. Leonardo Avendano MD Femur X-Ray 05/25/17 1359 Signed Impressions: Service Date/Time: Thursday, May 25, 2017 14:32 - CONCLUSION: No acute disease. Charanjit Orr MD Lumbar Spine X-Ray 05/25/17 0351 Signed Impressions: Service Date/Time: Thursday, May 25, 2017 04:30 - CONCLUSION: Chronic appearing findings as above. No fracture or acute-appearing malalignment demonstrated of the lumbar spine. Mario Moreno MD Cervical Spine CT 05/25/17 0351 Signed Impressions: Service Date/Time: Thursday, May 25, 2017 04:11 - CONCLUSION: 1. Nondisplaced fracture with mild compression deformity of T1 vertebral body, probably acute. No epidural hematoma or retropulsed fracture fragments. 2. Other findings appear chronic and please see above. Mario Moreno MD Wrist X-Ray 05/25/17 0000 Signed Impressions: Service Date/Time: Thursday, May 25, 2017 04:33 - CONCLUSION: 1. There is soft tissue swelling but I don't see an acute fracture or subluxation of the right wrist. 2. Chronic appearing destruction of the lunate and scaphoid, nonspecific but possibly related to old trauma or chronic arthropathy. Mario Moreno MD Hip and Pelvis X-Ray 05/25/17 0000 Signed Impressions: Service Date/Time: Thursday, May 25, 2017 04:22 - CONCLUSION: Pelvis and left hip are intact. Mario Moreno MD Abdomen/Pelvis CT 05/25/17 0000 Signed Impressions: Service Date/Time: Thursday, May 25, 2017 05:55 - CONCLUSION: 1. No visceral organ injury, fracture or other acute abnormality. 2. Degenerative changes of the lumbar spine, both hips and the pubic symphysis. There is considerable end plate irregularity at L4/L5, presumably reactive/degenerative but chronic discitis or the sequela of previous discitis could have a similar appearance. 3. Findings related to polycystic kidney disease with innumerable variable sized cysts throughout the liver and both kidneys noted. 4. Scattered sub-5 mm nonobstructing stones in both kidneys. 5. Nonspecific hepatosplenomegaly. Mario Moreno MD Physical Exam GENERAL: awake and alert. not in respiratory distress. SKIN: Warm and dry. No generalized rash EYES: [place] conjunctiva. No petechia or hemorrhage. Pupils equal, round and reactive to light. No scleral icterus. No injection or drainage. EARS, NOSE AND THROAT: Nose without bleeding or purulent nasal discharge. No sinus tenderness. Moist mucosa NECK: Wearing a cervical collar CARDIOVASCULAR: Soft heart sounds, limited exam due to diffuse rhonchi RESPIRATORY: Has diffuse rhonchi ABDOMEN: Distended, bowel sounds present and normoactive, ,not tender. No guarding. No rebound. Has a large umbilical hernia EXTREMITIES: No clubbing, cyanosis. Has bilateral pedal edema. No calf tenderness. Well perfused and warm. NEUROLOGICAL: Awake and alert. Cranial nerves grossly intact. Difficulty examining lower extremity due to severe back pain PSYCHIATRIC: Restless LINE: No evidence of infection : Howell in place, urine clear, min sediment Assessment & Plan Remarks IMPRESSION Sepsis, likely due to source - ?had urinary retention - S/P respiratory failure, CXR with basilar atelectasis Known COPD, smoker, prob with chronic bronchitis Seizure, etiology? Mild T1 compression fracture Cervical spondylosis Polycystic kidney disease CKD, ?worsened by retention RECOMMENDATION Continue Diflucan - give until 06/13 Continue Levaquin - change to po, give until 06/06 End dates for Levaquin and Diflucan ordered in [facility] Patient is clinically stable from ID standpoint OK for D/C anytime from ID standpoint I will sign off Please call if with any new ID issue or question Explained plan to the patient Sunita Lai MD Jun 03, 2017 11:26
--- NOTE | 2017-06-03 12:50 | HHI.NPPN ---
Review of Systems General Constitutional: Fatigue Gastrointestinal Gastrointestinal: Abdominal Pain Musculoskeletal MS: Pain/Stiffness Objective Data Data Vital Signs Date Time Temp Pulse Resp B/P (MAP) Pulse Ox O2 Delivery O2 Flow Rate FiO2 06/03/17 08:00 97.7 92 15 177/91 (119) 94 06/03/17 04:00 97.2 86 20 16/83 (61) 93 06/03/17 00:40 97.9 98 16 175/89 (117) 94 06/02/17 22:00 Nasal Cannula 2.00 06/02/17 21:10 102 06/02/17 16:00 98.2 90 18 163/82 (109) 96 06/02/17 15:21 94 Nasal Cannula 2.00 -: 06/01/17 0436 06/03/17 0737 Physical Exam General Appearance: Well Developed, No Acute Distress Pulmonary Resp Exam: Clear Bilaterally Cardiology CV Exam: Regular, Normal Sinus Rhythm Gastrointestinal/Abdomen GI Exam: Soft, Bowel Sounds Present, Distended, Mass Present (umblical hernia) Neurologic Neuro Exam: Moving All Extremities Assessment/Plan Problem List: (1) Acute kidney injury ICD Codes: N17.9 - Acute kidney failure, unspecified Status: Acute Plan: Patient has advanced kidney disease and may be nearing the need for dialysis. He appears to have urinary tract infection and sepsis Avoid nephrotoxins He was taking diclofenac as an outpatient which has been discontinued He also has underlying diabetes [place] flucon[place] was added No immediate need for dialysis. 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 Maggie Mike MD Jun 03, 2017 12:50
[2017-06-03] MEDS ORDERED: OXYC1TAB36 PO (15:36)
[2017-06-03] MEDS ORDERED: SENN1TAB PO (15:36)
[2017-06-03] MEDS ORDERED: GABA100C4 PO (15:36)
[2017-06-03] MEDS ORDERED: DIFL100T PO (15:36)
[2017-06-03] MEDS ORDERED: HYDR-3799 PO (15:36)
[2017-06-03] MEDS ORDERED: FERR325T20 PO (15:36)
[2017-06-03] MEDS ORDERED: AMLO10 PO (15:36)
[2017-06-03] MEDS ORDERED: LEVA250T14 PO (15:36)
--- NOTE | 2017-06-03 15:39 | HHI.DCPOC ---
Discharge Care Plan Diagnosis: (1) T1 vertebral fracture (2) Hypertension (3) Polycystic liver disease (4) Acute kidney injury (5) Intractable pain (6) Anemia (7) UTI (urinary tract infection) Goals to Promote Your Health * To prevent worsening of your condition and complications * To maintain your health at the optimal level Directions to Meet Your Goals Take your medications as prescribed Follow your dietary instruction Follow activity as directed Keep your appointments as scheduled Take your immunizations and boosters as scheduled If your symptoms worsen call your PCP, if no PCP go to Urgent Care Center or Emergency Room Smoking is Dangerous to Your Health. Avoid second hand smoke Call the 24-hour hour crisis hotline for domestic abuse at Mary Ellen Benites MD Jun 03, 2017 15:39
--- NOTE | 2017-06-03 15:41 | HHI.DS ---
Discharge Summary Admission Date May 25, 2017 at 07:24 Discharge Date: Jun 02, 2017 Admitting Diagnosis intractable pain; T1 fracture; anemia; MARICARMEN (1) T1 vertebral fracture ICD Code: S22.019A - Unspecified fracture of first thoracic vertebra, initial encounter for closed fracture Diagnosis: Principal Status: Acute (2) Chronic lower back pain ICD Code: M54.5 - Low back pain; G89.29 - Other chronic pain Diagnosis: Secondary (3) Gluteal pain ICD Code: M79.1 - Myalgia Diagnosis: Principal (4) UTI (urinary tract infection) ICD Code: N39.0 - Urinary tract infection, site not specified Diagnosis: Principal Status: Acute (5) Acute kidney injury ICD Code: N17.9 - Acute kidney failure, unspecified Diagnosis: Principal Status: Acute (6) Polycystic liver disease ICD Code: Q44.6 - Cystic disease of liver Diagnosis: Secondary Status: Acute (7) Hypertension ICD Code: I10 - Essential (primary) hypertension Diagnosis: Secondary Status: Acute (8) Polycystic kidney disease ICD Code: Q61.3 - Polycystic kidney, unspecified Diagnosis: Secondary Status: Acute (9) Anemia ICD Code: D64.9 - Anemia, unspecified Diagnosis: Secondary Status: Acute Procedures See hospital course. Brief History - From Admission This is a 57-year-old male past medical history of chronic kidney disease, polycystic kidney disease, polycystic liver disease, hypertension, COPD, and anxiety who presented with a fall. Patient stated that he try to prevent his mom from falling down the stairs and fell down with her. He stated that he was able to get up it was very painful and went to his bed. He stated that after he laid down he was not able to get up at all. Because of this he went to the emergency department. Patient was initially seen and [place] in which extensive workup was done. He was found to have nondisplaced fracture of T1 vertebrae with mild compression. Neurosurgeon Dr. Hill consulted and recommended transfer to the main hospital. Patient was seen by me he was complaining of severe left upper leg pain. He said that he feels like his hip might of fracture. Denied any changes in sensation. He denies any back pain. Patient was also found to be anemic. He stated that he has a history anemia and he was told to take ferrous sulfate but he did not take the medication. He stated that he was told that he had an anemia due to his polycystic kidney disease. Patient denies any GI bleed. He does admit feeling fatigue. Denies any chest pain, shortness of breathing, palpitation, lightheadedness or dizziness. CBC/BMP: 06/01/17 0436 06/03/17 0737 Significant Findings Laboratory Tests Test 06/01/17 04:36 06/02/17 05:46 06/02/17 17:30 06/03/17 07:37 Red Blood Count 3.50 MIL/MM3 (4.50-5.90) Hemoglobin 9.0 GM/DL (13.0-17.0) Hematocrit 28.0 % (39.0-51.0) Mean Corpuscular Hemoglobin 25.8 PG (27.0-34.0) Red Cell Distribution Width 17.9 % (11.6-17.2) Mean Platelet Volume 5.8 FL (7.0-11.0) Neutrophils (%) (Auto) 70.6 % (16.0-70.0) Eosinophils (%) (Auto) 6.6 % (0.0-4.0) Lymphocytes # (Auto) 0.9 TH/MM3 (1.0-4.8) Blood Urea Nitrogen 52 MG/DL (7-18) 46 MG/DL (7-18) 40 MG/DL (7-18) Creatinine 3.88 MG/DL (0.60-1.30) 3.64 MG/DL (0.60-1.30) 3.45 MG/DL (0.60-1.30) Estimat Glomerular Filtration Rate 16 ML/MIN (>89) 17 ML/MIN (>89) 19 ML/MIN (>89) Albumin 2.5 GM/DL (3.4-5.0) Sodium Level 134 MEQ/L (136-145) Urine Protein 30 mg/dL (NEG-TRACE) Urine Occult Blood MOD (NEG) Urine Leukocyte Esterase LARGE (NEG) Urine RBC 9 /hpf (0-3) Urine WBC 44 /hpf (0-5) Urine Bacteria RARE /hpf (NONE) Imaging Last Impressions Soft Tissue Ultrasound 06/01/17 0000 Signed Impressions: Service Date/Time: Thursday, June 01, 2017 18:29 - CONCLUSION: Umbilical hernia again noted. At the time of the ultrasound, peristalsing bowel loops are present in the hernia sac. Mario Moreno MD Renal Ultrasound 05/30/17 0000 Signed Impressions: Service Date/Time: Tuesday, May 30, 2017 12:12 - CONCLUSION: End-stage polycystic kidneys Mario Lam MD Head CT 05/29/17 0000 Signed Impressions: Service Date/Time: May 08:42 - CONCLUSION: 1. No acute infarct, acute hemorrhage, midline shift or extra-axial fluid collections. 2. Mucous retention cyst within the right maxillary sinus. 3. Nasal septal deviation to the right. Denilson Strickland MD Chest X-Ray 05/29/17 0000 Signed Impressions: Service Date/Time: May 11:15 - CONCLUSION: 1. ET tube in good position. 2. Bibasilar atelectasis. 3. No pneumothorax. Leonardo Avendano MD Femur X-Ray 05/25/17 1359 Signed Impressions: Service Date/Time: Thursday, May 25, 2017 14:32 - CONCLUSION: No acute disease. Charanjit Orr MD Lumbar Spine X-Ray 05/25/17 0351 Signed Impressions: Service Date/Time: Thursday, May 25, 2017 04:30 - CONCLUSION: Chronic appearing findings as above. No fracture or acute-appearing malalignment demonstrated of the lumbar spine. Mairo Moreno MD Cervical Spine CT 05/25/17 0351 Signed Impressions: Service Date/Time: Thursday, May 25, 2017 04:11 - CONCLUSION: 1. Nondisplaced fracture with mild compression deformity of T1 vertebral body, probably acute. No epidural hematoma or retropulsed fracture fragments. 2. Other findings appear chronic and please see above. Mario Moreno MD Wrist X-Ray 05/25/17 0000 Signed Impressions: Service Date/Time: Thursday, May 25, 2017 04:33 - CONCLUSION: 1. There is soft tissue swelling but I don't see an acute fracture or subluxation of the right wrist. 2. Chronic appearing destruction of the lunate and scaphoid, nonspecific but possibly related to old trauma or chronic arthropathy. Mario Moreno MD Hip and Pelvis X-Ray 05/25/17 0000 Signed Impressions: Service Date/Time: Thursday, May 25, 2017 04:22 - CONCLUSION: Pelvis and left hip are intact. Mario Moreno MD Abdomen/Pelvis CT 05/25/17 0000 Signed Impressions: Service Date/Time: Thursday, May 25, 2017 05:55 - CONCLUSION: 1. No visceral organ injury, fracture or other acute abnormality. 2. Degenerative changes of the lumbar spine, both hips and the pubic symphysis. There is considerable end plate irregularity at L4/L5, presumably reactive/degenerative but chronic discitis or the sequela of previous discitis could have a similar appearance. 3. Findings related to polycystic kidney disease with innumerable variable sized cysts throughout the liver and both kidneys noted. 4. Scattered sub-5 mm nonobstructing stones in both kidneys. 5. Nonspecific hepatosplenomegaly. Mario Moreno MD PE at Discharge GENERAL: This is a well-nourished, well-developed patient, in a c-collar in place in no acute distress but is complaining of pain NECK: Trachea midline. No JVD or lymphadenopathy. Supple, nontender, no meningeal signs. CARDIOVASCULAR: Regular rate and rhythm without murmurs, gallops, or rubs. RESPIRATORY: CTA B/L GASTROINTESTINAL: Abdomen soft and nondistended. Minimal tenderness to palpation at the umbilical hernia site and able to reduce it more but not completely. No hepato-splenomegaly, or palpable masses. Negative peritoneal signs. MUSCULOSKELETAL:B/L lower extremity full range of motion. Tenderness palpation in the left gluteal area. 5 out of 5 lower extremity strength. Pt update on day of discharge patient c/o of pain. Before exam patient is laying down very comfortably in bed. He stated that he has problems with his L4 and L5 [facility] which [facility]. He stated that this has been a chronic problem but he has refused surgery. Denied any lower extremity weakness. Denies any incontinence. Hospital Course 57-year-old male who initially presented with presented with mechanical fall that resulted and a T1 nondisplaced fracture later developed encephalopathy Metabolic encephalopathy occurred later on during the hospital course which was most likely secondary to multiple sedating medication, infection and metabolic. -Patient was treated IV antibiotics. Infectious disease consulted. Neurologist was also consulted for possible seizure. Workup was completed in which was negative for any seizure activity. -Treatment of underlying condition resolve symptoms. Asterix[place] -Per neurologist most likely due to metabolic encephalopathy. -Resolved during his hospital course. Acute respiratory failure with hypoxia -Initially thought to be due to seizure. But that workup was negative. Most like secondary to aspiration pneumonia. -Status post intubation and extubation -Improved with treatment aspiration pneumonia. Aspiration pneumonia, IMPROVED and asymptomatic. -Sputum cultures grew MRSA. Patient initially given IV Levaquin and Zosyn by infectious disease. -Since he was doing well he was later switched to by mouth Diflucan until 06/13 and by mouth Levaquin 06/06. Umbilical hernia, reducible -Initially patient had no pain. After being extubated he started complaining of pain at the umbilical hernia site. General surgery GEN consulted and stated that there is no sign of incarceration and it was reducible. Recommend elective surgery as outpatient. Constipation - [place]-Colace. UTI -Grew Irina albicans. On fluconazole until 06/13. Nondisplaced with mild compression of T1 vertebrae -Neurosurgeon following. -Per neurosurgeon continue conservative treatment with medications, therapy. -Continue cervical brace for T1 fracture -Mobilized out of bed with brace Acute on chronic lower back pain -Patient needs physical therapy. Most likely exacerbated since he is laying in bed all day. Education given to patient. Noncompliant. -On Percocet when necessary for pain. Gluteal myofascia pain secondary to trauma -Hip and femur x-ray was negative -Recommended PT. But patient is noncompliant. COPD/asthma -on duonebs. -At home he is on albuterol for this. -Smoking cessation. Acute on Chronic kidney disease secondary to polycystic kidney disease, stable. -Irrigation Worker following. -Continue to monitor creatinine. Avoid nephrotoxins. Strict ins and outs. -Per fisher sponge hooking kidney failures advanced and patient may need dialysis. 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 Hypertension/hypertensive renal disease -Uncontrolled so he was started on amlodipine and hydralazine with better control. -On amlodipine and hydralazine. Anemia, symptomatic -Patient has a history of iron deficiency anemia secondary to polycystic kidney disease and is noncompliant with treatment.. No signs of active bleeding. -Status post transfusion with packed red blood cells and responded appropriately. Tobacco dependence -Encourage smoking cessation. Patient is already trying to quit. He declined any nicotine patch. Type 2 diabetes - glipizide held. -Continue with insulin sliding scale. Will adjust insulin based on Accu-Cheks. Polycystic kidney disease/polycystic liver disease/hyperlipidemia/hypertension/ anxiety -Continue home medication. Pt Condition on Discharge: Stable Discharge Disposition: Discharge to SNF Discharge Time: > 30 minutes Discharge Instructions DIET: Follow Instructions for: Heart Healthy Diet, Diabetic Diet Activities you can perform: Regular-No Restrictions Other Activity Instructions: Keep [place] Collar in Follow up Referrals: Nephrology - 1 Week Neurosurgery - 2 Weeks with Marko Hill MD PCP Follow-up - 1 Week New Medications: Cyclobenzaprine (Flexeril) 10 Mg Tab 10 MG PO TID for Muscle Spasm, #30 TAB 0 Refills Hydralazine HCl (Hydralazine HCl) 25 Mg Tablet 25 MG PO TID for Blood Pressure Management, #90 TAB 0 Refills Lidocaine (Lidoderm) 5 % Adh..patch 1 PATCH T-DERMAL DAILY PRN for pain, #30 PATCH 0 Refills remove patch at night Amlodipine (Norvasc) 10 Mg Tab 10 MG PO DAILY for hypertension, #30 TAB 0 Refills Ferrous Sulfate (Ferosul) 325 Mg (65 Mg Iron) Tablet 325 MG PO BID for iron deficency , #60 TAB 0 Refills Fluconazole (Diflucan) 100 Mg Tab 100 MG PO DAILY for infection, #10 TAB 0 Refills stop date 06/13 Gabapentin (Gabapentin) 100 Mg Cap 100 MG PO BID for neuropathy, #60 CAP 0 Refills Levofloxacin (Levaquin) 250 Mg Tablet 250 MG PO Q48H for infection, #2 TAB 0 Refills stop date is 06/06/17 Oxycodone-Acetaminophen (Oxycodone-Acetaminophen) 10-325 mg Tab 1 TAB PO Q4H PRN for moderate to severe pain., #20 TAB 0 Refills Sennosides-Docusate Sodium (Senna Plus 8.6-50 mg) 8.6 Mg-50 Mg Tab 2 TAB PO BID for constipation, #60 TAB 0 Refills Continued Medications: Buspirone (Buspirone) 10 Mg Tab 10 MG PO TID for Anxiety, TAB 0 Refills Doxazosin (Doxazosin) 4 Mg Tab 4 MG PO HS, #30 TAB 0 Refills Glipizide (Glipizide) 5 Mg Tab 5 MG PO BIDAC for Blood Sugar Management, #60 TAB 0 Refills Take 30 minutes before a meal Ipratropium-Albuterol Inh (Combivent Respimat Inh) 20-100 Care Home/Act Aero 1 PUFF INH QID for Asthma Management, #1 INHALER 0 Refills Pravastatin (Pravastatin) 40 Mg Tab 40 MG PO DAILY for Cholesterol Management, #30 TAB 0 Refills Discontinued Medications: Amlodipine (Amlodipine) 2.5 Mg Tab 2.5 MG PO DAILY for Blood Pressure Management, #30 TAB [address] (Diclofenac Sodium DR) 75 Mg Tabdr 75 MG PO BID, #20 TAB Furosemide (Furosemide) 20 Mg Tab 20 MG PO DAILY, #30 TAB 0 Refills Gabapentin (Gabapentin) 300 Mg Cap 300 MG PO BID, #60 CAP 0 Refills Mary Ellen Benites MD Jun 03, 2017 15:41
--- NOTE | 2017-06-03 16:25 | HHI.NSPN ---
(Vamsi Pino) History Chief Complaint: Pain from the Howell being removed. (Vamsi Pino) Interval History 05/25: 57-year-old male was helping his mother down some stairs on Friday morning 06/03/17 when they both fell. He had immediate onset of back and left hip and groin pain. He went to bed last evening and the pain continued to increase. He was brought to the emergency room per EMS today. His initial x- rays revealed a T1 nondisplaced fracture. He complains of neck pain as well as rather severe left lateral hip pain with radiation to the left lateral hip and thigh. He complains of mild numbness in the left anterior thigh. No bowel or bladder dysfunction. He does have a history of chronic back pain. States he has had abnormalities at the L4-5 level. Has had previous episodes of sciatica. 05/26: Patient is asleep but awakens to verbal stimulation. He is alert and interactive after that. His major complaint is pain to the left hip and thigh which causes him not to be able to get up. He does state he has some pain to the upper back/lower neck. He has the [place] cervical collar in place but the front half is off. 05/27: The patient is doing well this afternoon. He is sitting up in a chair with a lumbar support in place. He complains of numbness to the left calf and weakness to the left foot. 05/28: This afternoon the patient is sitting in the chair doing a breathing treatment when seen. He does have the [employer] cervical collar and a lumbar brace in place. He states that he has weakness to both knees and the right wrist after surgery which is chronic. 05/29: Per Nursing the patient became nonresponsive and had a seizure this morning and was started on phenytoin. He was subsequently transferred to [facility] where he had hypoxic respiratory failure and was intubated. He is sedated on propofol. 05/30: The patient is extubated when seen this afternoon. He states that he is doing good and has no neck pain. 9/18: This morning the patient is doing good when seen. He is awake and watching TV. He states that he is chilly. He does endorse some back and posterior right hip pain but none to the neck or upper thoracic spine. 06/03: The patient is doing good when seen this afternoon. He denies any cervical or upper thoracic spine pain. He does complain of pain from the Howell catheter being removed. He reports having electric shock pain going down the extremities at times. (Vamsi Pino) System Review Comments Constitutional: Patient denies any fever or chills. HEENT: Patient denies any visual or hearing difficulty. Respiratory: Patient denies any shortness of breath or productive cough. Cardiovascular: Patient denies any chest pain, palpitations or irregular heartbeat. Gastrointestinal: Patient has some abdominal pain at his umbilical hernia. He denies any nausea, vomiting or incontinence of stool. Genitourinary: Patient complains of pain due to the Howell being removed. Musculoskeletal: Patient has some low back pain. He does complain of intermittent electric shock pain to the arms and legs. He denies any pain to the neck. Neurologic: Patient denies any headache, dizziness, numbness or tingling. (Vamsi Pino) Exam Results 06/01/17 06/01/17 06/02/17 06/02/17 06/03/17 06/03/17 06:00 18:00 06:00 18:00 06:00 18:00 Intake Total 1162 ml 1050 ml 967 ml 231.7 ml Output Total 2000 ml 1250 ml 1300 ml Balance -838 ml -200 ml -333 ml 231.7 ml Intake Oral 960 ml 750 ml 720 ml IV Total 202 ml 300 ml 247 ml 231.7 ml Output Urine Total 2000 ml 1250 ml 1300 ml # Bowel Movements 0 0 1 1 Vital Signs Date Time Temp Pulse Resp B/P (MAP) Pulse Ox O2 Delivery O2 Flow Rate FiO2 06/03/17 14:27 98.3 93 15 171/83 (112) 94 06/03/17 08:17 Nasal Cannula 2.00 06/03/17 08:00 97.7 92 15 177/91 (119) 94 06/03/17 04:00 97.2 86 20 16/83 (61) 93 06/03/17 00:40 97.9 98 16 175/89 (117) 94 06/02/17 22:00 Nasal Cannula 2.00 06/02/17 21:10 102 06/02/17 16:00 98.2 90 18 163/82 (109) 96 06/02/17 15:21 94 Nasal Cannula 2.00 06/02/17 12:00 91 06/02/17 12:00 97.6 84 17 162/72 (102) 98 06/02/17 08:13 98 Nasal Cannula 2.00 06/02/17 08:00 97.6 84 17 162/72 (102) 98 06/02/17 08:00 84 06/02/17 07:00 98 Nasal Cannula 2.00 06/02/17 04:00 86 06/02/17 04:00 97.7 86 15 168/85 (112) 96 06/02/17 02:00 84 06/02/17 00:00 98.1 82 14 168/81 (110) 98 06/02/17 00:00 82 06/01/17 22:00 84 06/01/17 21:00 15 06/01/17 20:41 97 Nasal Cannula 3.00 06/01/17 20:00 82 06/01/17 20:00 98.3 82 14 172/81 (111) 94 06/01/17 19:00 94 Room Air 06/01/17 18:00 85 06/01/17 16:00 82 06/01/17 16:00 98.5 82 17 161/83 (109) 94 06/01/17 14:00 86 06/01/17 12:49 95 Nasal Cannula 3.00 06/01/17 12:00 91 06/01/17 12:00 98.2 83 16 172/88 (116) 94 06/01/17 10:00 91 06/01/17 08:00 98.3 94 22 154/91 (112) 94 06/01/17 08:00 85 06/01/17 07:00 94 Room Air 06/01/17 06:00 85 06/01/17 04:00 95 06/01/17 04:00 98.4 95 13 176/84 (114) 95 06/01/17 02:00 84 06/01/17 00:00 98.1 78 12 185/91 (122) 98 06/01/17 00:00 76 05/31/17 22:00 77 05/31/17 21:06 96 Nasal Cannula 3.00 05/31/17 20:00 85 05/31/17 20:00 98.4 85 22 177/86 (116) 97 05/31/17 19:00 95 Nasal Cannula 2.00 05/31/17 18:18 99 Nasal Cannula 3.00 05/31/17 18:00 82 (Vamsi Pino) Physical Examination GENERAL: Patient awake & alert and readily interacts. Affect essentially normal. No apparent distress. SKIN: Warm, dry & intact w/o any rashes, ulceration or other lesions noted. HEENT: Normocephalic, atraumatic. NECK: [place] cervical collar in place, midline cervical spine & thoracolumbar junction NTTP, no JVD, trachea midline. CARDIOVASCULAR: S1S2 w/RRR w/o M/G/R, radial & pedal pulses 2+ bilaterally, cap refill < 2 sec. RESPIRATORY: Coarse bilaterally, equal excursion, nonlaboured, on NC. GASTROINTESTINAL: Abdomen soft, positive bowel sounds, umbilical hernia slightly soft & nonreducible. MUSCULOSKELETAL: Chronic deformity in the right wrist and thumb, extremities NTTP. Lumbar spine mildly TTP. Minimally TTP posterior left hip. NEUROLOGICAL: AAOx3. Speech clear & appropriate. Sensation intact to light touch to all extremities. Motor strength 5/5 to all major flexion & extension muscle groups except left 2nd-5th toes 4/5 and hand intrinsics/extrinsics bilaterally & left great toe 3/ 5. (Vamsi Pino) Lab, Micro, Other Results Recent Impressions Soft Tissue Ultrasound 06/01/17 0000 Signed Impressions: Service Date/Time: Thursday, June 01, 2017 18:29 - CONCLUSION: Umbilical hernia again noted. At the time of the ultrasound, peristalsing bowel loops are present in the hernia sac. Mario Moreno MD Laboratory Tests Test 06/01/17 04:36 06/02/17 05:46 06/02/17 17:30 06/03/17 07:37 White Blood Count 5.6 TH/MM3 Red Blood Count 3.50 MIL/MM3 Hemoglobin 9.0 GM/DL Hematocrit 28.0 % Mean Corpuscular Volume 80.2 FL Mean Corpuscular Hemoglobin 25.8 PG Mean Corpuscular Hemoglobin Concent 32.2 % Red Cell Distribution Width 17.9 % Platelet Count 320 TH/MM3 Mean Platelet Volume 5.8 FL Neutrophils (%) (Auto) 70.6 % Lymphocytes (%) (Auto) 15.2 % Monocytes (%) (Auto) 7.0 % Eosinophils (%) (Auto) 6.6 % Basophils (%) (Auto) 0.6 % Neutrophils # (Auto) 4.0 TH/MM3 Lymphocytes # (Auto) 0.9 TH/MM3 Monocytes # (Auto) 0.4 TH/MM3 Eosinophils # (Auto) 0.4 TH/MM3 Basophils # (Auto) 0.0 TH/MM3 CBC Comment DIFF FINAL Differential Comment Blood Urea Nitrogen 52 MG/DL 46 MG/DL 40 MG/DL Creatinine 3.88 MG/DL 3.64 MG/DL 3.45 MG/DL Random Glucose 105 MG/DL 90 MG/DL 76 MG/DL Calcium Level 9.1 MG/DL 9.0 MG/DL 8.7 MG/DL Sodium Level 137 MEQ/L 134 MEQ/L 137 MEQ/L Potassium Level 4.4 MEQ/L 4.2 MEQ/L 4.4 MEQ/L Chloride Level 101 MEQ/L 99 MEQ/L 102 MEQ/L Carbon Dioxide Level 26.5 MEQ/L 28.5 MEQ/L 27.4 MEQ/L Anion Gap 10 MEQ/L 7 MEQ/L 8 MEQ/L Estimat Glomerular Filtration Rate 16 ML/MIN 17 ML/MIN 19 ML/MIN Albumin 2.5 GM/DL Phosphorus Level 4.3 MG/DL Urine Color LIGHT-YELLOW Urine Turbidity CLEAR Urine pH 7.0 Urine Specific [place] 1.008 Urine Protein 30 mg/dL Urine Glucose (UA) NEG mg/dL Urine Ketones NEG mg/dL Urine Occult Blood MOD Urine Nitrite NEG Urine Bilirubin NEG Urine Urobilinogen LESS THAN 2.0 MG/DL Urine Leukocyte Esterase LARGE Urine RBC 9 /hpf Urine WBC 44 /hpf Urine Bacteria RARE /hpf (Vamsi Pino) Medical Decision Making Impression and Plan Impression: 1. Mild T1 compression fracture without significant retropulsion. 2. Significant cervical spondylosis and degenerative disc disease with question of previous discitis 3. L4 5 severe degenerative changes with question of previous discitis. 4. Probable chronic left L5 radiculopathy with motor deficit 5. Left gluteal myofascial injury. Probable mild left sciatic nerve contusion. Patient doing good and is neurologically stable. Plan: Primary management per Hospitalist. Alaina Nicole cervical collar. Mobilise patient w/assistance. PT eval & tx. (Vamsi Pino) Attending Statement The exam, history, and the medical decision-making described in the above note were completed with the assistance of the mid-level provider. I reviewed and agree with the findings presented. I attest that I had a [id number] encounter with the patient on the same day, and personally performed and documented my assessment and findings in the medical record. The patient remains in cervical collar. Continues to have significant primarily left lower lumbar and gluteal and hip tenderness with some radiation to the proximal left lateral thigh. This seems to be the main problem in. His ambulation. He ambulated approximately 20 feet with minimal assistance and therapy today, with complaint of 10/10 left gluteal-hip pain. Possible left sciatic nerve contusion in addition to gluteal and hip myofascial pain. Continuing cervical collar for T1 fracture Patient is stable for discharge to [facility] from neurosurgery standpoint with follow-up appointment in approximately 4-6 weeks with cervical spine x-ray to include T1. (Marko Hill MD) Vamsi Pino Jun 03, 2017 16:25 Marko Hill MD Jun 03, 2017 22:35
[2017-06-03] MEDS: hydrALAZINE HCL 25 MG TAB PO SCH ×2 (17:49→21:30)
[2017-06-03] MEDS ORDERED: LEVOFLOXACIN 250 MG TAB PO SCH (21:00)
[2017-06-03] MEDS: DOXAZOSIN MESYLATE 4 MG TAB PO SCH (21:30)
[2017-06-04] VITALS (8 sets, daily range): BP systolic 154–175; BP diastolic 75–89; PULSE 76–92; RESP 16–22; TEMP 97.1–98.8; O2SAT 94–97
[2017-06-04] MEDS: oxyCODONE/ACETAMINOPHEN 10 MG/325 MG TAB PO PRN ×5 (02:01→18:59)
[2017-06-04] MEDS: INSULIN ASPART SUPPLEMENTAL SCALE SQ SCH ×4 (06:00→18:00)
[2017-06-04] MEDS: hydrALAZINE HCL 25 MG TAB PO SCH ×2 (06:32→14:17)
[2017-06-04] MEDS: CHLORHEXIDINE 0.12% (ORAL KIT) 15 ML CUP MT SCH (08:00)
[2017-06-04] MEDS: DOCUSATE SODIUM 50 MG/SENNA 8.6 MG TAB PO SCH (09:00)
[2017-06-04] MEDS: busPIRone HCL 10 MG TAB PO SCH ×3 (09:46→18:57)
[2017-06-04] MEDS: GABAPENTIN 100 MG CAP PO SCH (09:46)
[2017-06-04] MEDS: FERROUS SULFATE 325 MG (65 MG ELEMENTAL IRON) TAB PO SCH (09:46)
[2017-06-04] MEDS: PRAVASTATIN SOD 40 MG TAB PO SCH (09:46)
[2017-06-04] MEDS: FLUCONAZOLE 100 MG TAB PO SCH (09:46)
[2017-06-04] MEDS: SODIUM CHLORIDE 0.9% FLUSH 10 ML FLUSH IV FLUSH SCH (09:47)
[2017-06-04] MEDS ORDERED: LIDOCAINE HCL 5% PATCH T-DERMAL SCH (11:15)
[2017-06-04] MEDS ORDERED: CYCL1TAB29 PO (11:18)
[2017-06-04] MEDS ORDERED: LIDO5DIS5 T-DERMAL (11:18)
--- NOTE | 2017-06-04 12:02 | HHI.NPPN ---
Review of Systems General Constitutional: Fatigue Gastrointestinal Gastrointestinal: Abdominal Pain Musculoskeletal MS: Pain/Stiffness Objective Data Data Vital Signs Date Time Temp Pulse Resp B/P (MAP) Pulse Ox O2 Delivery O2 Flow Rate FiO2 06/04/17 09:11 97 Nasal Cannula 2.00 06/04/17 09:06 98.1 76 18 166/89 (114) 94 06/04/17 04:45 97.9 88 22 154/88 (110) 95 06/04/17 00:20 98.8 80 20 160/75 (103) 94 06/03/17 21:51 Nasal Cannula 2.00 06/03/17 21:15 98.1 86 19 164/82 (109) 93 06/03/17 20:00 85 06/03/17 20:00 Nasal Cannula 2.00 06/03/17 16:00 98.1 84 15 183/91 (121) 90 06/03/17 15:00 88 06/03/17 14:27 98.3 93 15 171/83 (112) 94 06/03/17 13:14 18 -: 06/01/17 0436 06/03/17 0737 Physical Exam General Appearance: Well Developed, No Acute Distress Pulmonary Resp Exam: Clear Bilaterally Cardiology CV Exam: Regular, Normal Sinus Rhythm Gastrointestinal/Abdomen GI Exam: Soft, Bowel Sounds Present, Distended, Mass Present (umblical hernia) Neurologic Neuro Exam: Moving All Extremities Assessment/Plan Problem List: (1) Acute kidney injury ICD Codes: N17.9 - Acute kidney failure, unspecified Status: Acute Plan: Patient has advanced kidney disease and may be nearing the need for dialysis. He had urinary tract infection and sepsis Avoid nephrotoxins He was taking diclofenac as an outpatient which has been discontinued He also has underlying diabetes He [place] and fluconazole was added No immediate need for dialysis. 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 Maggie Mike MD Jun 04, 2017 12:02
--- NOTE | 2017-06-04 12:12 | HHI.PR ---
Subjective Remarks Follow-up for placement in pain Patient continues to complain about his lower back pain. He stated that this has been chronic and the [facility]. He stated that he has difficulty moving but during examination patient is moving without any difficulty. Denied any incontinence. None noted during hospitalization. Objective Vitals Vital Signs Date Time Temp Pulse Resp B/P (MAP) Pulse Ox O2 Delivery O2 Flow Rate FiO2 06/04/17 09:11 97 Nasal Cannula 2.00 06/04/17 09:06 98.1 76 18 166/89 (114) 94 06/04/17 04:45 97.9 88 22 154/88 (110) 95 06/04/17 00:20 98.8 80 20 160/75 (103) 94 06/03/17 21:51 Nasal Cannula 2.00 06/03/17 21:15 98.1 86 19 164/82 (109) 93 06/03/17 20:00 85 06/03/17 20:00 Nasal Cannula 2.00 06/03/17 16:00 98.1 84 15 183/91 (121) 90 06/03/17 15:00 88 06/03/17 14:27 98.3 93 15 171/83 (112) 94 06/03/17 13:14 18 I/O 06/03/17 06/03/17 06/03/17 06/04/17 06/04/17 06/04/17 07:00 15:00 23:00 07:00 15:00 23:00 Intake Total 1200 ml 600 ml Output Total 1650 ml 300 ml 1200 ml Balance -1650 ml 900 ml -600 ml Intake Oral 1200 ml 600 ml Output Urine Total 1650 ml 300 ml 1200 ml # Bowel Movements 1 3 0 Result Diagram: 06/01/17 0436 06/03/17 0737 Objective Remarks GENERAL: This is a well-nourished, well-developed patient, in a c-collar in place in no acute distress but is complaining of pain NECK: Trachea midline. No JVD or lymphadenopathy. Supple, nontender, no meningeal signs. CARDIOVASCULAR: Regular rate and rhythm without murmurs, gallops, or rubs. RESPIRATORY: CTA B/L GASTROINTESTINAL: Abdomen soft and nondistended. negative palpation at the umbilical hernia site. No hepato-splenomegaly, or palpable masses. Negative peritoneal signs. MUSCULOSKELETAL:B/L lower extremity full range of motion. 5 out of 5 lower extremity strength. Tenderness palpation in the left gluteal area. Left-sided muscle spasm of the paraspinal muscle. Medications and IVs Current Medications Morphine Sulfate (Morphine Inj) 2 mg ONCE ONCE IV Last administered on 05:04; Start 05/25/17 at 04:00; Stop 05/25/17 at 04:01; Status DC Ondansetron HCl (Zofran Inj) 4 mg ONCE ONCE IVP Last administered on 05:04; Start 05/25/17 at 04:00; Stop 05/25/17 at 04:01; Status DC Sodium Chloride (NS Flush) 2 ml UNSCH PRN IVF FLUSH AFTER USING IV ACCESS; Start 05/25/17 at 04:00; Stop 05/25/17 at 09:34; Status DC Sodium Chloride 1,000 ml @ 100 mls/hr Q10H IV Last administered on 05/25/17 21:45; Start 05/25/17 at 04:00; Stop 05/26/17 at 10:43; Status DC Sodium Chloride 1,000 ml @ 999 mls/hr BOLUS ONCE IV Last administered on 05/25 05:52; Start 05/25/17 at 05:45; Stop 05/25/17 at 06:45; Status DC Ondansetron HCl (Zofran Inj) 4 mg ONCE ONCE IV PUSH Last administered on 05:52; Start 05/25/17 at 05:45; Stop 05/25/17 at 05:46; Status DC Morphine Sulfate (Morphine Inj) 4 mg ONCE ONCE IV PUSH Last administered on 05:52; Start 05/25/17 at 05:45; Stop 05/25/17 at 05:46; Status DC Hydromorphone HCl (Dilaudid Pf Inj) 0.5 mg ONCE ONCE IV PUSH Last administered on 05/25/17 06:42; Start 05/25/17 at 06:45; Stop 05/25/17 at 06:46 ; Status DC Sodium Chloride (NS Flush) 2 ml BID IV FLUSH Last administered on 06/04/17 09: 47; Start 05/25/17 at 09:00 Sodium Chloride (NS Flush) 2 ml UNSCH PRN IVF FLUSH AFTER USING IV ACCESS; Start 05/25/17 at 07:30 Ceftriaxone Sodium 1000 mg/ Sodium Chloride 100 ml @ 200 mls/hr ONCE ONCE IV Last administered on 05/25/17 07:48; Start 05/25/17 at 07:45; Stop 05/25/17 at 08:14; Status DC Ondansetron HCl (Zofran Inj) 4 mg ONCE ONCE IV PUSH Last administered on 08:07; Start 05/25/17 at 08:00; Stop 05/25/17 at 08:01; Status DC Hydromorphone HCl (Dilaudid Pf Inj) 1 mg ONCE ONCE IV PUSH Last administered on 05/25/17 08:07; Start 05/25/17 at 08:00; Stop 05/25/17 at 08:01; Status DC Sodium Chloride 250 ml @ 15 mls/hr ONCE ONCE IV Last administered on 08:45; Start 05/25/17 at 08:45; Stop 05/26/17 at 01:24; Status DC Ceftriaxone Sodium 1000 mg/ Sodium Chloride 100 ml @ 200 mls/hr Q24H IV Last administered on 05/28/17 09:33; Start 05/26/17 at 08:00; Stop 05/29/17 at 17:39 ; Status DC Sodium Chloride 1,000 ml @ 100 mls/hr Q10H IV ; Start 05/25/17 at 08:38; Stop 05/26/17 at 10:43; Status DC Sodium Chloride (NS Flush) 2 ml UNSCH PRN IV FLUSH FLUSH AFTER USING IV ACCESS ; Start 05/25/17 at 08:45; Stop 05/25/17 at 09:33; Status DC Sodium Chloride (NS Flush) 2 ml BID IV FLUSH ; Start 05/25/17 at 09:00; Stop 07/01 at 09:33; Status DC Acetaminophen (Tylenol) 650 mg Q4H PRN PO TEMP > 100.4; Start 05/25/17 at 08:45 Ondansetron HCl (Zofran Inj) 4 mg Q6H PRN IVP NAUSEA OR VOMITING; Start at 08:45 Acetaminophen/ Hydrocodone Bitart ([place] 5-325 Mg) 1 tab Q4H PRN PO PAIN SCALE 3 TO 5; Start 05/25/17 at 08:45; Stop 05/25/17 at 13:15; Status DC Acetaminophen/ Hydrocodone Bitart ([place] 10-325 Mg) 1 tab Q4H PRN PO PAIN SCALE 6 TO 10 Last administered on 05/25/17 09:40; Start 05/25/17 at 08:45; Stop 05/25/17 at 13:15; Status DC Naloxone HCl (Narcan Inj) 0.4 mg UNSCH PRN IV SEE LABEL COMMENTS; Start at 08:45 Senna/Docusate Sodium ([place]-Colace) 1 tab BID PO Last administered on 07:46; Start 05/25/17 at 10:00; Stop 06/01/17 at 12:53; Status DC Magnesium Hydroxide (Milk Of Magnesia Liq) 30 ml Q12H PRN PO MILD - MODERATE CONSTIPATION Last administered on 06/01/17 20:03; Start 05/25/17 at 08:45 Sennosides (Senokot) 17.2 mg Q12H PRN PO MODERATE - SEVERE CONSTIPATION; Start 05/25/17 at 08:45 Bisacodyl (Dulcolax Supp) 10 mg DAILY PRN RECTAL SEVERE CONSITIPATION; Start at 08:45 Lactulose (Lactulose Liq) 30 ml DAILY PRN PO SEVERE CONSITIPATION Last administered on 06/01/17 22:48; Start 05/25/17 at 08:45 Albuterol/ Ipratropium (Duoneb Neb) 1 ampule Q2HR NEB PRN NEB dyspnea; Start at 08:45 Dextrose (D50w (Vial) Inj) 50 ml UNSCH PRN IV HYPOGLYCEMIA-SEE COMMENTS; Start 05/25/17 at 08:45 Glucagon (Glucagon Inj) 1 mg UNSCH PRN OTHER HYPOGLYCEMIA-SEE COMMENTS; Start 05/25/17 at 08:45 Insulin Aspart (NovoLOG SUPPLEMENTAL SCALE) 1 ACHS SLIDING SCALE SQ Last administered on 05/27/17 17:24; Start 05/25/17 at 11:00; Stop 05/29/17 at 11:07 ; Status DC Hydromorphone HCl (Dilaudid Pf Inj) 1 mg Q4H PRN IV PUSH pain 4-10 Last administered on 05/26/17 06:15; Start 05/25/17 at 13:15; Stop 05/26/17 at 10:43 ; Status DC Oxycodone/ Acetaminophen (Percocet 10-325 Mg) 1 tab Q4H PRN PO pain 8-10 Last administered on 05/28/17 22:57; Start 05/25/17 at 13:15; Stop 05/29/17 at 10:48 ; Status DC Cyclobenzaprine HCl (Flexeril) 5 mg Q8HR PO Last administered on 05/28/17 22: 56; Start 05/25/17 at 14:00; Stop 05/29/17 at 10:48; Status DC Albuterol/ Ipratropium (Duoneb Neb) 1 ampule Q4HR WHILE AWAKE NEB NEB Last administered on 05/29/17 07:31; Start 05/25/17 at 16:00; Stop 05/29/17 at 15:59 ; Status DC Amlodipine Besylate (Norvasc) 2.5 mg DAILY PO Last administered on 06/01/17 07 :46; Start 05/25/17 at 13:30; Stop 06/01/17 at 11:41; Status DC Buspirone HCl (Buspar) 10 mg TID PO Last administered on 06/04/17 09:46; Start 05/25/17 at 18:00 Doxazosin Mesylate (Cardura) 4 mg HS PO Last administered on 06/03/17 21:30; Start 05/25/17 at 21:00 Gabapentin (Neurontin) 300 mg BID PO Last administered on 05/28/17 22:56; Start 05/25/17 at 13:30; Stop 05/29/17 at 11:07; Status DC Pravastatin Sodium (Pravachol) 40 mg DAILY PO Last administered on 06/04/17 09 :46; Start 05/26/17 at 09:00 Ferrous Sulfate (Ferrous Sulfate) 325 mg BID PO Last administered on 06/04/17 09:46; Start 05/25/17 at 21:00 Miscellaneous (Pill Splitter) 1 ea UNSCH PRN OTHER SEE LABEL COMMENTS Last administered on 05/30/17 11:51; Start 05/25/17 at 13:45 Ketorolac Tromethamine (Toradol Inj) 15 mg Q6HR IV PUSH Last administered on 18:19; Start 05/26/17 at 00:00; Stop 05/27/17 at 18:01; Status DC Oxycodone/ Acetaminophen (Percocet 5-325 Mg) 1 tab Q4H PRN PO pain 1-7; Start 05/26/17 at 10:45; Stop 05/29/17 at 10:48; Status DC Morphine Sulfate (Oramorph Sr) 15 mg Q12HR PO Last administered on 05/28/17 22 :56; Start 05/26/17 at 21:00; Stop 05/29/17 at 10:48; Status DC Lorazepam (Ativan Inj) 2 mg STK-MED ONCE .ROUTE Last administered on 05/29/17 09:09; Start 05/29/17 at 09:07; Stop 05/29/17 at 09:08; Status DC Phenytoin Sodium 1000 mg/Sodium Chloride 120 ml @ 240 mls/hr STAT ONCE IV Last administered on 05/29/17 09:42; Start 05/29/17 at 09:30; Stop 05/29/17 at 09:59; Status DC Etomidate (Amidate Inj) 40 mg STK-MED ONCE .ROUTE ; Start 05/29/17 at 10:37; Stop 05/29/17 at 10:38; Status DC Fentanyl Citrate (fentaNYL INJ) 100 mcg STK-MED ONCE .ROUTE ; Start 05/29/17 at 10:37; Stop 05/29/17 at 10:38; Status DC Rocuronium Miles (Zemuron Inj) 50 mg STK-MED ONCE .ROUTE ; Start 05/29/17 at 10:40; Stop 05/29/17 at 10:41; Status DC Propofol 100 ml @ As Directed STK-MED ONCE .ROUTE ; Start 05/29/17 at 10:43; Stop 05/29/17 at 10:44; Status DC Lorazepam (Ativan Inj) 1 mg NOW ONCE IV ; Start 05/29/17 at 11:00; Stop at 11:01; Status DC Chlorhexidine Gluconate (Peridex 0.12% Liq) 15 ml BID@08,20 MT Last administered on 06/02/17 08:00; Start 05/29/17 at 20:00 Propofol 100 ml @ 3 mls/hr TITRATE PRN IV SEDATION Last administered on 06:30; Start 05/29/17 at 11:15; Stop 06/03/17 at 11:48; Status DC Gabapentin (Neurontin) 100 mg BID PO Last administered on 06/04/17 09:46; Start 05/29/17 at 21:00 Insulin Aspart (NovoLOG SUPPLEMENTAL SCALE) 1 Q6HR SQ Last administered on 06/03 17:49; Start 05/29/17 at 12:00 Phenytoin Sodium (Dilantin Inj) 100 mg Q8HR IV Last administered on 05/30/17 13:31; Start 05/29/17 at 19:00; Stop 05/30/17 at 15:48; Status DC Piperacillin Sod/ Tazobactam Sod 50 ml @ 100 mls/hr Q6H IV Last administered on 06/03/17 08:16; Start 05/29/17 at 20:00; Stop 06/03/17 at 11:48; Status DC Albuterol/ Ipratropium (Duoneb Neb) 1 ampule Q6HR NEB NEB Last administered on 06/02/17 15:19; Start 05/29/17 at 17:45; Stop 06/02/17 at 17:44; Status DC Albuterol/ Ipratropium (Duoneb Neb) 1 ampule Q2HR NEB PRN NEB wheezing; Start 05/29/17 at 17:45 Sodium Polystyrene Sulfonate (Kayexalate Liq) 30 gm Q2HR PO Last administered on 05/29/17 20:00; Start 05/29/17 at 18:00; Stop 05/30/17 at 03:25; Status DC Fluconazole/ Sodium Chloride 200 ml @ 100 mls/hr Q24H IV Last administered on 06/02/17 11:26; Start 05/30/17 at 11:00; Stop 06/02/17 at 15:34; Status DC Oxycodone/ Acetaminophen (Percocet 10-325 Mg) 1 tab Q4H PRN PO pain scale 4-10 Last administered on 06/04/17 10:48; Start 05/30/17 at 11:00 Levofloxacin/ Dextrose 50 ml @ 50 mls/hr Q48H IV Last administered on 21:26; Start 05/30/17 at 21:00; Stop 06/02/17 at 13:33; Status DC Hydralazine HCl (Apresoline Inj) 10 mg Q1HR PRN IV PUSH SBP>160, DBP>90 Last administered on 06/02/17 02:04; Start 05/31/17 at 06:00 Amlodipine Besylate (Norvasc) 10 mg DAILY PO Last administered on 06/04/17 09: 46; Start 06/01/17 at 11:45 Senna/Docusate Sodium ([place]-Colace) 2 tab BID PO Last administered on 08:17; Start 06/01/17 at 21:00 Bisacodyl (Dulcolax Supp) 10 mg ONCE ONCE RECTAL Last administered on 13:53; Start 06/01/17 at 12:45; Stop 06/01/17 at 12:48; Status DC Clonidine (Catapres) 0.1 mg Q6H PRN PO FOR SBP > 160 Last administered on 02:08; Start 06/02/17 at 00:15 Fluconazole (Diflucan) 100 mg DAILY PO Last administered on 06/04/17 09:46; Start 06/03/17 at 09:00; Stop 06/13/17 at 23:00 Levofloxacin (Levaquin) 250 mg Q48H PO Last administered on 06/03/17 21:30; Start 06/03/17 at 21:00; Stop 06/06/17 at 20:59 Hydromorphone HCl (Dilaudid Pf Inj) 0.2 mg ONCE ONCE IV PUSH Last administered on 06/03/17 00:21; Start 06/02/17 at 23:00; Stop 06/02/17 at 23:01 ; Status DC Hydralazine HCl (Apresoline) 25 mg Q8HR PO Last administered on 06/04/17 06:32 ; Start 06/03/17 at 16:00 Cyclobenzaprine HCl (Flexeril) 10 mg Q8HR PO ; Start 06/04/17 at 14:00 Lidocaine HCl (Lidoderm 5% Patch.12 Hr) 1 patch DAILY T-DERMAL ; Start 06/04/17 at 11:15 Miscellaneous Information 1 Q24H T-DERMAL ; Start 06/04/17 at 21:00 A/P Assessment and Plan 57-year-old male who initially presented with presented with mechanical fall that resulted and a T1 nondisplaced fracture later developed encephalopathy Metabolic encephalopathy, RESOLVED. -due to infection. -Neurologist was consulted and initially he was treated empirically for seizure but that was ruled out. EEG was negative for any epilepsy. [place] -Seemed to resolve. Per neurologist most likely secondary to metabolic encephalopathy. Acute respiratory failure with hypoxia -Status post intubation and extubation -Most likely secondary to aspiration pneumonia. -Resolved. Aspiration pneumonia, IMPROVED and asymptomatic. -Sputum cultures grew MRSA. -s/p IV Levaquin, Zosyn. -Patient now on by mouth Diflucan until 06/13 and by mouth Levaquin 06/06. Infectious disease signed off. Umbilical hernia, reducible -Pain continues to improve. No signs or symptoms of incarceration. -General surgeon recommended elective surgery as outpatient. Constipation -On [place]-Colace. UTI -Grew Irina albicans. On fluconazole until 06/13. Nondisplaced with mild compression of T1 vertebrae -Neurosurgeon following. -Per neurosurgeon continue conservative treatment with medications, therapy. -Continue cervical brace for T1 fracture -Mobilized out of bed with brace Acute on chronic lower back pain -Patient needs physical therapy. Most likely exacerbated since he is laying in bed all day. Education given to patient. Noncompliant. -On Percocet when necessary for pain. Will add Flexeril due to muscle spasms and give Lidoderm patch. Gluteal myofascia pain secondary to trauma -Hip and femur x-ray was negative -Knees PT. COPD/asthma -on duonebs. -At home he is on albuterol for this. -Smoking cessation. Acute on Chronic kidney disease secondary to polycystic kidney disease, stable. -[employer] following. -Continue to monitor creatinine. Avoid nephrotoxins. Strict ins and outs. -Per brim ironer hand kidney failures advanced and patient may need dialysis. -Recommended for patient to follow-up with [facility]. Hypertension/hypertensive renal disease -Uncontrolled but better controlled. -On amlodipine and hydralazine. Anemia, symptomatic -Patient has a history of iron deficiency anemia secondary to polycystic kidney disease and is noncompliant with treatment.. No signs of active bleeding. -Status post transfusion with packed red blood cells and responded appropriately. Tobacco dependence -Encourage smoking cessation. Patient is already trying to quit. He declined any nicotine patch. Type 2 diabetes - glipizide held. -Continue with insulin sliding scale. Will adjust insulin based on Accu-Cheks. Polycystic kidney disease/polycystic liver disease/hyperlipidemia/hypertension/ anxiety -Continue home medication. DVT prophylaxis - SCDs/ALIRIO. Discharge Planning Patient medically stable for discharge waiting for placement. Mary Ellen Benites MD Jun 04, 2017 12:12
[2017-06-04] MEDS ORDERED: CYCLOBENZAPRINE HCL 10 MG TAB PO SCH (14:00)
[2017-06-04] MEDS ORDERED: REMOVE OLD LIDOCAINE PATCH T-DERMAL SCH (21:00)
== END 2017-06-04 19:06 | DRG 551 ==
LOC: PHED 03:21 → PHEDA 07:24 → N06A 09:22 → N03A 05-29 10:30 → N05A 06-02 13:30
PROVIDERS: ADMIT Hospitalist; ATTEND Hospitalist
PROC: 30233N1 Transfusion of Nonautologous Red Blood Cells into Peripheral Vein, Percutaneous Approach (ICD-10-PCS; principal; 2017-05-25)
PROC: 5A1935Z Respiratory Ventilation, Less than 24 Consecutive Hours (ICD-10-PCS; 2017-05-29)
PROC: 0BH17EZ Insertion of Endotracheal Airway into Trachea, Via Natural or Artificial Opening (ICD-10-PCS; 2017-05-29)
PROC: 0T9B70Z Drainage of Bladder with Drainage Device, Via Natural or Artificial Opening (ICD-10-PCS; 2017-05-29)
DX: S22.018A Other fracture of first thoracic vertebra, initial encounter for closed fracture (principal); A41.9 Sepsis, unspecified organism; J96.01 Acute respiratory failure with hypoxia; J69.0 Pneumonitis due to inhalation of food and vomit; G93.41 Metabolic encephalopathy; N17.9 Acute kidney failure, unspecified; Q61.2 Polycystic kidney, adult type; Q44.6 Cystic disease of liver; J98.11 Atelectasis; B37.49 Other urogenital candidiasis; E11.22 Type 2 diabetes mellitus with diabetic chronic kidney disease; J44.9 Chronic obstructive pulmonary disease, unspecified; K42.9 Umbilical hernia without obstruction or gangrene; W10.8XXA Fall (on) (from) other stairs and steps, initial encounter; Y93.01 Activity, walking, marching and hiking; Y92.008 Other place in unspecified non-institutional (private) residence as the place of occurrence of the external cause; E78.00 Pure hypercholesterolemia, unspecified; N18.9 Chronic kidney disease, unspecified; I12.9 Hypertensive chronic kidney disease with stage 1 through stage 4 chronic kidney disease, or unspecified chronic kidney disease; Z96.653 Presence of artificial knee joint, bilateral; Z91.19 Patient's noncompliance with other medical treatment and regimen; S74.02XA Injury of sciatic nerve at hip and thigh level, left leg, initial encounter; N20.0 Calculus of kidney; M50.30 Other cervical disc degeneration, unspecified cervical region; F17.210 Nicotine dependence, cigarettes, uncomplicated; G89.29 Other chronic pain; F41.9 Anxiety disorder, unspecified; D50.9 Iron deficiency anemia, unspecified; D64.89 Other specified anemias; M47.812 Spondylosis without myelopathy or radiculopathy, cervical region; M54.16 Radiculopathy, lumbar region; K59.00 Constipation, unspecified; E87.5 Hyperkalemia; Z79.84 Long term (current) use of oral hypoglycemic drugs
CPT/HCPCS: 31500; 36430; 36600; 70450; 71010; 72100; 72125; 73110; 73502; 73552; 74176; 76775; 76999; 80048; 80053; 80069; 80076; 80186; 80307; 81001; 82550; 82607; 82728; 82746; 82805; 82948; 83010; 83540; 83550; 83615; 83735; 84155; 84484; 85018; 85025; 85027; 85044; 85384; 85610; 85730; 86403; 86850; 86900; 86901; 86920; 87040; 87070; 87086; 87147; 87186; 87205; 94002; 94003; 94150; 94640; 94664; 95819; 96361; 96374; 96375; 96376; J0360; J0696; J1165; J1170; J1450; J1815; J1885; J1956; J2060; J2270; J2405; J2543; J3010; J7030; J7050; L0150; L0172; P9016